=== PATIENT | female | born 1925 | race Caucasian/White ===

== ENCOUNTER 2016-07-15 12:20 | Emergency (ER) | payer OTHER ==
[2016-07-15 14:05] LABS: BASOPHILS 0.1 % (0-2); EOSINOPHILS 0.1 % (0-7); HEMATOCRIT 42.1 % (36.0-48.0); HEMOGLOBIN 14.1 g/dL (12-16); IMMATURE GRANULOCYTES 0.1 % (0-5); LYMPHOCYTES 14.6 % (15-50); MCH 31.4 pg (26.0-34.0); MCHC 33.5 g/dL (31.0-37.0); MCV 93.8 fL (80.0-100.0); MEAN PLATELET VOLUME 11.2 fL (7.4-10.4); MONOCYTES 13.1 % (2-11); PLATELET COUNT 116 10x3/uL (130-400); RBC 4.49 10x6/uL (4.00-5.40); RDW 14.2 % (11.5-14.5); WBC 11.2 10x3/uL (4.8-10.8)
[2016-07-15 14:51] LABS: ANION GAP 11.2 mmol/L (8-16); BILIRUBIN - TOTAL 0.88 mg/dL (0.2-1.3); CALCIUM 8.6 mg/dL (8.5-10.1); CARBON DIOXIDE 28.5 mmol/L (21.0-32.0); CREATININE - SERUM 0.8 mg/dL (0.6-1.3); POTASSIUM - SERUM 3.7 mmol/L (3.5-5.1); PROTEIN - SERUM 6.3 g/dL (6.4-8.2)
[2016-07-15 15:00] LABS: APPEARANCE HAZY (CLEAR); COLOR YELLOW (YELLOW); SPECIFIC GRAVITY 1.025 (1.005-1.020)
[2016-07-15 15:03] LABS: BILIRUBIN NEGATIVE (NEGATIVE); GLUCOSE NEGATIVE (NEGATIVE); KETONE MODERATE mg/dL (NEGATIVE); NITRITE NEGATIVE (NEGATIVE); PROTEIN 1+ mg/dL (NEGATIVE); RED CELLS - URINE 0-5 /hpf (0-5); UROBILINOGEN NORMAL (NORMAL)
[2016-07-15 15:04] LABS: AMORPHOUS SEDIMENT >1+ /lpf (NONE SEEN); BACTERIA MANY /hpf (NONE SEEN); EPITHELIAL CELLS 0-5 /hpf (0-5); GRANULAR CAST NONE SEEN /lpf (NONE SEEN); HYALINE CAST NONE SEEN /lpf (NONE SEEN); LEUKOCYTE ESTERASE 1+ (NEGATIVE); MUCUS <1+ /lpf (NONE SEEN); RED CELL CAST NONE SEEN /lpf (NONE SEEN); SPERMATOZOA NONE SEEN /hpf (NONE SEEN); WAXY CAST NONE SEEN /lpf (NONE SEEN); YEAST >1+ /hpf (NONE SEEN)
== END 2016-07-15 15:40 | disposition home or self-care (01) ==
LOC: D.ER 12:20
PROVIDERS: Emergency Medicine
DX: S16.1XXA Strain of muscle, fascia and tendon at neck level, initial encounter (principal); S13.9XXA Sprain of joints and ligaments of unspecified parts of neck, initial encounter; W19.XXXA Unspecified fall, initial encounter; R55 Syncope and collapse; N39.0 Urinary tract infection, site not specified; F03.90 Unspecified dementia, unspecified severity, without behavioral disturbance, psychotic disturbance, mood disturbance, and anxiety

== ENCOUNTER 2016-07-18 07:58 | Inpatient (IN) | payer MEDICARE, OTHER ==
[~2016-07-18] VITALS: Ht 160 cm; Wt 49.9 kg
[2016-07-18 08:44] LABS: APPEARANCE HAZY (CLEAR); BACTERIA MODERATE /hpf (NONE SEEN); BILIRUBIN NEGATIVE (NEGATIVE); COLOR DK YELLOW (YELLOW); EPITHELIAL CELLS 0-5 /hpf (0-5); GLUCOSE NEGATIVE (NEGATIVE); KETONE MODERATE mg/dL (NEGATIVE); LEUKOCYTE ESTERASE 1+ (NEGATIVE); NITRITE NEGATIVE (NEGATIVE); PROTEIN NEGATIVE (NEGATIVE); RED CELLS - URINE 0-5 /hpf (0-5); SPECIFIC GRAVITY 1.025 (1.005-1.020); UROBILINOGEN NORMAL (NORMAL); WHITE CELLS - URINE 25-50 /hpf (0-5); YEAST OCC /hpf (NONE SEEN)
[2016-07-18 08:46] LABS: UDS - AMPHET NEGATIVE QUAL (NEGATIVE); UDS - BARB NEGATIVE QUAL (NEGATIVE); UDS - BENZO NEGATIVE QUAL (NEGATIVE); UDS - COCAINE NEGATIVE QUAL (NEGATIVE); UDS - METH NEGATIVE QUAL (NEGATIVE); UDS - OPIATE NEGATIVE QUAL (NEGATIVE); UDS - PCP NEGATIVE QUAL (NEGATIVE); UDS - THC NEGATIVE QUAL (NEGATIVE)
[2016-07-18 09:01] LABS: BASOPHILS 0.1 % (0-2); EOSINOPHILS 0 % (0-7); HEMATOCRIT 44.6 % (36.0-48.0); HEMOGLOBIN 15.1 g/dL (12-16); IMMATURE GRANULOCYTES 0.3 % (0-5); MCH 31.9 pg (26.0-34.0); MCHC 33.9 g/dL (31.0-37.0); MCV 94.3 fL (80.0-100.0); MEAN PLATELET VOLUME 11.9 fL (7.4-10.4); MONOCYTES 14.7 % (2-11); NEUTROPHILS 71.9 % (40-80); RBC 4.73 10x6/uL (4.00-5.40); RDW 14.2 % (11.5-14.5); WBC 10.8 10x3/uL (4.8-10.8)
[2016-07-18 09:02] LABS: PLATELET COUNT 169 10x3/uL (130-400)
[2016-07-18 09:17] LABS: ALBUMIN 2.3 g/dL (3.4-5.0); BILIRUBIN - TOTAL 1.2 mg/dL (0.2-1.3); CALCIUM 8.4 mg/dL (8.5-10.1); CARBON DIOXIDE 24.4 mmol/L (21.0-32.0); CREATININE - SERUM 0.9 mg/dL (0.6-1.3); POTASSIUM - SERUM 4.4 mmol/L (3.5-5.1); PROTEIN - SERUM 6.6 g/dL (6.4-8.2)
--- NOTE | 2016-07-18 19:30 | NUR ---
REC'D PATIENT LYING IN BED ASLEEP, WAS EASY TO AROUSE. ALERT AND ORIENTED X1. CANNOT ANSWER QUESTIONS FOR ADMISSION HISTORY. CALLED DAUGHTER SEVERAL TIMES AND GOT NO ANSWER. STATES ON THE PAPERWORK THAT DAUGHTER DID NOT WANT TO ANSWER QUESTIONS ABOUT HER MOTHERS HISTORY EARLIER IN THE DAY. WILL PASS ON TO DAY NURSE ABT TRYING TO GET HISTORY, AND CALLING THE DAUGHTER AGAIN. NO DISTRESS NOTED. DENIED PAIN AT THIS TIME. DENIED FURTHER NEEDS AT THIS TIME. HAS PHLEM AT THE BACK OF HER THROUGHT WILL SUCTION TO GET OUT AND KEEP HOB ELEVATED DUE TO CHOKING RISK. WILL CONT TO MONITOR THROUGHOUT THE NIGHT. BED LOW, LOCKED, CALL LIGHT IN REACH.
[2016-07-19] VITALS (7 sets, daily range): BP systolic 132–168; BP diastolic 57–80; Ht 160 cm; Wt 49.9 kg
--- NOTE | 2016-07-19 02:30 | NUR ---
PATIENT WAS COMPLAINING OF PAIN IN HER STOMACH AND THAT SHE NEEDED TO HAVE A BM STATED"MY BOWELS WONT MOVE AND IT HURTS". LEWIS ALEXIS AND I WENT IN TO CHECK HER FOR IMPACTION AND SHE WAS IMPACTED, SOME WAS ALREADY STARTING TO COME OUT AND I HEPLED THE REST OUT UNTIL THERE WAS SOFT BM COMING. SHE HAD AN XL STOOL. PATIENT STATED" MY BOWELS FEEL BETTER NOW". AFTER WE WERE DONE. BED LOW, LOCKED, CALL LIGHT IN REACH, ALARM IS NOW ON.
[2016-07-19 07:04] LABS: BASOPHILS 0.1 % (0-2); EOSINOPHILS 0 % (0-7); HEMATOCRIT 38.6 % (36.0-48.0); HEMOGLOBIN 12.7 g/dL (12-16); IMMATURE GRANULOCYTES 0.2 % (0-5); LYMPHOCYTES 10.8 % (15-50); MCH 31.3 pg (26.0-34.0); MCHC 32.9 g/dL (31.0-37.0); MCV 95.1 fL (80.0-100.0); MEAN PLATELET VOLUME 10.5 fL (7.4-10.4); MONOCYTES 9.9 % (2-11); PLATELET COUNT 181 10x3/uL (130-400); RBC 4.06 10x6/uL (4.00-5.40); RDW 14.2 % (11.5-14.5); WBC 8.8 10x3/uL (4.8-10.8)
[2016-07-19 07:16] LABS: CALCIUM 8.4 mg/dL (8.5-10.1); CREATININE - SERUM 0.8 mg/dL (0.6-1.3)
--- NOTE | 2016-07-19 07:30 | NUR ---
RECIEVED PT DURING WALKING ROUNDS. PT RESTING IN BED WITH NO VISABLE SIGNS OF PAIN OR DISCOMFORT. ASSESSMENT DONE PER FLOWSHEET. BED IN LOW POSITION AND CALL LIGHT WITHIN REACH. WILL CONTINUE TO MONITOR.
--- NOTE | 2016-07-19 15:52 | NUR ---
SCHEDULED ANTIBIOTIC ADMINISTERED AT THIS TIME. PT SLEEPING WITH RESPIRATIONS EVEN AND NON LABORED. CALL LIGHT IN REACH, WILL CONTINUE WITH PLAN OF CARE.
--- NOTE | 2016-07-19 17:58 | NUR ---
ATTEMPTED TO CALL RICARDO RADHA, PT'S DAUGHTER, AT [phone] AT THIS TIME REGARDING MRI SCREENING. SHE DID NOT ANSWER, SO VOICEMAIL LEFT FOR HER TO CALL ME BACK.
--- NOTE | 2016-07-19 18:34 | NUR ---
SAAD VALADEZPET CARE ATTENDANT TO NOTIFY SPEECH THERAPY OF BEDSIDE SWALLOW EVALUATION. PT TAKEN TO MRI AT THIS TIME.
[2016-07-20] VITALS: BP 119/55
--- NOTE | 2016-07-20 | NUR ---
REC'D PATIENT LYING IN BED. NO DISTRESS NOTED. DENIED PAIN AT THIS TIME. ALERT AND ORIENTED X1. INSTRUCTED TO CALL IF NEEDED ANYTHING. VERBALIZED UNDERSTANDING. BED LOW, LOCKED, CALL LIGHT IN REACH, ALARM ON.
[2016-07-20 04:00] VITALS: BP 147/48
--- NOTE | 2016-07-20 04:27 | NUR ---
PATIENT IS RESTING IN BED. NO DISTRESS NOTED. CALLED DAUGHTER EARLIER IN THE NIGHT GOT THE VM AND LEFT A MSG REGARDING TRYING TO GET INFORMATION ABT HER MOTHERS HISTORY. CALL WAS NOT RETURNED.
[2016-07-20 08:31] VITALS: BP 147/51
[2016-07-20 09:14] LABS: BASOPHILS 0.1 % (0-2); EOSINOPHILS 0.5 % (0-7); HEMATOCRIT 40.5 % (36.0-48.0); HEMOGLOBIN 13.2 g/dL (12-16); IMMATURE GRANULOCYTES 0.5 % (0-5); LYMPHOCYTES 22.8 % (15-50); MCH 31.6 pg (26.0-34.0); MCHC 32.6 g/dL (31.0-37.0); MCV 96.9 fL (80.0-100.0); MEAN PLATELET VOLUME 11.2 fL (7.4-10.4); MONOCYTES 10.4 % (2-11); NEUTROPHILS 65.7 % (40-80); PLATELET COUNT 167 10x3/uL (130-400); RBC 4.18 10x6/uL (4.00-5.40); RDW 14.2 % (11.5-14.5)
[2016-07-20] MEDS ORDERED: LEVOXYL150 MCG PO (09:18)
[2016-07-20] MEDS ORDERED: RISPERDAL0.5 MG PO (09:18)
[2016-07-20] MEDS ORDERED: MACRODANTIN100 MG PO (09:19)
[2016-07-20] MEDS ORDERED: DONEPEZIL HCL5 M1 PO (09:19)
[2016-07-20] MEDS ORDERED: HYDROCODON-ACE1 EAC7 PO (09:20)
[2016-07-20] MEDS ORDERED: DEPAKOTE125 MG PO (09:20)
[2016-07-20] MEDS ORDERED: LOMOTIL TABLET1 TAB PO (09:22)
[2016-07-20] MEDS ORDERED: CHOLESTYRAMIN4 G/PK1 PO (09:22)
[2016-07-20 09:33] LABS: ALBUMIN 2.3 g/dL (3.4-5.0); ANION GAP 14.1 mmol/L (8-16); CALCIUM 8.4 mg/dL (8.5-10.1); CARBON DIOXIDE 26.8 mmol/L (21.0-32.0); CREATININE - SERUM 0.8 mg/dL (0.6-1.3); POTASSIUM - SERUM 3.9 mmol/L (3.5-5.1); PROTEIN - SERUM 5.9 g/dL (6.4-8.2)
[2016-07-20 09:49] LABS: BILIRUBIN - TOTAL 0.57 mg/dL (0.2-1.3)
--- NOTE | 2016-07-20 09:50 | NUR ---
PATIENT ALERT IN BED. NO SIGNS OF DISTRESS NOTED. SIDE RAILS UP X2. BED IN LOW POSITION. CALL LIGHT IN REACH. DOOR OPEN
[2016-07-20 12:14] VITALS: BP 140/51
[2016-07-20 16:28] VITALS: BP 121/44
[2016-07-20 20:00] VITALS: BP 152/59
--- NOTE | 2016-07-21 02:00 | NUR ---
PT IN BED WITH NO DISTRESS. RESPIRATIONS EVEN AND UNLABORED. SIDE RAILS X 2. BED LOW. CALL LIGHT IN REACH.
[2016-07-21 04:00] VITALS: BP 142/68
[2016-07-21 08:49] VITALS: BP 118/55
--- NOTE | 2016-07-21 11:04 | NUR ---
Patient Name: ROSA GARCIA Admission Status: ER Accout number: [id number] Admission Date: 07-20-2016 : 1927 Admission Diagnosis: Attending: LEONIE Current LOS: 1 Anticipated DC Date: 07-24-2016 Planned Disposition: Home Primary Insurance: MEDICARE A & B Discharge Planning Comments: CM CALLED PATIENTS DAUGHTER (RICARDO) REGARDING D/C NEEDS AND PLANS. PATIENT LIVES WITH HER DAUGHTER AND SHE WILL TRANSPORT HER HOME AT DISCHARGE. PATIENT HAS 2 STEPS TO ENTER HOME AND NO STAIRS INSIDE. PATIENT IS PARTIAL DEPENDENT-DAUGHTER HELPS HER DRESS, AND DIRECTS HER TO SHOWER. PATIENT HAS A ROLATOR WALKER AND GLUCOMETER AT HOME. DAUGHTER ALSO HELPS WITH MEDICATION. PATIENT HAS NO PCP AND WILL USE [facility] ON [address]. PATIENTS DAUGHTER CHOSE [facility] OVER THE PHONE IF NEEDED (KATHI FORM). CM WILL CONTINUE TO FOLLOW PATIENT WITH D/C NEEDS AND PLANS. PCP NONE [facility] [address] [phone] RICARDO GARCIA (DAUGHTER) [phone] Flocculator Operator: Teresita Pope Is the patient Alert and Oriented? No 0 * How many steps to enter\exit or inside your home? 2 W/O RAIL 0 * PCP NO PCP 0 * Pharmacy [facility] [address] 0 * Preadmission Environment Home with Family 0 * ADLs Partial Dependent 0 * Partial ADLs (Assistance needed) Ambulation Bathing Dressing Medication Management Toileting Transfers 0 * Equipment Glucometer Walker 0 * List name and contact numbers for known caregivers / representatives who currently or will assist patient after discharge: RICARDO GARCIA (DAUGHTER) [phone] 0 * Community resources currently utilized None 0 * Additional services required to return to the preadmission environment? Yes 0 * Can the patient safely return to the preadmission environment? Yes 0 * Has this patient been hospitalized within the prior 30 days at any hospital? No 0 Grand Total: 0
[2016-07-21 12:05] VITALS: BP 132/63
--- NOTE | 2016-07-21 14:10 | NUR ---
NUTRITION MONITORING & EVAL CHART REVIEWED. PUREED DIET WITH HONEY THICK LIQUIDS. REQUIRES ASSIST WITH MEALS. 25% INTAKE RECENT MEALS. WILL CONTINUE TO PROVIDE DIET, MONITOR PO INTAKE. RD FOLLOWING
--- NOTE | 2016-07-21 14:10 | CN ---
PATIENT NAME:ROSA GARCIA MEDICAL RECORD: [id number] : [birth year] LOCATION:D.[facility] ADMIT DATE: 07/20/16 ACCOUNT: [id number] CONSULTING PHYSICIAN: CHRISTY OROZCO MD REFERRING PHYSICIAN: SONYA ROBERTS MD DATE OF CONSULTATION: 07/19/2016 IDENTIFYING DATA: The patient is 89 years old and she is admitted to the hospital on a voluntary basis. CHIEF COMPLAINT: Confusion. HISTORY OF PRESENT ILLNESS: The patient is basically uninterviewable. She apparently is very hard of hearing and despite shouting directly into her ear, she is not understanding or at least I do not think she is understanding me. She is clearly quite confused, but it is difficult to tell if the answers she has given me do not make sense because she is hard of hearing or because she is confused. It is a mixture of both, I am just not sure the relative percentage is. For example, I really cannot shout any louder without disturbing patients in adjacent rooms, but shouting directly into her ear how are you repeatedly is interpreted as who wants me. The patient was brought to the Emergency Room in poor condition, has a urinary tract infection and has been admitted to the medical floor. MENTAL STATUS EXAMINATION: Not possible. ASSESSMENT: Dementia versus delirium. PLAN: At this time, I recommend the patient once medically stabilized be transferred to [facility]. If it is possible to find her hearing aids, assuming she has some that would be quite helpful. She clearly cannot live independently and is in need of assessment and services. TRANSINT:[id number] Voice Confirmation ID: [id number] DOCUMENT ID: [id number] CHRISTY OROZCO MD at 1410 CC: [id number] DICTATION DATE: 07/19/16 1315 NUT DEHYDRATOR OPERATOR: 07/19/162048 ADM IN [id number] [place] [address]
[2016-07-21 15:57] VITALS: BP 116/54
[2016-07-21 20:03] VITALS: BP 118/60
--- NOTE | 2016-07-21 22:43 | NUR ---
REC'D PATIENT ASLEEP IN BED. NO DISTRESS NOTED. WILL CONT TO MONITOR. WILL ADMIN PM MEDS PRESCRIBED. BED LOW, LOCKED, CALL LIGHT IN REACH, ALARM ON.
--- NOTE | 2016-07-22 02:00 | NUR ---
PT IN BED WITH NO DISTRESS. RESPIRATIONS EVEN AND UNLABORED. SIDE RAILS X 2. BED LOW. CALL LIGHT IN REACH.
--- NOTE | 2016-07-22 03:24 | NUR ---
PATIENT IS RESTING IN BED COMFORTABLY. NO DISTRESS NOTED. WILL CONT TO MONITOR. BED LOW, LOCKED, CALL LIGHT IN REACH.
[2016-07-22 04:00] VITALS: BP 160/67
--- NOTE | 2016-07-22 07:30 | NUR ---
PT ASSESSMENT COMPLETE AWAKE AND ALERT ORIENTED TO NAME ONLY PT DISORIENTED TO PLACE AND SITUATION. ALL ALDS PER STAFF ASSIT. INCT B/B NO ACUTE DISTRESS AT THIS TIME.
[2016-07-22 08:25] VITALS: BP 151/64
--- NOTE | 2016-07-22 09:48 | NUR ---
CHAD SPOKE WITH PATIENTS DAUGHTER (PER DR. CEDILLO REQUEST) REGARDING PATIENT GOING [facility] W[facility]YSICAL THERAPY TO GET STRONGER BEFORE GOING HOME. PATIENTS DAUGHTER AGREED TO DR. CEDILLO PLAN. RAQUEL IN [facility] WAS NOTIFIED. RAQUEL STATED DR. OROZCO WOULD COME AND SEE PATIENT TODAY.
--- NOTE | 2016-07-22 12:00 | NUR ---
PT WITH NO ACUTE DISTRES SNTOE DVOICES NEEDS TO STAFF YELLS OUT FREQUENTLY. INCT B/B BED ALARM ON
--- NOTE | 2016-07-22 13:38 | NUR ---
CM REASSESSMENT NOTE: PATIENT IS DISCHARGING TO [facility] TODAY-FAMILY AWARE
[2016-07-22 15:07] VITALS: BP 140/66
--- NOTE | 2016-07-22 15:30 | NUR ---
DISORIENTED TO TIME,PLACE AND SITUATION. FREQUENTLY YELLING OUT "HELP ME". BED ALARM IN USE.
--- NOTE | 2016-07-22 18:05 | NUR ---
REPORT CALLED TO [facility] PT TO BE TRANSFERED VIA WHEELCHAIR TO [facility].
== END 2016-07-22 18:06 | DRG 690 ==
LOC: D.ER 07:58 → D.MS 16:45 → OBSVTIME 16:45 → D.MS 07-20 16:00
PROVIDERS: Emergency Medicine; ADMIT Family Medicine
DX: N39.0 Urinary tract infection, site not specified (principal); F05 Delirium due to known physiological condition; F03.90 Unspecified dementia, unspecified severity, without behavioral disturbance, psychotic disturbance, mood disturbance, and anxiety; E11.9 Type 2 diabetes mellitus without complications; K58.9 Irritable bowel syndrome, unspecified; M16.0 Bilateral primary osteoarthritis of hip; M17.0 Bilateral primary osteoarthritis of knee

== ENCOUNTER 2016-07-22 17:02 | Inpatient (IN) | payer MEDICARE, OTHER ==
[~2016-07-22 17:02] MED LIST: CHOLESTYRAMIN4 G/PK1 PO; DEPAKOTE125 MG PO; DONEPEZIL HCL5 M1 PO; HYDROCODON-ACE1 EAC7 PO; LEVOXYL150 MCG PO; LOMOTIL TABLET1 TAB PO; MACRODANTIN100 MG PO; RISPERDAL0.5 MG PO
--- NOTE | 2016-07-22 17:43 | NUR ---
PT BEING ADMITTED FROM [facility] FOR INCREASED CONFUSION. UPON ADMIT TO THE HOSPITAL PT WAS COVERED IN FECES AND URINE. SHE WAS UNABLE TO COMMUNICATE EFFECTIVELY. SHE WAS UNABLE TO EAT AND DRINK. PT WAS NOT TAKING HER MEDICATIONS AT HOME. DAUGHTER GAVE VERBAL CONSENT FOR ADMIT AND STATED THAT SHE WAS HER GUARDIAN. PAPERWORK REQUESTED FROM THE DAUGHTER. CODE STATUS ADDRESSED AND PT IS A FULL CODE.
[2016-07-22 19:00] VITALS: BMI 23.4
[2016-07-22 19:08] LABS: BASOPHILS 0.2 % (0-2); EOSINOPHILS 3.5 % (0-7); HEMATOCRIT 39.3 % (36.0-48.0); HEMOGLOBIN 13.1 g/dL (12-16); IMMATURE GRANULOCYTES 0.7 % (0-5); LYMPHOCYTES 24.2 % (15-50); MCH 31.3 pg (26.0-34.0); MCHC 33.3 g/dL (31.0-37.0); MEAN PLATELET VOLUME 10.5 fL (7.4-10.4); MONOCYTES 11.3 % (2-11); NEUTROPHILS 60.1 % (40-80); PLATELET COUNT 174 10x3/uL (130-400); RBC 4.18 10x6/uL (4.00-5.40); RDW 13.8 % (11.5-14.5); WBC 8.7 10x3/uL (4.8-10.8)
[2016-07-22 19:29] LABS: HEMOGLOBIN A1C 6.3 % (4.8-6.0)
[2016-07-22 20:03] LABS: ALBUMIN 2.4 g/dL (3.4-5.0); ALKALINE PHOSPHATASE 70 U/L (46-116); ALT (SGPT) 41 U/L (10-68); BILIRUBIN - TOTAL 0.39 mg/dL (0.2-1.3); CALC OSMOLALITY 282 mosm/kg (275-300); CALCIUM 8.6 mg/dL (8.5-10.1); CARBON DIOXIDE 28.7 mmol/L (21.0-32.0); CHLORIDE - SERUM 103 mmol/L (98-107); CHOLESTEROL, TOTAL 116 mg/dL (0-200); CREATININE - SERUM 0.7 mg/dL (0.6-1.3); GLUCOSE 207 mg/dL (74-106); HDL CHOLESTEROL 39 mg/dL (32-96); LDL CHOLESTEROL 51 mg/dL (0-100); LDL-HDL RATIO 1.3 ratio (1.5-3.5); POTASSIUM - SERUM 3.1 mmol/L (3.5-5.1); PROTEIN - SERUM 6.2 g/dL (6.4-8.2); SODIUM 139 mmol/L (136-145); THYROID STIMULATING HORMONE 3.49 uIU/mL (0.36-3.74); TRIGLYCERIDE 132 mg/dL (30-200); UREA NITROGEN 11 mg/dL (7-18); eGFR NON AFRICAN AMERICAN 83 mL/min (90-120)
--- NOTE | 2016-07-22 21:03 | NUR ---
RECEIVED IN HALLWAY OUTSIDE OF NURSES STATION. CALM AND COOPERATIVE WITH CARE AND ASSESSMENTS. CONFUSED. NOT EXPRESSING NEEDS. REINFORCE FALLS SAFETY. RESTING IN BED EYES CLOSED AT THIS TIME. CONTINUE PLAN OF CARE
[2016-07-22 22:12] VITALS: BP 155/74; BMI 23.4
[2016-07-22 22:52] VITALS: BP 155/74
[2016-07-23 08:00] VITALS: BP 126/50
--- NOTE | 2016-07-23 13:07 | NUR ---
B) PATIENT IS CONFUSED, HER SHORT TERM MEMORY RECALL IS POOR. SHE SAYS "SOMEONE HELP ME" EVEN IF STAFF ARE RIGHT NEXT TO HER. PATIENT YELLS OUT AND SAYS SHE CAN'T WALK. I) PROVIDE PRESCRIBED MEDS. R) PATIENT IS COMPLIANT WITH MEDS, BUT DOES COMPREHEND WHAT IS BEING SAID TO HER. P) CONTINUE PLAN OF CARE.
[2016-07-23 14:30] VITALS: Wt 59.9 kg
[2016-07-23 20:00] VITALS: BP 133/58
--- NOTE | 2016-07-24 01:46 | NUR ---
B) Recieved patient in the day room, alert and oriented to self, very confused, yells outfor help at times when she needs nothing, I) Administered perscribed medications, monitored for safety and falls, redirected as needed, R) Medication compliant, difficultly staying asleep, yelling out that she is cold then kicking off her covers, P) Continue plan of care.
[2016-07-24 08:00] VITALS: BP 139/67
[2016-07-24 09:19] LABS: FOLATE (FOLIC ACID) - SERUM 3.9 ng/mL (>3.0)
[2016-07-24 10:20] LABS: VITAMIN D 25 HYDROXY 25.1 ng/mL (30.0-100.0)
--- NOTE | 2016-07-24 11:11 | NUR ---
PATIENT C/O PAIN, SHE SAYS IT IS GENERALIZED PAIN ON HER RIGHT SIDE. PATIENT IS YELLING OUT "HELP ME" SHE DID RECEIVE PAIN MEDS NORCO 5 PO NOW. DID TAKE HER TO THE BATHROOM AND SHE YELLED AND SAID "I CAN'T STAND, I CAN'T WALK, I'M PARALYZED" SHE DOES NOT WANT TO EVEN TRY, BUT SHE DID STAND WITH ASSIST. I) PROVIDE PRESCRIBED MEDS. R) PATIENT IS COMPLIANT WITH MEDS. P) CONTINUE PLAN OF CARE.
--- NOTE | 2016-07-24 12:00 | NUR ---
PATIENT IS STILL YELLING OUT "HELP ME, HELP ME". SHE STILL C/O PAIN. YELLS OUT "I HURT, I'M IN PAIN" REPOSITIONED.
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
[2016-07-24 19:20] VITALS: BP 150/66
--- NOTE | 2016-07-24 20:20 | NUR ---
RECEIVED IN DAYROOM, SITTING IN RECLINER WATCHING TV. CALM AND COOPERATIVE WITH CARE. VERY CONFUSED. ASSESSMENT COMPLETED PER FLOW SHEET. ADMINISTER PRESCRIBED MEDS. REDIRECT AND REORIENT NEEDED. MAINTAIN SAFETY PRECAUTIONS. MEDICATION COMPLIANT. CONTINUE PLAN OF CARE.
--- NOTE | 2016-07-25 09:07 | NUR ---
CALLED PATIENT'S DAUGHTER DID GET PHARMACY, IT IS [facility] ON [address].
[2016-07-25 09:25] VITALS: BP 113/64
--- NOTE | 2016-07-25 10:30 | NUR ---
B) PATIENT IS AWAKE AND ALERT, BUT SHE IS CONFUSED, SHE DOES KEEP ASKING GOD TO LET HER GO HOME "I HAVE AN APPOINTMENT WITH MY HOUSE, I HAVE A NICE HOUSE" SHE DID TRY TO PUT HERSELF IN THE FLOOR SEVERAL TIMES, SHE SAYS "IF I GET IN THE FLOOR THEN THAT WILL FIX MY SITUATION" PATIENT REDIRECTED AND REORIENTED TO REALITY. SAT WITH PATIENT AND SPOKE WITH HER A LITTLE AND THAT HELPED TO CALM HER, BIANCA SAT WITH HER AND JOKED WITH HER AND SHE LAUGHED AND SMILED. I) PROVIDE PRESCRIBED MEDS. R) PATIENT IS COMPLIANT WITH MEDS. MACI CHRISTIANSON RN WENT TO FLUSH S.L. AND IT BEGAN TO BURN PATIENT, D/C'D S.L., CATH INTACT, VIDYA APPLIED. P) CONTINUE PLAN OF CARE.
[2016-07-25 20:12] VITALS: BP 134/52
[2016-07-26 08:39] VITALS: BP 128/65
--- NOTE | 2016-07-26 10:43 | NUR ---
B) PATIENT KEEPS SAYING SHE HAS TO GO TO [facility]. PATIENT DID NOT WANT TO GET UP THIS MORNING. SHE SCREAMED. TOOK HER BLOOD PRESSURE AND SHE SCREAMED "ABUSE" SHE SAID WE WERE BEING CRUEL TO HER. PATIEN CAN SELF PROPEL IN THE W/C AND SHE CAN STAND, BUT SHE SCREAMS AT TIMES, SHE OFTEN SAYS "I CAN'T, I CAN'T" PATIENT IS CONFUSED, SHE IS VERY [place] AND SHE HAS A POOR SHORT TERM MEMORY RECALL. I) PROVIDE PRESCRIBED MEDS. R) PATIENT IS COMPLIANT WITH MEDS. SHE IS SLEEPY, SHE HAS HER HEAD ON THE TABLE, SHE WILL GO FOR A SHOWER SOON. P) CONTINUE PLAN OF CARE.
--- NOTE | 2016-07-26 15:07 | NUR ---
B) PATIENT IS AWAKE AND ALERT, BUT VERY CONFUSED. SHE THINKS SHE IS GOING HOME. SHE ASKS FOR SOMEONE TO HELP HER, BUT THEN HAS NO IDEA WHAT TO ASK FOR. SHE CAN NOT HEAR SO IT IS DIFFICULT TO CONVERSE WITH HER. I) PROVIDE PRESCRIBED MEDS. R) PATIENT IS COMPLIANT WITH MEDS. P) CONTINUE POC.
[2016-07-26 19:30] VITALS: BP 115/63
--- NOTE | 2016-07-27 | NUR ---
B) Recieved patient in the day room, in a edi chair, alert and oriented to self, patient is very [place], I) Administered perscribed medications, monitored for safety, R) Medication compliant, cooperative with staff, P) Continue plan of care.
[2016-07-27 07:00] VITALS: BP 120/72
--- NOTE | 2016-07-27 14:34 | NUR ---
RECEIVED THIS AM IN BED.TRANSFERRED TO RECLINER PER TWO POST LIDIA CARE FOR INCONTINENCE OF URINE.SKIN BENEATH BREAST OBSERVED TO BE RED,EXCORIATED.VERY HARD OF HEARING.CRIES OUT TO GOD TO GET HER HOME WHERE ITS WARM.EXTRA BLANKETS AND FLANNEL SHEET USED TO COVER HER.IS COMPLIANT WITH MEDS AND STAFF.WILL CONTINUE WITH PLAN OF CARE AND MONITOR FOR CHANGES.
[2016-07-27 19:30] VITALS: BP 124/89
--- NOTE | 2016-07-27 20:02 | NUR ---
RECEIVED IN DAYROOM. SITTING IN A RECLINING CHAIR WITH PEERS AT HER SIDE. CONFUSED. CALM AND COOPERATIVE WITH CARE AND ASSESSMENTS. REDIRECT AND REORIENT NEEDED. CONTINUES TO SIT QUIETLY IN RECLINING CHAIR. CONTINUE PLAN OF CARE
[2016-07-28 07:00] VITALS: BP 142/63
--- NOTE | 2016-07-28 09:00 | PN ---
PATIENT:ROSA GARCIA MEDICAL RECORD: [id number] LOCATION:[facility] ADMISSION DATE: 07/22/16 PROGRESS NOTE DATE OF SERVICE: 07/25/2016 SUBJECTIVE: The patient states that she does not like being here. OBJECTIVE: The patient has continued to show affective lability. She is very defensive when spoken to; however, she did sleep 7 hours. Adult protective services is involved. On exam, mood is irritable. Affect is brittle. Speech is repetitive. Content of thought is positive for nonspecific paranoid ideation. Sensorium shows no change. ASSESSMENT: No change in diagnosis. PLAN: 1. Continue present medications. 2. Continue supportive therapy. TRANSINT:[id number] Voice Confirmation ID: [id number] DOCUMENT ID: [id number] NORRIS NEWBY III, MD at 0900 CC: [id number] DICTATION DATE: 07/25/168 EQUIPMENT CLEANER AND TESTER: 07/25/16 2111 ADM IN [id number] [place] [address]
--- NOTE | 2016-07-28 13:32 | NUR ---
Recived this am, alert and oriented to self only, unccoperative with ADL care, yells out and does not reorient to situation. Difficulty with conversation and directions, hearing aid in place right ear. Redirect and reorient. Monitor safety. No evidence of reorientation. Small open area approxiomately 0.5x1.5 cm to right buttock, alee cream applied, skin kept clean and dry. Rodrick cushion to chair. Safety maintained. Continue plan of care.
--- NOTE | 2016-07-28 14:09 | PN ---
PATIENT:ROSA GARCIA MEDICAL RECORD: [id number] LOCATION:[facility] ADMISSION DATE: 07/22/16 PROGRESS NOTE DATE OF SERVICE: 07/24/2016 SUBJECTIVE: The patient's case was discussed with staff. She has no new complaint. OBJECTIVE: The patient is severely impaired cognitively, but she has not been openly aggressive. She is not eating well, but she says she is going to try to do better. ASSESSMENT: No change in diagnoses. PLAN: The patient's current medicines are being reviewed. I am going to stop her Depakote which is subtherapeutic. Her long-term prognosis is guarded. TRANSINT:[id number] Voice Confirmation ID: [id number] DOCUMENT ID: [id number] CHRISTY OROZCO MD at 1409 CC: [id number] DICTATION DATE: 07/24/16 1414 MUNICIPAL SERVICES MANAGER: 07/25/16 0258 ADM IN [id number] [place] [address]
--- NOTE | 2016-07-28 14:56 | NUR ---
Nutrition follow-up: Diet: Regular puree with honey thick liquids Magic Cup BID PO intake ~45% average of last 9 meals Labs reviewed No BM charted since admit RDN following.
[2016-07-28 19:30] VITALS: BP 137/61
--- NOTE | 2016-07-28 19:40 | NUR ---
RECEIVED IN HALLWAY. SITTING OUTSIDE OF NURSES STAION. CONFUSED. CALM AND COOPERATIVE WITH CARE AND ASSESSMENTS. REDIRECT AND REORIENT NEEDED. ENCOURAGE TO EXPRESS NEEDS. CONTINUES TO SIT QUIETLY IN CHAIR. CONTINUE PLAN OF CARE
--- NOTE | 2016-07-29 09:42 | PN ---
PATIENT:ROSA GARCIA MEDICAL RECORD: [id number] LOCATION:[facility] ADMISSION DATE: 07/22/16 PROGRESS NOTE DATE OF SERVICE: 07/28/2016 SUBJECTIVE: The patient case was discussed with staff. She has no new complaint. OBJECTIVE: The patient was in good behavioral control, but at times she can be quite uncooperative. When I speak with her, she is cooperative, but right after doing so the aide in the day room told me that she has been verbally abusive and agitated all throughout the day. She is not eating very well, only about half of what is presented to her. She is sleeping reasonably well. ASSESSMENT: No change in diagnosis. PLAN: At this point, I think the Risperdal that the patient has been on needs to be changed and I am going to give her a reasonable dose of Geodon for her underlying agitation. Her fci prognosis is guarded. Adult protective services is involved in the case to make sure she is receiving adequate and appropriate care and I will work with them on discharge planning. TRANSINT:[id number] Voice Confirmation ID: [id number] DOCUMENT ID: [id number] CHRISTY OROZCO MD at 0942 CC: [id number] DICTATION DATE: 07/28/16 1419 MUSIC THERAPIST PUBLIC SCHOOL SYSTEM: 07/28/16 2205 ADM [id number] [place] [address]
[2016-07-29 10:14] VITALS: BP 118/61
--- NOTE | 2016-07-29 14:57 | NUR ---
ORIENTED TO SELF ONLY.COMPLIANT WITH MEDS AND STAFF.MEDS TAKEN CRUSHED AND IN APPLESAUCE.WILL CONTINUE WITH PLAN OF CARE,MONITOR FOR CHANGES AND SAFETY
[2016-07-29 19:43] VITALS: BP 122/59
--- NOTE | 2016-07-29 19:57 | NUR ---
RECEIVED IN DAYROOM. SITTING IN RECLINING CHAIR WITH HER FEET UP. CONFUSED. CALM AND COOPERATIVE WITH CARE AND ASSESSMENTS. REDIRECT AND REORIENT NEEDED. ENCOURAGE TO EXPRESS NEEDS. CONTINUES TO SIT QUIETLY. CONTINUE PLAN OF CARE
[2016-07-30 08:49] VITALS: BP 145/71
--- NOTE | 2016-07-30 10:00 | NUR ---
B) Rec'd pt in day room, alert, confused, cooperative, calm, no s/s distress. I) Admin meds as ordered, group therapy provided. R) No s/s adverse reaction to meds, tee well. Compliant with group therapy. P) Cont current POC including meds and group therapy.
--- NOTE | 2016-07-30 14:59 | PN ---
PATIENT:ROSA GARCIA MEDICAL RECORD: [id number] LOCATION:JENNY [facility] ADMISSION DATE: 07/22/16 PROGRESS NOTE DATE OF SERVICE: 07/29/2016 SUBJECTIVE: The patient's case was discussed with staff. She has no new complaint. OBJECTIVE: The patient denies intent to harm herself or others. She generally tolerates her medicines well. ASSESSMENT: No change in diagnoses. PLAN: Brief supportive and educational interventions were made. Long-term prognosis is guarded. TRANSINT:[id number] Voice Confirmation ID: [id number] DOCUMENT ID: [id number] CHRISTY OROZCO MD at 1459 CC: [id number] DICTATION DATE: 07/29/16 1004 SOIL SURVEYOR: 07/29/16 1034 ADM IN [id number]
[2016-07-30 20:00] VITALS: BP 140/50
--- NOTE | 2016-07-31 00:56 | NUR ---
B) Recieved patient in the day room, in a gerichair, alert and oriented to self, calm and cooperative, I) Administered perscribed medications, monitored for safety and falls, R) Medication compliant, sleeping now, P) Continue plan of care.
[2016-07-31 08:30] VITALS: BP 138/77
--- NOTE | 2016-07-31 08:59 | PN ---
PATIENT:ROSA GARCIA MEDICAL RECORD: [id number] LOCATION:JENNY [facility]gron ADMISSION DATE: 07/22/16 PROGRESS NOTE DATE OF SERVICE: 07/30/2016 SUBJECTIVE: The patient's case was discussed with staff. She has no new complaint. OBJECTIVE: The patient denies intent to harm herself or others. She does tolerate her medicines well. ASSESSMENT: No change in diagnoses. PLAN: The patient may be transitioned out of the hospital soon if this level of improvement is maintained. TRANSINT:[id number] Voice Confirmation ID: [id number] DOCUMENT ID: [id number] CHRISTY OROZCO MD at 0859 CC: [id number] DICTATION DATE: 07/30/16 1506 SPECIALTY MOLDER: 07/30/16 2112 ADM [id number] [place] [address]
--- NOTE | 2016-07-31 11:40 | NUR ---
B) PATIENT IS CONFUSED AND SHE SAYS "CAN SOMEONE HELP ME TO TRANSFER" PATIENT IS ORIENTED TO SELF ONLY. SHE IS [place]. I) PROVIDE PRESCRIBED MEDS. R) PATENT IS COMPLIANT WITH MEDS. P) CONTINUE POC.
--- NOTE | 2016-07-31 21:00 | NUR ---
RECEIVED IN DAYROOM SITTING IN RECLINER. ORIENTED TO SELF ONLY. RESTING WITH EYES CLOSED. CALM AND QUIET WITH ASSESSMENT. MEDICATIONS TAKEN CRUSHED IN APPLESAUCE. WILL CONTINUE PLAN OF CARE, MONITOR FOR SAFETY AND ANY CHANGES.
[2016-07-31 22:04] VITALS: BP 147/55
[2016-08-01 09:48] VITALS: BP 164/71
--- NOTE | 2016-08-01 16:24 | NUR ---
Received alert and oriented to self only. Redirect and reorient. Monitor for any changes in behavior. Encourage group participation. Monitor safety. Compliant with medications. Cooperative and calm with care. No yelling out with am ADL care. Safety maintained. Continue with plan of care.
--- NOTE | 2016-08-01 17:11 | PN ---
PATIENT:ROSA GARCIA MEDICAL RECORD: [id number] LOCATION:[facility] ADMISSION DATE: 07/22/16 PROGRESS NOTE DATE OF SERVICE: 07/31/2016 SUBJECTIVE: The patient's case was discussed with staff. She has no new complaint. OBJECTIVE: The patient is in good behavioral control with limited insight about her condition. She generally tolerates her medicines well. ASSESSMENT: No change in diagnoses. PLAN: Current medicines and therapies have been reviewed and will be maintained. Long-term prognosis is guarded. Brief supportive and educational interventions were made. I anticipate she can be transitioned out of the hospital soon if this level of improvement is maintained. TRANSINT:[id number] Voice Confirmation ID: [id number] DOCUMENT ID: [id number] CHRISTY OROZCO MD at 1711 CC: [id number] DICTATION DATE: 07/31/16 1437 GPS NAVIGATION INSTALLER: 08/01/16 0010 ADM IN [facility] [address] [place] [address]
[2016-08-01 19:30] VITALS: BP 136/76
--- NOTE | 2016-08-02 02:17 | NUR ---
B) Recieved patient in the day room, alert and oriented to self, calm and cooperative, I) Administered perscribed medications, monitored for safety and falls, R) Medication compliant, quiet and cooperative, P) Continue plan of care.
[2016-08-02 08:53] VITALS: BP 143/80
--- NOTE | 2016-08-02 11:51 | PN ---
PATIENT:ROSA GARCIA MEDICAL RECORD: [id number] LOCATION:[facility] ADMISSION DATE: 07/22/16 PROGRESS NOTE DATE OF SERVICE: 08/01/2016 SUBJECTIVE: The patient's case was discussed with staff. She has no new complaint. OBJECTIVE: The patient is in good behavioral control with poor insight about her condition. She generally tolerates her medicines well. ASSESSMENT: No change in diagnoses. PLAN: Brief supportive and educational interventions were made. Prison prognosis is guarded. TRANSINT:[id number] Voice Confirmation ID: [id number] DOCUMENT ID: [id number] CHRISTY OROZCO MD at 1151 CC: [id number] DICTATION DATE: 08/01/16 1724 CUT FILE CLERK: 08/01/16 2350 ADM IN [place] [id number] [place] [address]
--- NOTE | 2016-08-02 13:07 | NUR ---
B) PATIENT IS CONFUSED, SHE KNOWS HER NAME AND KNOWS SHE IS NOT AT HOME, SHE HAS NOT BEEN YELLING OR TRYING TO PUT HERSELF IN THE FLOOR. SHE IS TORRES MARTINEZ, BUT MORE COMPLIANT TO REDIRECT AND LISTEN TO REASON. PATIENT IS A TOTAL ASSIST. SHE CAN STAND, BUT SHE DOES NOT AMBULATE, SHE SITS IN A W/C OR GERICHAIR. I) PROVIDE PRESCRIBED MEDS. R) PATIENT IS COMPLIANT WIT MEDS AND SHE IS FEEDING HERSELF AND DOES SAY WHEN SHE NEEDS TO USE THE BATHROOM. P) CONTINUE POC.
[2016-08-02 19:30] VITALS: BP 115/80
--- NOTE | 2016-08-02 21:30 | NUR ---
RECEIVED IN DAYROOM SITTING IN W/C. CALM AND COOPERATIVE WITH CARE. ASSESSMENT COMPLETED PER FLOW SHEET. COMPLIANT WITH MEDS. VSS. WILL CONTINUE PLAN OD CARE.
[2016-08-03 07:00] VITALS: BP 147/78
--- NOTE | 2016-08-03 14:45 | NUR ---
B) PATIENT IS SLEEPING IN DAY ROOM IN A GERICHAIR. JOAQUIN SAUCEDO REPORTS PATIENT HAS BEEN CALM AND POLITE ALL AM AND SHE HAS NOT HAD ANY AGGRESSION TODAY. PATIENT IS A TOTAL ASSIST TO TRANSFER. I) PROVIDE PRESCRIBED MEDS. R) PATIENT IS COMPLIANT WITH MEDS AND UNIT MILIEU. P) CONTINUE POC.
[2016-08-03 21:17] VITALS: BP 148/64
--- NOTE | 2016-08-04 03:49 | NUR ---
B) recieved patient in the day room, alert and oriented to self, calm and cooperative, withdrawn and isolative, I) Administered perscribed medications, monitored for falls and safey, R) Medication compliant, resting quietly now, p) Continue plan of care.
[2016-08-04 07:58] VITALS: BP 185/87
[2016-08-04 11:09] VITALS: BP 137/72
--- NOTE | 2016-08-04 12:48 | NUR ---
Alert and oriented to name only. Pleasant and calm with care. Redirect and reorient as need. Encourage group participation and monitor safety. No evidence of reorientation to place or situation. Cooperative with unit milieu. Patient asked staff for a puzzle to do, sat quietly at table doing an alphabet puzzle, seems to enjoy with no behaviors. Safety maintained. Continue plan of care. Skin kept clean and dry, open area to right buttock uimproving. Zak cream in use.
--- NOTE | 2016-08-04 14:05 | PN ---
PATIENT:ROSA GARCIA MEDICAL RECORD: [id number] LOCATION:[facility] ADMISSION DATE: 07/22/16 PROGRESS NOTE DATE OF SERVICE: 08/02/2016 SUBJECTIVE: The patient's case was discussed with staff. She has no new complaint. OBJECTIVE: The patient is in good behavioral control with poor insight about her condition. ASSESSMENT: No change in diagnoses. PLAN: Supportive and educational interventions were made. The patient seems to be relatively calm and I would anticipate she can be transitioned out of the hospital soon if this level of improvement is maintained. TRANSINT:[id number] Voice Confirmation ID: [id number] DOCUMENT ID: [id number] CHRISTY OROZCO MD at 1405 CC: [id number] DICTATION DATE: 08/02/16 1158 LAWN CARE PROFESSIONAL: 08/02/16 1209 ADM IN [place] [id number] [place] [address]
--- NOTE | 2016-08-04 14:15 | NUR ---
SW ATTEMPTED TO CONTACT DTR TO DISCUSS DISCHARGE PLANNING. UNABLE TO LEAVE VM AT THIS TIME. YOANA ASKED RN TO TALK TO HER WHEN SHE CALLS AND CHECKS ON PT THIS EVENING.
[2016-08-04] MEDS ORDERED: GEODON20 MG PO (14:41)
[2016-08-04] MEDS ORDERED: LIDODERM 5 %1 PATCH TRANSDERM (14:41)
[2016-08-04] MEDS ORDERED: NYSTATIN1 PWD TOPICAL (14:42)
--- NOTE | 2016-08-04 19:56 | NUR ---
RECEIVED IN DAYROOM. SITTING QUIETLY IN CHAIR. CALM AND COOPERATIVE WITH CARE AND ASSESSMENTS. REDIRECT AND REORIENT NEEDED. ENCOURAGE TO EXPRESS NEEDS. CONTINUES TO SIT QUIETLY. CONTINUE PLAN OF CARE
[2016-08-04 20:13] VITALS: BP 129/51
[2016-08-05 07:43] VITALS: BP 137/54
--- NOTE | 2016-08-05 13:30 | NUR ---
Patient daughter here to pick her up, discahrge instructions given. Instructed that medications were called into [facility] pharmacy on [address], taught on importance of good incontinence care, turning and positioning and proper nutirtion. Nystatin powder and alee cream with patient belongings. Verbalized understanding. Discharged with no incident.
--- NOTE | 2016-08-05 14:44 | PN ---
PATIENT:ROSA GARCIA MEDICAL RECORD: [id number] LOCATION:[facility] ADMISSION DATE: 07/22/16 PROGRESS NOTE DATE OF SERVICE: 08/04/2016 SUBJECTIVE: The patient's case was discussed with staff. She has no new complaint. OBJECTIVE: The patient is in good behavioral control with limited insight about her condition. She tolerates her medicines well. ASSESSMENT: No change in diagnoses. PLAN: Brief supportive and educational interventions were made. Long-term prognosis is guarded. I do think she is reasonably safe to be transitioned to a lower level of care and if this level of improvement is maintained, I anticipate transitioning her out of the hospital tomorrow morning. TRANSINT:[id number] Voice Confirmation ID: [id number] DOCUMENT ID: [id number] CHRISTY OROZCO MD at 1444 CC: [id number] DICTATION DATE: 08/04/16 1450 HAND LENS POLISHER: 08/04/16 1837 ADM IN [place] [id number] [place] [address]
--- NOTE | 2016-08-05 17:38 | NUR ---
Received this am alert and oriented to name. Pleasant and cooperative with care. Redirect and reorient as need. Calm and in good behavior control. No aggression. Safety maintained. Continue with plan for discharge today.
== END 2016-08-05 13:30 | disposition home or self-care (01) | DRG 57 ==
LOC: D.PSYCH 17:02
PROVIDERS: ADMIT Psychiatry & Neurology Psychiatry
DX: G30.1 Alzheimer's disease with late onset (principal); F02.81 Dementia in other diseases classified elsewhere, unspecified severity, with behavioral disturbance; L97.419 Non-pressure chronic ulcer of right heel and midfoot with unspecified severity; N39.0 Urinary tract infection, site not specified; F32.9 Major depressive disorder, single episode, unspecified; E11.40 Type 2 diabetes mellitus with diabetic neuropathy, unspecified; E11.621 Type 2 diabetes mellitus with foot ulcer; B37.9 Candidiasis, unspecified; K21.9 Gastro-esophageal reflux disease without esophagitis; I25.10 Atherosclerotic heart disease of native coronary artery without angina pectoris; I25.2 Old myocardial infarction; H40.9 Unspecified glaucoma; Z91.81 History of falling; D50.9 Iron deficiency anemia, unspecified; E55.9 Vitamin D deficiency, unspecified; E03.9 Hypothyroidism, unspecified

== ENCOUNTER 2016-08-08 09:04 | Inpatient (IN) | payer MEDICARE, OTHER ==
[~2016-08-08] VITALS: Ht 157.5 cm; Wt 64.9 kg
[~2016-08-08 09:04] MED LIST changes: +GEODON20 MG PO; +LIDODERM 5 %1 PATCH TRANSDERM; +NYSTATIN1 PWD TOPICAL
[2016-08-08 09:55] LABS: BASOPHILS 0.3 % (0-2); EOSINOPHILS 2.2 % (0-7); HEMATOCRIT 34.4 % (36.0-48.0); HEMOGLOBIN 11.4 g/dL (12-16); IMMATURE GRANULOCYTES 0.1 % (0-5); LYMPHOCYTES 27.5 % (15-50); MCH 31.6 pg (26.0-34.0); MCHC 33.1 g/dL (31.0-37.0); MCV 95.3 fL (80.0-100.0); MEAN PLATELET VOLUME 10.4 fL (7.4-10.4); NEUTROPHILS 60.9 % (40-80); RBC 3.61 10x6/uL (4.00-5.40); RDW 15.6 % (11.5-14.5); WBC 6.9 10x3/uL (4.8-10.8)
[2016-08-08 09:56] LABS: PLATELET COUNT 137 10x3/uL (130-400)
[2016-08-08 10:27] LABS: ALBUMIN 2.4 g/dL (3.4-5.0); ALKALINE PHOSPHATASE 58 U/L (46-116); ALT (SGPT) 12 U/L (10-68); CALCIUM 8.4 mg/dL (8.5-10.1); CARBON DIOXIDE 30.8 mmol/L (21.0-32.0); CHLORIDE - SERUM 108 mmol/L (98-107); CREATINE KINASE 57 UL (21-215); CREATININE - SERUM 0.7 mg/dL (0.6-1.3); MAGNESIUM - SERUM 2.1 mg/dL (1.8-2.4); PRO BNP 422 pg/mL (0-450); PROTEIN - SERUM 5.9 g/dL (6.4-8.2); SODIUM 145 mmol/L (136-145); TROPONIN-I < 0.017 ng/mL (0.000-0.060); UREA NITROGEN 10 mg/dL (7-18); eGFR NON AFRICAN AMERICAN 83 mL/min (90-120)
[2016-08-08 10:32] LABS: CALC OSMOLALITY 289 mosm/kg (275-300); GLUCOSE 142 mg/dL (74-106)
[2016-08-08 11:39] LABS: APPEARANCE SLT CLOUDY (CLEAR); BILIRUBIN NEGATIVE (NEGATIVE); COLOR YELLOW (YELLOW); GLUCOSE NEGATIVE (NEGATIVE); KETONE NEGATIVE (NEGATIVE); LEUKOCYTE ESTERASE 2+ (NEGATIVE); NITRITE POSITIVE (NEGATIVE); PROTEIN TRACE mg/dL (NEGATIVE); SPECIFIC GRAVITY 1.025 (1.005-1.020); UROBILINOGEN NORMAL (NORMAL)
[2016-08-08 11:40] LABS: AMORPHOUS SEDIMENT <1+ /lpf (NONE SEEN); BACTERIA MANY /hpf (NONE SEEN); EPITHELIAL CELLS RARE /hpf (0-5); MUCUS <1+ /lpf (NONE SEEN); RED CELLS - URINE NONE SEEN /hpf (0-5); WHITE CELLS - URINE >50 /hpf (0-5)
--- NOTE | 2016-08-08 16:34 | NUR ---
REPORT REC'D. ROOM READY AND AWAITING PT ARRIVAL.
[2016-08-08 17:20] VITALS: BMI 26.9
--- NOTE | 2016-08-08 17:23 | NUR ---
PT REC'D TO ROOM VIA STRETCHER. ACCOMPANIED BY HOSPITAL STAFF. NO COMPLAINTS OF PAIN. REGULAR HEART RATE AND RHYTHM. LUNG SOUNDS CLEAR AND EQUAL BILAT. BOWEL SOUNDS ACTIVE X4 QUADRANTS. ABD ROUND AND SOFT. PIV TO L HAND PANT WITH LR INFUSING AT 100ML/HR. +3 PITTING EDEMA TO BILAT FEET, +2 PITTING EDEMA TO BILAT LE, AND +1 PITTING EDEMA TO BILAT THIGHS. 1" WIDE SORE TO R CALF, BRUISE TO R UPPER ARM. ALVAREZ CATHETER IN PLACE DRAINING DARK YELLOW URINE WITH SOME SEDIMENT TO GRAVITY. ALERT TO SELF ONLY. UNABLE TO REORIENT. PLEASENTLY CONFUSED. VSS. BED ALARM ON. BED LOW, CALL LIGHT IN REACH, DENIES NEEDS. CPOC.
--- NOTE | 2016-08-08 18:32 | NUR ---
PT RESTING IN BED WITH EYES CLOSED. NO SIGNS OF DISTRESS. RESP EVEN AND UNLABORED. BED LOW, CALL LIGHT IN REACH, BED ALARM ON, CPOC.
[2016-08-08 20:00] VITALS: BP 144/56
[2016-08-09] VITALS: BP 138/59
[2016-08-09 04:00] VITALS: BP 140/62
[2016-08-09 08:35] VITALS: BP 148/53
--- NOTE | 2016-08-09 09:30 | NUR ---
ASSESSMENT COMPLETE. IV TO L HAND PATENT. SCDS IN USE TO BILAT LEGS. O2 1L NC. INCONT OF BOWEL. 4+ PEDAL EDEMA BILATERALLY. UNABLE TO REORIENT TO TIME,PLACE OR SITUATION. COMPLAINING OF BACK PAIN. NORCO GIVEN.
--- NOTE | 2016-08-09 11:40 | NUR ---
RESTING QUIETLY WITH EYES CLOSED. RESP EVEN,NONLABORED.
[2016-08-09 12:01] VITALS: BP 129/40
[2016-08-09 13:55] VITALS: Ht 157.5 cm; Wt 64.9 kg
--- NOTE | 2016-08-09 14:43 | NUR ---
RESTING QUIETLY ON RIGHT SIDE. NO CHANGES NOTED AT PRESENT.
[2016-08-09 16:13] VITALS: BP 152/61
--- NOTE | 2016-08-09 17:43 | NUR ---
RESTING QUIETLY WITH EYES CLOSED. RESP EVEN,NONLABORED.
[2016-08-09 19:00] VITALS: BP 145/72
--- NOTE | 2016-08-10 02:09 | NUR ---
REC'D PATIENT LYING IN BED. ALERT AND ORIENTED X1. DENIED PAIN AT THIS TIME. DENIED FURTHER NEEDS AT THIS TIME. IS WANTING TO LEAVE THE HOSPITAL. INSTRUCTED TO CALL IF NEEDED ANYTHING. WILL ADMIN PM/AM MEDS PRESCRIBED. WILL CONT TO MONITOR. BED LOW, LOCKED, CALL LIGHT IN REACH, ALARM ON.
[2016-08-10 04:00] VITALS: BP 153/68
--- NOTE | 2016-08-10 07:54 | NUR ---
RESTING QUIETLY WITH EYES CLOSED. RESP EVEN,NONLABORED.
[2016-08-10 08:14] VITALS: BP 145/56
--- NOTE | 2016-08-10 08:45 | NUR ---
ASSESSMENT COMPLETE. IV TO L HAND PATENT. ALVAREZ PATENT DRAINING YELLOW URINE. ORIENTED TO SELF ONLY. CHITIMACHA. SCDS IN USE TO BILAT LEGS.3+PEDAL EDEMA BILATERALLY. BED ALARM IN USE.
--- NOTE | 2016-08-10 12:00 | NUR ---
NO CHANGES NOTED AT PRESENT.
[2016-08-10 13:10] VITALS: BP 148/62
--- NOTE | 2016-08-10 17:24 | NUR ---
BEING FED DINNER BY FORENSIC TECHNICIAN. TOLERATING PUREED DIET WITHOUT DIFFICULTY.
--- NOTE | 2016-08-10 17:57 | NUR ---
IV TO L HAND WITH SWELLING NOTED. IV REMOVED. CATHETER TIP INTACT. IV TO SITED TO L WRIST WTIH 22 GAUGE X 1 ATTEMPT.
--- NOTE | 2016-08-10 19:53 | NUR ---
REC'D PATIENT LYING IN BED. ALERT AND ORIENTED X2. DENIED PAIN AT THIS TIME. DENIED FURTHER NEEDS AT THIS TIME. WILL CONT TO MONITOR. INSTRUCTED TO CALL IF NEEDED ANYTHING. BED LOW, LOCKED, CALL LIGHT IN REACH, ALARM ON. WILL ADMIN PM/AM MEDS PRESCRIBED.
[2016-08-10 20:00] VITALS: BP 128/60
--- NOTE | 2016-08-11 02:00 | NUR ---
PT IN BED WITH NO DISTRESS. ALVAREZ DRAINING URINE BY GRAVITY. SCD'S ON. LEFT WRIST IV WITH FLUIDS RUNNING PER ORDER. SIDE RAILS X 2. BED LOW. CALL LIGHT IN REACH.
[2016-08-11 04:00] VITALS: BP 139/59
--- NOTE | 2016-08-11 07:08 | NUR ---
PT REC'D FROM [facility] TO. RESTING IN BED WITH EYES CLOSED. NO SIGNS OF DISTRESS. RESP EVEN AND UNLABORED. BED LOW, CALL LIGHT IN REACH, CPOC.
[2016-08-11 09:28] VITALS: BP 132/69
[2016-08-11 11:01] LABS: BASOPHILS 0.1 % (0-2); EOSINOPHILS 1.6 % (0-7); HEMATOCRIT 38.2 % (36.0-48.0); HEMOGLOBIN 12.7 g/dL (12-16); IMMATURE GRANULOCYTES 0.2 % (0-5); LYMPHOCYTES 15.7 % (15-50); MCH 31.8 pg (26.0-34.0); MCHC 33.2 g/dL (31.0-37.0); MCV 95.7 fL (80.0-100.0); MEAN PLATELET VOLUME 10.5 fL (7.4-10.4); MONOCYTES 11.6 % (2-11); NEUTROPHILS 70.8 % (40-80); PLATELET COUNT 151 10x3/uL (130-400); RBC 3.99 10x6/uL (4.00-5.40); RDW 15.3 % (11.5-14.5); WBC 8.1 10x3/uL (4.8-10.8)
[2016-08-11 11:29] LABS: ALBUMIN 2.4 g/dL (3.4-5.0); ANION GAP 9.4 mmol/L (8-16); BILIRUBIN - TOTAL 0.9 mg/dL (0.2-1.3); CALCIUM 8.6 mg/dL (8.5-10.1); CARBON DIOXIDE 31.8 mmol/L (21.0-32.0); CREATININE - SERUM 0.8 mg/dL (0.6-1.3); POTASSIUM - SERUM 4.2 mmol/L (3.5-5.1); PROTEIN - SERUM 6.1 g/dL (6.4-8.2)
[2016-08-11 12:16] VITALS: BP 164/69
--- NOTE | 2016-08-11 15:58 | NUR ---
PATIENT IS RESTING QUIETLY ON HER LEFT SIDE. PATIENT IS RECIEVING OXYGEN VIA NASAL CANNULA AT 1L/MIN. NO SIGNS OF DISTRESS NOTED. BED IN LOWEST POSITION, CALL LIGHT IN REACH. BED RIALS UP X'S 2.
[2016-08-11 16:01] VITALS: BP 119/71
--- NOTE | 2016-08-11 18:19 | NUR ---
Noted patient had an admission 07/18/16 with dx of AMS and UTI. She was admitted from home. Reportedly lives alone. Has a daughter, Balbina Garzon @ [phone]. The patient was transferred to [facility] 07/22/16 with discharge 08/05/16. She presented to the ER 08/09/16 with AMS and UTI. . Patient reportedly has NO PCP. No visitors today. Daughter has not called. Per ER notes the ER transplant case manager spoke with the daughter briefly. CM telephoned Balbina Garzon, daughter. No answer. Left vm message requesting call regarding services at home. Cm to follow to complete assessment, determine needs and plan of care.
[2016-08-11 19:00] VITALS: BP 141/67
--- NOTE | 2016-08-11 22:09 | NUR ---
REC'D PATIENT LYING IN BED ALSEEP. NO DISTRESS NOTED. ALERT AND ORIENTED X2. DENIED PAIN AT THIS TIME. DENIED FURTHER NEEDS AT THIS TIME. WILL ADMIN PM/AM MEDS PRESCRIBED. WILL CONT TO MONITOR. INSTRUCTED TO CALL IF NEEDED ANYTHING BED LOW, LOCKED, CALL LIGHT IN REACH, ALARM ON.
--- NOTE | 2016-08-12 01:55 | NUR ---
PATIENT IS RESTING IN BED. NO DISTRESS NOTED. WILL CONT TO MONITOR. BED LOW, LOCKED, CALL LIGHT IN REACH.
--- NOTE | 2016-08-12 02:00 | NUR ---
PT IN BED WITH NO DISTRESS. RESPIRATIONS EVEN AND UNLABORED. SIDE RAILS X 2. BED LOW. CALL LIGHT IN REACH.
[2016-08-12 04:00] VITALS: BP 135/53
[2016-08-12 07:09] LABS: BASOPHILS 0.1 % (0-2); EOSINOPHILS 0.7 % (0-7); HEMATOCRIT 38.7 % (36.0-48.0); HEMOGLOBIN 12.7 g/dL (12-16); IMMATURE GRANULOCYTES 0.1 % (0-5); LYMPHOCYTES 17.1 % (15-50); MCH 31.7 pg (26.0-34.0); MCHC 32.8 g/dL (31.0-37.0); MCV 96.5 fL (80.0-100.0); MEAN PLATELET VOLUME 10.6 fL (7.4-10.4); MONOCYTES 10.3 % (2-11); NEUTROPHILS 71.7 % (40-80); PLATELET COUNT 142 10x3/uL (130-400); RBC 4.01 10x6/uL (4.00-5.40); RDW 15.5 % (11.5-14.5); WBC 8.2 10x3/uL (4.8-10.8)
[2016-08-12 07:47] LABS: ALBUMIN 2.1 g/dL (3.4-5.0); ANION GAP 9.7 mmol/L (8-16); BILIRUBIN - TOTAL 0.9 mg/dL (0.2-1.3); CALCIUM 8.4 mg/dL (8.5-10.1); CARBON DIOXIDE 31.7 mmol/L (21.0-32.0); CREATININE - SERUM 0.9 mg/dL (0.6-1.3); POTASSIUM - SERUM 4.4 mmol/L (3.5-5.1); PROTEIN - SERUM 5.9 g/dL (6.4-8.2)
--- NOTE | 2016-08-12 07:50 | NUR ---
PT [place] PT DENIES NEEDS AT THIS TIME IV TO LEFT WRIST PATENT AND INTACT SRX2 BED AT LOWEST SETTING CALL LIGHT WITHIN REACH WILL CONTINUE TO MONITOR
[2016-08-12 08:54] VITALS: BP 126/59
[2016-08-12 19:00] VITALS: BP 140/53
--- NOTE | 2016-08-12 19:30 | NUR ---
AROUSES EASILY TO VERBAL STIMULI. ALERT ORIENETED X 2. PATIENT IS COUNCIL. IV INTACTT TO LEFT FOREARM WITHOUT REDNESS OR EDEMA NOTED. ALVAREZ PATENT AND DRAINING DEDE URINE. BED ALARM ON. CL IN REACH
--- NOTE | 2016-08-13 02:00 | NUR ---
PT IN BED WITH NO DISTRESS. RESPIRATIONS EVEN AND UNLABORED. SIDE RAILS X 2. BED LOW. CALL LIGHT IN REACH.
[2016-08-13 04:00] VITALS: BP 124/55
--- NOTE | 2016-08-13 05:05 | NUR ---
AWAKE WITH NO COMPLAINTS VOICE. CL IN REACH
[2016-08-13 07:22] LABS: BASOPHILS 0.1 % (0-2); EOSINOPHILS 1.6 % (0-7); HEMATOCRIT 36.5 % (36.0-48.0); HEMOGLOBIN 12.1 g/dL (12-16); IMMATURE GRANULOCYTES 0.2 % (0-5); LYMPHOCYTES 16.6 % (15-50); MCH 31.8 pg (26.0-34.0); MCHC 33.2 g/dL (31.0-37.0); MCV 95.8 fL (80.0-100.0); MEAN PLATELET VOLUME 10.5 fL (7.4-10.4); MONOCYTES 11.8 % (2-11); NEUTROPHILS 69.7 % (40-80); PLATELET COUNT 149 10x3/uL (130-400); RBC 3.81 10x6/uL (4.00-5.40); RDW 15.6 % (11.5-14.5); WBC 9.2 10x3/uL (4.8-10.8)
[2016-08-13 07:38] LABS: ALBUMIN 2.1 g/dL (3.4-5.0); ANION GAP 7.4 mmol/L (8-16); BILIRUBIN - TOTAL 0.96 mg/dL (0.2-1.3); CALCIUM 8.6 mg/dL (8.5-10.1); CARBON DIOXIDE 32.8 mmol/L (21.0-32.0); CREATININE - SERUM 0.8 mg/dL (0.6-1.3); POTASSIUM - SERUM 4.2 mmol/L (3.5-5.1); PROTEIN - SERUM 5.9 g/dL (6.4-8.2)
[2016-08-13 09:00] VITALS: BP 156/65
[2016-08-13 12:31] VITALS: BP 130/53
--- NOTE | 2016-08-13 16:23 | NUR ---
Rehab Prescreening Consult recieved and the chart was reviewed. She has not worked with PT other than bed mobility, and continues to have a decreased mental status. Rehab will follow her to see whether she can participate in 3 hrs of therapy daily 5 days a week. Lisa Edwards RN Clinical Liaison, Rehab
[2016-08-13 17:11] VITALS: BP 138/70
[2016-08-13 20:00] VITALS: BP 127/61
--- NOTE | 2016-08-13 21:34 | NUR ---
AWAKE,ALERT WITH CONFUSION NOTED. IV INFUSING TO LEFT HAND WITHOUT REDNESS OR EDEMA NOTED. ALVAREZ PATENT AND DRAINING DEDE URINE. CL IN REACH..
[2016-08-14] VITALS: BP 122/60
--- NOTE | 2016-08-14 02:00 | NUR ---
PT IN BED WITH NO DISTRESS. RESPIRATIONS EVEN AND UNLABORED. SIDE RAILS X 2. BED LOW. CALL LIGHT IN REACH.
--- NOTE | 2016-08-14 02:10 | NUR ---
POSITIONED FOR COMFORT. NO DISTRESS NOTED.
[2016-08-14 04:00] VITALS: BP 143/65
[2016-08-14 05:34] LABS: BASOPHILS 0.3 % (0-2); EOSINOPHILS 1.9 % (0-7); HEMATOCRIT 33.6 % (36.0-48.0); HEMOGLOBIN 10.9 g/dL (12-16); IMMATURE GRANULOCYTES 0.3 % (0-5); LYMPHOCYTES 19.1 % (15-50); MCH 31.5 pg (26.0-34.0); MCHC 32.4 g/dL (31.0-37.0); MCV 97.1 fL (80.0-100.0); MEAN PLATELET VOLUME 10.3 fL (7.4-10.4); MONOCYTES 10.2 % (2-11); NEUTROPHILS 68.2 % (40-80); PLATELET COUNT 176 10x3/uL (130-400); RBC 3.46 10x6/uL (4.00-5.40); RDW 15.5 % (11.5-14.5); WBC 7.7 10x3/uL (4.8-10.8)
[2016-08-14 06:02] LABS: ALKALINE PHOSPHATASE 51 U/L (46-116); ALT (SGPT) 14 U/L (10-68); CALC OSMOLALITY 282 mosm/kg (275-300); CARBON DIOXIDE 29.9 mmol/L (21.0-32.0); CHLORIDE - SERUM 105 mmol/L (98-107); CREATININE - SERUM 0.7 mg/dL (0.6-1.3); GLUCOSE 159 mg/dL (74-106); POTASSIUM - SERUM 3.6 mmol/L (3.5-5.1); PROTEIN - SERUM 5.1 g/dL (6.4-8.2); SODIUM 140 mmol/L (136-145); UREA NITROGEN 14 mg/dL (7-18); eGFR NON AFRICAN AMERICAN 83 mL/min (90-120)
--- NOTE | 2016-08-14 08:30 | NUR ---
PATIENT IN CHAIR WITH EYES CLOSED RESTING QUIETLY. IV INTACT. NO COMPLAINTS OR SIGNS OF DISTRESS. CALL LIGHT WITHIN REACH.
[2016-08-14 09:27] VITALS: BP 143/64
[2016-08-14 13:20] VITALS: BP 152/75
--- NOTE | 2016-08-14 14:55 | NUR ---
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 PATIENTS DAUGHTER STATED HER MOTHER LIVES WITH HER AND WAS WALKING AND GOING TO EAT WITH HER AND NOW SHE HAS CHANGED GREATLY. DAUGHTER STATED SHE WAS WALKING WITHOUT A WALKER EVEN THOUGH SHE HAS ONE BEFORE THIS ADMIT. PATIENT ALSO HAS A WHEELCHAIR, SHOWER CHAIR BUILT IN, BS COMMODE, AND GLUCOMETER (DOES NOT CHECK). PATIENT DOES NOT HAVE A PCP BUT IS GOING TO TRY TO GO TO [facility]. PATIENTS PHARMACY IS [address] CM WILL CONTINUE TO FOLLOW PATIENT WITH D/C NEEDS AND PLANS. PCP NONE [facility] ON [address] [phone] RICARDO (DAUGHTER) [phone] Transformation Architect: Teresita Pope How many steps to enter\exit or inside your home? 2 0 * PCP NONE 0 * Pharmacy [facility] ON [address] 0 * Preadmission Environment Home with Family 0 * ADLs Independent 0 * Equipment Bedside Commode Glucometer Walker Wheelchair 0 * List name and contact numbers for known caregivers / representatives who currently or will assist patient after discharge: RICARDO (DAUGHTER) [phone] 0 * Community resources currently utilized None 0 * Additional services required to return to the preadmission environment? Yes 0 * Can the patient safely return to the preadmission environment? Yes 0 * Has this patient been hospitalized within the prior 30 days at any hospital? No 0 Grand Total: 0
--- NOTE | 2016-08-14 15:01 | NUR ---
NUTRITION MONITORING & EVAL CHART REVIEWED. PT TOLERATING REG PUREED DIET WITH HONEY THICK LIQUIDS. 100% INTAKE BREAKFAST, 25% LUNCH. REQUIRES FEEDING ASSIST. RD FOLLOWING
--- NOTE | 2016-08-14 15:40 | NUR ---
CM REASSESSMENT NOTE: REFERRAL HAS BEEN SENT TO [facility] ([facility]).
[2016-08-14 16:40] VITALS: BP 147/76
--- NOTE | 2016-08-14 17:00 | NUR ---
OT NOTE: PT COMPLETED GROOMING AND HYGIENE TASK WITH MIN A. PT COMPLETED BED MOB WITH MOD A. PT COMPLETED BUE PROM EXS FOR INCREASE FUNCTION AND DECREASE SKIN BREAKDOWN. THANK YOU, JUNIOR TRINIDAD/Cortez
--- NOTE | 2016-08-14 18:50 | NUR ---
PATIENT IN BED WITH NO COMPLAINTS AT THIS TIME. IV INTACT. CALL LIGHT WITHIN REACH.
[2016-08-14 20:00] VITALS: BP 136/62
--- NOTE | 2016-08-14 20:00 | NUR ---
AROUSES EASILY TO VERBAL STIMULI. PATIENT IS BILL [place]. ALERT WITH CONFUSION NOTED. IV INFUSING WITHOUT REDNESS OR EDEMA NOTED. ALVAREZ PATENT AND DRAINING DEDE URINE. EDEMA NOTED TO EXTRIMITIES. CL IN REACH.
--- NOTE | 2016-08-14 23:32 | NUR ---
RN NOTE: PT RESTING IN SUPINE POSITION WITH EYES CLOSED AND EASY RESPIRATIONS. IV IN LEFT HAND PATENT WITH LR INFUSING AT 50 ML / HR. WILL CONTINUE TO MONITOR FOR NEEDS. CALL LIGHT WITHIN REACH.
--- NOTE | 2016-08-15 01:24 | NUR ---
POSITIONED FOR COMFORT. NO DISTRESS NOTED.
[2016-08-15 04:00] VITALS: BP 169/73
--- NOTE | 2016-08-15 05:30 | NUR ---
POSITIONED FOR COMFORT. NO COMPLAINTS VOICED
[2016-08-15 05:59] LABS: BASOPHILS 0.1 % (0-2); EOSINOPHILS 1.4 % (0-7); HEMATOCRIT 33.9 % (36.0-48.0); HEMOGLOBIN 11.1 g/dL (12-16); IMMATURE GRANULOCYTES 0.1 % (0-5); LYMPHOCYTES 16.8 % (15-50); MCH 31.4 pg (26.0-34.0); MCHC 32.7 g/dL (31.0-37.0); MEAN PLATELET VOLUME 10.1 fL (7.4-10.4); MONOCYTES 9.2 % (2-11); NEUTROPHILS 72.4 % (40-80); PLATELET COUNT 199 10x3/uL (130-400); RBC 3.53 10x6/uL (4.00-5.40); RDW 15.2 % (11.5-14.5); WBC 7.1 10x3/uL (4.8-10.8)
[2016-08-15 06:16] LABS: ANION GAP 8.9 mmol/L (8-16); BILIRUBIN - TOTAL 0.8 mg/dL (0.2-1.3); CALCIUM 8.1 mg/dL (8.5-10.1); CARBON DIOXIDE 29.8 mmol/L (21.0-32.0); CREATININE - SERUM 0.8 mg/dL (0.6-1.3); POTASSIUM - SERUM 3.7 mmol/L (3.5-5.1); PROTEIN - SERUM 5.8 g/dL (6.4-8.2)
--- NOTE | 2016-08-15 07:00 | NUR ---
REPORT RECIEVED ASSUMED CARE. PATIENT IN BED WITH IV INTACT. NO COMPLAINTS AT THIS TIME. CALL LIGHT WITHIN REACH.
[2016-08-15 07:47] LABS: AMORPHOUS SEDIMENT <1+ /lpf (NONE SEEN); APPEARANCE CLOUDY (CLEAR); BACTERIA MODERATE /hpf (NONE SEEN); BILIRUBIN NEGATIVE (NEGATIVE); COLOR YELLOW (YELLOW); EPITHELIAL CELLS OCC /hpf (0-5); GLUCOSE NEGATIVE (NEGATIVE); KETONE SMALL mg/dL (NEGATIVE); LEUKOCYTE ESTERASE 1+ (NEGATIVE); MUCUS <1+ /lpf (NONE SEEN); NITRITE NEGATIVE (NEGATIVE); PROTEIN NEGATIVE (NEGATIVE); RED CELLS - URINE 0-5 /hpf (0-5); SPECIFIC GRAVITY 1.005 (1.005-1.020); UROBILINOGEN NORMAL (NORMAL)
[2016-08-15 08:44] VITALS: BP 160/61
--- NOTE | 2016-08-15 10:00 | NUR ---
PATIENT TURNED TO SIDE WITH SMALL AMOUNT OF PAIN. IV AND ALVAREZ INTACT. CALL LIGHT WITHIN REACH.
--- NOTE | 2016-08-15 11:32 | NUR ---
CHAD SPOKE WITH LANDON AT [facility] AND THEY HAVE ACCEPTED PATIENT. PATIENT WILL DISCHARGE TODAY BY AMBULANCE TO A SKILLED BED. PATIENTS DAUGHTER HAS BEEN NOTIFIED.
[2016-08-15] MEDS ORDERED: ELIQUIS5 MG PO (11:51)
[2016-08-15] MEDS ORDERED: MACROBID100 MG PO (11:52)
--- NOTE | 2016-08-15 12:19 | NUR ---
OT NOTE: PT IS EASILY AGITATED WHEN REPOSITIONED OR ASKED TO MOVE L UE/LE. A/PROM TO L HAND..PT SCREAMS IN PAIN WHEN MOVED. AROM EXS WITH R UE. ATTEMPTED GROOMING/HYGIENE BUT PT CONT TO REPORT THAT SHE FELT TOO BAD TO DO ANYTHING. PRACTICED BED MOB WITH MAX ASSIST INCLUDING ROLLING SIDE TO SIDE AND SUPINE TO SIT. REPOSITIONED BACK IN BED
[2016-08-15 12:40] VITALS: BP 152/59
--- NOTE | 2016-08-15 13:10 | NUR ---
PATIENT IN BED WITH NO COMPLAINTS AT THIS TIME. NO SIGNS OF DISTRESS. CALL LIGHT WITHIN REACH.
--- NOTE | 2016-08-15 15:33 | NUR ---
CALLED REPORT TO CHAPARRO DANIEL NURSE. PATIENT TO LEAVE BY AMBULANCE TO GO TO REHAB. IV REMOVED WITH CATH TIP INTACT. NO COMPLAINTS. DISCHARGE GIVEN TO PATIENT. VERBALIZED UNDERSTANDING. UNABLE TO SIGN. CALL LIGHT WITHIN REACH.
== END 2016-08-15 16:59 | DRG 689 ==
LOC: D.ER 09:04 → D.MS 15:30
PROVIDERS: Emergency Medicine; ADMIT Family Medicine
DX: N39.0 Urinary tract infection, site not specified (principal); G93.49 Other encephalopathy; R53.2 Functional quadriplegia; F02.81 Dementia in other diseases classified elsewhere, unspecified severity, with behavioral disturbance; I82.411 Acute embolism and thrombosis of right femoral vein; I82.431 Acute embolism and thrombosis of right popliteal vein; E86.0 Dehydration; G30.9 Alzheimer's disease, unspecified; B96.20 Unspecified Escherichia coli [E. coli] as the cause of diseases classified elsewhere; H91.90 Unspecified hearing loss, unspecified ear

== ENCOUNTER 2016-09-02 16:25 | Emergency (ER) | payer MEDICARE, OTHER ==
[2016-08-09 13:55] VITALS: BMI 26.1
[~2016-09-02 16:25] MED LIST changes: +ELIQUIS5 MG PO; +MACROBID100 MG PO
== END 2016-09-02 19:35 | disposition home or self-care (01) ==
LOC: D.ER 16:25
DX: S00.81XA Abrasion of other part of head, initial encounter (principal); W19.XXXA Unspecified fall, initial encounter; Y93.89 Activity, other specified; Y92.89 Other specified places as the place of occurrence of the external cause; S09.90XA Unspecified injury of head, initial encounter; S01.01XA Laceration without foreign body of scalp, initial encounter; G30.9 Alzheimer's disease, unspecified; F02.80 Dementia in other diseases classified elsewhere, unspecified severity, without behavioral disturbance, psychotic disturbance, mood disturbance, and anxiety; E03.9 Hypothyroidism, unspecified; E11.9 Type 2 diabetes mellitus without complications; I10 Essential (primary) hypertension; K21.9 Gastro-esophageal reflux disease without esophagitis; F41.9 Anxiety disorder, unspecified; Z86.73 Personal history of transient ischemic attack (TIA), and cerebral infarction without residual deficits

== ENCOUNTER → 2016-10-17 13:56 | Outpatient (CLI) | payer MEDICARE, OTHER ==
[2016-08-09 13:55] VITALS: BMI 26.1
== END | disposition home or self-care (01) ==
LOC: D.CT 13:56
DX: R41.82 Altered mental status, unspecified (principal); R51 Headache; Z91.81 History of falling

== ENCOUNTER 2016-10-25 14:23 | Emergency (ER) | payer MEDICARE, OTHER | END 2016-10-25 17:00 | disposition home or self-care (01) | LOC: D.ER 14:23 | DX: S09.90XA Unspecified injury of head, initial encounter (principal); W19.XXXA Unspecified fall, initial encounter; Y93.89 Activity, other specified; Y92.129 Unspecified place in nursing home as the place of occurrence of the external cause; S00.211A Abrasion of right eyelid and periocular area, initial encounter; F03.90 Unspecified dementia, unspecified severity, without behavioral disturbance, psychotic disturbance, mood disturbance, and anxiety ==

== ENCOUNTER 2016-10-27 11:22 | Inpatient (IN) | payer MEDICARE, OTHER ==
--- NOTE | 2016-10-27 13:04 | NUR ---
HALDOL 2 MG IM GIVEN IN LEFT DELTOID FOR SEVERE AGITATION.
[2016-10-27 14:22] LABS: BASOPHILS 0.5 % (0-2); EOSINOPHILS 1.3 % (0-7); HEMATOCRIT 39.8 % (36.0-48.0); HEMOGLOBIN 13.3 g/dL (12-16); LYMPHOCYTES 40.3 % (15-50); MCHC 33.4 g/dL (31.0-37.0); MCV 95.7 fL (80.0-100.0); MEAN PLATELET VOLUME 11.2 fL (7.4-10.4); NEUTROPHILS 46.9 % (40-80); RBC 4.16 10x6/uL (4.00-5.40); RDW 13.4 % (11.5-14.5); WBC 6.2 10x3/uL (4.8-10.8)
[2016-10-27 14:23] LABS: PLATELET COUNT 112 10x3/uL (130-400)
[2016-10-27 14:48] LABS: HEMOGLOBIN A1C 7.6 % (4.8-6.0)
[2016-10-27] MEDS ORDERED: VIC-FORTE CAPSUL1 MG PO (15:10)
[2016-10-27] MEDS ORDERED: ELIQUIS5 MG PO (15:11)
[2016-10-27] MEDS ORDERED: ATIVAN0.5 MG PO (15:14)
[2016-10-27] MEDS ORDERED: NYSTATIN1 PWD TOPICAL (15:16)
[2016-10-27 15:17] LABS: ALBUMIN 3.3 g/dL (3.4-5.0); BILIRUBIN - TOTAL 0.57 mg/dL (0.2-1.3); CALCIUM 8.5 mg/dL (8.5-10.1); CARBON DIOXIDE 26.7 mmol/L (21.0-32.0); CHOL - HDL RATIO 2.9 ratio (2.3-4.1); CREATININE - SERUM 0.8 mg/dL (0.6-1.3); LDL-HDL RATIO 1.5 ratio (1.5-3.5); POTASSIUM - SERUM 3.7 mmol/L (3.5-5.1); PROTEIN - SERUM 6.7 g/dL (6.4-8.2); THYROID STIMULATING HORMONE 2.49 uIU/mL (0.36-3.74)
[2016-10-27] MEDS ORDERED: ACETAMINOPHEN325 MG PO (15:18)
[2016-10-27] MEDS ORDERED: SEROQUEL25 MG PO (15:19)
[2016-10-27] MEDS ORDERED: ZOLOFT50 MG PO (15:25)
--- NOTE | 2016-10-27 15:49 | NUR ---
PT ADMITTED FROM [facility] FOR COMBATIVENESS AND THROWING SELF IN FLOOR. PT WAS HITTING, SPITTING, AND BITING STAFF. DAUGHTER CALLED AND GAVE VERBAL CONSENT FOR ADMIT AND CODE STATUS ADDRESSED. PT IS A DNR. CODE WORD IS "POOEY". PT HAS BEEN COMBATIVE WITH ALF STAFF AND REQUIRED HALDOL FOR HER ANXIETY AND PSYCHOTIC BEHAVIOR. SHE HAS ATTEMPTED TO BITE AND HIT STAFF. PT IS 1:1 FOR SAFETY. FALL PRECAUTIONS INITIATED. LEON ALARM IN PLACE.
[2016-10-27 19:31] VITALS: BP 122/57
[2016-10-27 19:57] VITALS: BP 136/65; BMI 25.0
--- NOTE | 2016-10-27 23:12 | NUR ---
RECIEVED IN DINING ROOM. KEEPING TO SELF READING. CALM AND COOPERATIVE WITH CARE AND ASSESSMENT. ALERT AND ORIENTED. ENCOURAGED TO EXPRESS NEEDS. RESTING IN BED WITH EYES CLOSED AT THIS TIME. CONTINUE PLAN OF CARE.
--- NOTE | 2016-10-27 23:16 | NUR ---
RECIEVED IN DAY ROOM. SITTING IN RECLINER BY SELF. NOT SOCIALIZING. CALM AND COOPERATIVE WITH CARE AND ASSESSMENT. NO SINGS OF AGGRESSION. REDIRECT AND REORIENT NEEDED. RESTING IN BED WITH EYES CLOSED. CONTINUE PLAN OF CARE.
[2016-10-28 07:25] LABS: RAPID PLASMA REAGIN Non Reactive (Non Reactive); VITAMIN D 25 HYDROXY 18.5 ng/mL (30.0-100.0)
[2016-10-28 08:17] LABS: FOLATE (FOLIC ACID) - SERUM >20.0 ng/mL (>3.0)
[2016-10-28 09:21] VITALS: BP 132/71
[2016-10-28 10:00] VITALS: BMI 24.8
--- NOTE | 2016-10-28 14:00 | NUR ---
B) ALERT AND ORIENTED TO SELF ONLY. CALM AND COOPERATIVE WITH ASSESSMENT AND CARE. SHOWED SOME AGGRESSION AND ARGUEMENTATIVE WITH STAFF LATER IN SHIFT. I) ADMINISTERED PRESCRIBED MEDICATIONS. REDIRECT AND REORIENT NEEDED. R) COMPLIANT WITH MEDICATIONS . VSS. ASSESSMENT COMMPLETED. P) CONTINUE PLAN OF CARE.
[2016-10-28 20:00] VITALS: BP 162/123
--- NOTE | 2016-10-28 20:31 | NUR ---
RECEIVED IN DAYROOM. SITTING IN RECLINER WITH PEERS BY HER SIDE. NOT SOCIALIZING. CALM AND COOPERATIVE WITH CARE AND ASSESSMENTS. NO SIGNS OF AGGRESSION. REDIRECT AND REORIENT NEEDED. CONTINUES TO REST QUIETLY IN RECLINER. CONTINUE PLAN OF CARE
[2016-10-29 09:23] VITALS: BP 141/80
--- NOTE | 2016-10-29 13:09 | NUR ---
B) PATIENT IS AWAKE AND ALERT, SHE IS CONFUSED, KNOWS HER NAME ONLY, DOES NOT KNOW PLACE, TIME OR SITUATION. PATIENT DID AMBULATE MINIMALLY WITH A WALKER WITH PT THIS AM, BUT SHE DID NOT LIKE IT. I) PROVIDE PRESCRIBED MEDS. R) PATIENT IS COMPLIANT WITH MEDS TODAY, SHE DID HIT AT ACTIVITY THEREAPIST, BUT SHE WAS REDIRECTED AND SHE DID LISTEN. P) CONTINUE POC.
[2016-10-29 20:00] VITALS: BP 139/59
--- NOTE | 2016-10-30 02:26 | NUR ---
B) Patient is napping in day room, calm and cooperative with care and assessment, oriented to self only, I) Administered schedlued medications, monitored for falls and safety, R) Medication compliant, resting now quietly in bed, P) Continue plan of care.
[2016-10-30 10:41] VITALS: BP 145/78
--- NOTE | 2016-10-30 12:10 | NUR ---
B) PATIENT IS NEW [place], IT IS DIFFICULT TO COMMUNICATE WITH HER, BUT THIS AM, SHE DID TAKE HER MEDICATION CRUSHED IN A CHOCOLATE MILK SHAKE. SHE IS ALERT, BUT SHE HAS POOR SHORT TERM MEMORY RECALL. PATIENT CAN WALK WITH A WALKER AT TIMES. I) PROVIDE PRESCRIBED MEDS. R) PATIENT IS COMPLIANT WITH MEDS. P) CONTINUE POC.
--- NOTE | 2016-10-30 13:17 | NUR ---
RD follow up Chart reviewed Pt with poor intake on regular diet, noted to consume meds in chocolate shake. noted to be confused. On nystatin secondary to thrush. Decrease intake likley mulitfactorial with dx and thrush. no new wts at this time. No skin issues noted or a BM noted. REC: Offer suppelments at meals MVI with mineral daily RD to follow
--- NOTE | 2016-10-30 16:24 | NUR ---
PATIENTS ASSISTED CALLED AND MADE THE REQUEST THAT WHEN THE IS ABLE TO GET HER STRAIGHTENED OUT AND IF ANTIPSYCHOTICS ARE ORDERED THAT HE PLEASE PROVIDE A DIAGNOSIS SO THAT THE PATIENT MAY STAY ON THE MEDICATION. LET HER KNOW THAT I WILL PASS THE MESSAGE ON.
[2016-10-30 20:02] VITALS: BP 142/68
--- NOTE | 2016-10-31 03:24 | NUR ---
B) Patient is alert and oriented to self, sitting at table with MHT, calm and cooperative with care, I) Administered scheduled medication crushed, monitored for safety. R) Medication compliant, calm and quiet P) Continue plan of care.
--- NOTE | 2016-10-31 07:48 | NUR ---
OBTAINED URINE BY IN AND OUT CATH, WILL TAKE TO LAB.
[2016-10-31 08:31] VITALS: BP 153/69
[2016-10-31 08:32] LABS: APPEARANCE HAZY (CLEAR); COLOR DK YELLOW (YELLOW); SPECIFIC GRAVITY 1.025 (1.005-1.020)
[2016-10-31 08:33] LABS: BILIRUBIN NEGATIVE (NEGATIVE); GLUCOSE NEGATIVE (NEGATIVE); KETONE NEGATIVE (NEGATIVE); NITRITE POSITIVE (NEGATIVE); PROTEIN NEGATIVE (NEGATIVE); UROBILINOGEN NORMAL (NORMAL)
[2016-10-31 08:34] LABS: WHITE CELLS - URINE 0-5 /hpf (0-5)
[2016-10-31 08:35] LABS: AMORPHOUS SEDIMENT <1+ /lpf (NONE SEEN); BACTERIA MANY /hpf (NONE SEEN); EPITHELIAL CELLS OCC /hpf (0-5); MUCUS <1+ /lpf (NONE SEEN); RED CELLS - URINE 0-5 /hpf (0-5)
--- NOTE | 2016-10-31 12:43 | NUR ---
B) PATIENT IS AWAKE AND ALERT AND SHE IS ABLE TO MAKE NEEDS KNOWN, SHE HAS BEEN SELF PROPELLING IN THE DAY ROOM AND DINING ROOM, SHE IS IMPARED IN HER THOUGHT PROCESS AND SHE DOES ROCK BACK AND FORTH AND CAN NOT COMPREHEND THAT SHE IS RUNNING OVER SOMEONE. PATIENT IS [place] AND IT IS DIFFICULT TO GET HER TO UNDERSTAND. THIS MORNING SHE IS MORE PLEASANT, BUT SHE IS NONSENSICAL SHE SAID "I NEED SOME MORE SOFTENER FOR THE REFRIGERATOR" IT TOOK ME ABOUT FIFTEEN MINUTES TO FIGURE IT OUT, WHAT SHE MEANT WAS SHE NEEDED MORE SYRUP FOR HER PANCAKES TO SOFTEN THEM UP. I) PROVIDE PRESCRIBED MEDS. R) PATIENT IS COMPLIANT WITH MEDS CRUSHED IN A MILK SHAKE. P) CONTINUE POC.
[2016-10-31 19:30] VITALS: BP 149/74
--- NOTE | 2016-11-01 03:45 | NUR ---
B) patient is napping in the day room, oriented to self, yelled out who is in my house a few times, difficult to get her attention at times. I) Administered scheduled medications, redirected as needed, monitored for safety, R) Medication compliant, P) Continue plan of care.
[2016-11-01 08:00] VITALS: BP 106/67
--- NOTE | 2016-11-01 18:29 | NUR ---
ORIENTED TO SELF AND MONTH.MEDS CRUSHED AND GIVEN IN VANILLA PUDDING.VERY HARD OF HEARING,POOR EYE CONTACT AND DIFFICULT TO COMMUNICATE WITH HER.NO COMBATIVENESS OBSERVED.WILL CONTINUE WITH PLAN OF CARE,MONITOR FOR CHANGES AND SAFETY.REST IN RECLINER WITH LEON ALARM ON.
[2016-11-01 19:30] VITALS: BP 150/63
--- NOTE | 2016-11-02 02:15 | NUR ---
B) Patient is alert or napping , oriented to self, [place], difficult to get her attention at times, difficult to communicate with her. I) Administered scheduled medications, monitored for falls and safety, redirected as needed, R) Medications compliant, difficult and yells with zechariah care, P) Continue plan of care.
[2016-11-02 07:47] VITALS: BP 182/96
[2016-11-02 12:30] VITALS: BMI 22.1
--- NOTE | 2016-11-02 12:31 | NUR ---
PT CONTINUES TO YELL OUT AND BE VERBALLY AGGRESSIVE TOWARDS STAFF. UNABLE TO CALM PT AFTER MULTIPLE ATTEMPTS. MEDICATIONS GIVEN ORDERED. FALL PRECAUTIONS MAINTAINED. WILL CONTINUE TO MONITOR AND CONTINUE WITH PLAN OF CARE.
--- NOTE | 2016-11-02 12:56 | NUR ---
YELLING OUT AND VERBALLY ABUSIVE,ATIVAN 0.5MG IM GIVEN.
--- NOTE | 2016-11-02 13:03 | NUR ---
PT CONTINUES TO YELL AND SCREAM WHICH IS UPSETTING THE OTHER PTS. PT WAS REMOVED FROM DAYROOM AND AWAY FROM THE OTHER PTS.
[2016-11-02 19:30] VITALS: BP 143/74
--- NOTE | 2016-11-02 20:39 | NUR ---
RECEIVED IN DAYROOM. LAYING IN A RECLINING CHAIR. CONFUSED. CALM AND COOPERATIVE WITH CARE AND ASSESSMENTS. NO SIGNS OF AGGRESSION. REDIRECT AND REORIENT NEEDED. CONTINUES TO SIT QUIETLY IN RECLINER. CONTINUE PLAN OF CARE
[2016-11-03 08:41] VITALS: BP 144/76
--- NOTE | 2016-11-03 13:13 | NUR ---
Alert and oriented to name only, Uncooperative with care and attempts to obtain FSBS, not compliant with medications, atttempted to spit and bite staff with administration of IM antibiotic. Attempts to calm patient, screams and yells. Settled down on her own with no incident. Refused meals, attempts to offer supplement drink with patient refusing. Safety maintained. Continue plan of care.
--- NOTE | 2016-11-03 20:16 | NUR ---
RECEIVED IN DAYROOM. LAYING IN RECLINING CHAIR. NOT SOCIALIZING WITH STAFF OR PEERS. CALM AND COOPERATIVE WITH CARE AND ASSESSMENTS. CONFUSED. ENCOURAGE TO EXPRESS NEEDS. CONTINUES TO REST ING RECLINER. CONTINUE PLAN OF CARE
--- NOTE | 2016-11-04 03:31 | PN ---
PATIENT:ROSA GARCIA MEDICAL RECORD: [id number] LOCATION:JENNY Ngeron ADMISSION DATE: 10/27/16 PROGRESS NOTE DATE OF SERVICE: 10/30/2016 SUBJECTIVE: No new complaint. OBJECTIVE: The patient's behavior has improved marginally. Staff is able to get her to take medications when they are placed in chocolate milk. Depakote level from this morning is 44.2, which is quite close to the therapeutic range. On exam, mood is slightly anxious. Affect is shallow and childlike. Speech is tangential. Content of thought is negative for overt psychosis. Sensorium is unchanged. ASSESSMENT: No change in diagnosis. PLAN: 1. Maintain current medication. 2. Continue supportive therapy. TRANSINT:[id number] Voice Confirmation ID: [id number] DOCUMENT ID: [id number] NORRIS NEWBY III, MD at 0331 CC: [id number] DICTATION DATE: 10/30/16 1217 CRYSTAL GROWER: 10/30/16 1234 ADM IN [place] [id number] [place] [id number]
--- NOTE | 2016-11-04 03:31 | PN ---
PATIENT:ROSA GARCIA MEDICAL RECORD: [id number] LOCATION:JENNY Negron ADMISSION DATE: 10/27/16 PROGRESS NOTE DATE OF SERVICE: 11/03/2016 SUBJECTIVE: No new complaint. OBJECTIVE: Staff reports the patient has been inconsistent on compliance with her medications. She did receive a p.r.n. of Ativan yesterday for agitation. She does have E. coli in her urine and this is being treated with antibiotics. On exam, mood is euthymic. Affect is constricted. Speech minimal. Content of thought focuses only on somatic concerns. Sensorium shows no change. ASSESSMENT: No change in diagnosis. PLAN: 1. Maintain current medications. 2. Continue supportive therapy. TRANSINT:[id number] Voice Confirmation ID: [id number] DOCUMENT ID: [id number] NORRIS NEWBY III, MD at 0331 CC: [id number] DICTATION DATE: 11/03/16 1150 BEEF BONER: 11/03/16 1206 ADM IN [place] [id number] [place] [id number]
--- NOTE | 2016-11-04 03:31 | PN ---
PATIENT:ROSA GARCIA MEDICAL RECORD: [id number] LOCATION:JENNY Negron ADMISSION DATE: 10/27/16 PROGRESS NOTE DATE OF SERVICE: 10/29/2016 SUBJECTIVE: No new complaint. OBJECTIVE: The patient has tended to be noncompliant. She is irritable, but she is not yelling and not as combative as she had been. On exam, mood is irritable. Affect very brittle and shallow. Speech is tangential. Content of thought is negative for overt psychosis. Sensorium shows no change. ASSESSMENT: No change in diagnosis. PLAN: 1. Maintain current medication. 2. Continue supportive therapy. TRANSINT:[id number] Voice Confirmation ID: [id number] DOCUMENT ID: [id number] NORRIS NEWBY III, MD at 0331 CC: [id number] DICTATION DATE: 10/29/16 1143 CHASER APPRENTICE: 10/29/16 1218 ADM IN [place] [id number] [place] [address]
--- NOTE | 2016-11-04 03:31 | PSY ---
PATIENT NAME:ROSA GARCIA MEDICAL RECORD: [id number] : [birth year] LOCATION:Steve[facility]AGMAR [id number] ADMISSION DATE: 10/27/16 ACCOUNT: [id number] PSYCHIATRIC EVALUATION DATE OF EVALUATION: 10/28/16 Initial Psychiatric Workup IDENTIFYING DATA: This is the second [facility] admission for this 89-year-old white female. HISTORY OF PRESENT ILLNESS: This patient was previously admitted to [facility] in July of this year. She has an established diagnosis of Alzheimer dementia. On her first admission, she had initially been dropped off at the Emergency Department by her daughter who then left. The patient was in severely ill state and obviously had not been cared for well at all. She was admitted to the medical floor initially and then transferred to [facility] at a later time. Adult protective services has been notified about the case in the past, but subsequently has withdrawn from the case. After the initial hospitalization at [facility], the patient went to private care per her daughter's wishes. At a later time, she was readmitted and then placed in [facility] for rehabilitation. She is now admitted back to [facility] because of extreme agitation and combativeness. The patient had been taking Risperdal and Depakote with good behavioral control, but unfortunately, these medications have been discontinued. As a result, the patient is quite brittle. Following admission, the patient required both p.r.n. Haldol and Ativan to control her agitated and combative behavior. PAST MEDICAL HISTORY: Significant for diabetes and hypothyroidism as well as gastroesophageal reflux disease. ALLERGIES: None known. FAMILY HISTORY: Apparently noncontributory. SOCIAL HISTORY: The patient does not have substance abuse issues. She has 3 children. She is a . REVIEW OF SYSTEMS: Noncontributory. MENTAL STATUS: On interview, the patient relates to the examiner in an extremely primitive fashion. She is very hard of hearing. She asks the examiner if he has already gone to school today or if he wants to skip. Mood is anxious. Affect is very brittle. Speech is tangential and nonsensical. Content of thought exhibits delusional ideation because of severe sensorium deficits. The patient is oriented only to person. She showed global memory impairment. DIAGNOSTIC IMPRESSION: AXIS I: Alzheimer dementia with behavioral disturbance. AXIS II: No diagnosis. AXIS III: Hypothyroidism, diabetes, and hypercholesterolemia. AXIS IV: Severe. AXIS V: 30. PLAN: 1. The patient is admitted for further medical and psychiatric workup. 2. Diet and activities as tolerated. 3. We will assist with post-hospital placement. TRANSINT:[id number] Voice Confirmation ID: [id number] DOCUMENT ID: [id number] NORRIS NEWBY III, MD at 0331 CC: [id number] DICTATION DATE: 10/28/16 121 SCREENING REPRESENTATIVE: 10/28/16 1238 ADM IN [place] [id number] [place] [address]
[2016-11-04 07:00] VITALS: BP 121/61
--- NOTE | 2016-11-04 08:57 | NUR ---
B) PATIENT AWAKES YELLING AND SCREAMING, BUT AFTER SHE GOT OUT OF THE BED WITH STAFF ASSIST SHE IS BETTER AND SAYING "HI" TO EVERYONE. PATIENT IS ORINETED TO SELF ONLY, SHE DOES NOT KNOW WHERE SHE IS OR THE SITUATION. PATIENT CAN STAND WITH STAFF ASSIST FOR TRANSFERS, PATIENT IS [place] AND DIFFICULT TO COMMUNICATE WITH. I) PROVIDE PRESCRIBED MEDS. R) PATIENT IS COMPLIANT WITH CRUSHED AT TIMES. P) CONTINUE POC.
--- NOTE | 2016-11-04 13:38 | PN ---
PATIENT:ROSA GARCIA MEDICAL RECORD: [id number] LOCATION:JENNY Negron ADMISSION DATE: 10/27/16 PROGRESS NOTE DATE OF SERVICE: 10/31/2016 SUBJECTIVE: The patient's case was discussed with staff. She has no new complaint. OBJECTIVE: The patient is in good behavioral control with limited insight about her condition. She generally tolerates her medicines well. ASSESSMENT: No change in diagnoses. PLAN: The patient has had no screaming or disruptive behaviors today. She denies that she would seek to harm herself or others. Supportive and educational interventions were made. TRANSINT:[id number] Voice Confirmation ID: [id number] DOCUMENT ID: [id number] CHRISTY OROZCO MD at 1338 CC: [id number] DICTATION DATE: 10/31/16 1244 STRIP DEBURRER: 10/31/16 1413 ADM IN [place] [address] [place] [id number]
--- NOTE | 2016-11-04 16:06 | NUR ---
PATIENT IS YELLING OUT "I NEED MY MAMA AND MY DADDY" OVER AND OVER, EDGAR Juarez, MADE ATTEMPTS TO REDIRECT AND CONSOLE PATIENT, IT HELPED FOR A MINUTE THEM PATIENT WENT BACK TO HER YELLING RANT. HALDOL 2 MG IM IN RIGHT ARM GIVEN NOW.
[2016-11-04 20:01] VITALS: BP 112/70
--- NOTE | 2016-11-04 20:19 | NUR ---
RECEIVED IN DAYROOM. SITTING QUIETLY IN RECLINING CHAIR. NOT SOCIALIZING. CALM AND COOPERATIVE WITH CARE AND ASSESSMENTS. NO SIGNS OF AGGRESSION. REDIRECT AND REORIENT NEEDED. CONTINUES TO REST QUIETLY IN RECLINER. CONTINUE PLAN OF CARE
[2016-11-05 08:00] VITALS: BP 123/75
--- NOTE | 2016-11-05 10:21 | PN ---
PATIENT:ROSA GARCIA MEDICAL RECORD: [id number] LOCATION:JENNY Negron ADMISSION DATE: 10/27/16 PROGRESS NOTE DATE OF SERVICE: 11/04/2016 SUBJECTIVE: No new verbal complaint. OBJECTIVE: The patient has continued to show episodes of extreme agitation and screaming. She frequently refuses medications and food. She, at other times, is more cooperative. On exam, mood is irritable. Affect is very brittle. Speech is nonsensical. Content of thought shows nonspecific paranoid ideation. Sensorium is unchanged. ASSESSMENT: 1. Psychosis, not otherwise specified. 2. Alzheimer dementia with behavioral disturbance. PLAN: 1. Continue all current medications. 2. Continue supportive therapy. TRANSINT:[id number] Voice Confirmation ID: [id number] DOCUMENT ID: [id number] NORRIS NEWBY III, MD at 1021 CC: [id number] DICTATION DATE: 11/04/16 1102 SUPERVISOR SHRIMP POND: 11/04/16 1201 ADM IN [place] [id number] [place] [id number]
--- NOTE | 2016-11-05 10:48 | NUR ---
Patient non-compliant with meds, spitting meds, yelling aloud. Pt continued to disrupt the group therapy by cursing and yelling. Haldol/lorazepam admin IM per orders - See APR. Christ meds well. Cont POC including meds and group therapy.
--- NOTE | 2016-11-05 11:10 | NUR ---
Resting quietly in recliner, resp even and unlabored, eyes closed, no s/s distress.
--- NOTE | 2016-11-05 14:33 | NUR ---
RD f/u note Pt continues to have decrease po inake, consuming diabetic diet with an average of 54%X 9 meals. noted to refussed meal, offered supplement and pt refused it, BM 10/31, weight 11/02 120.5 decreased likely multifactorially influenced though enhanced by decrease intake. dwayne 13, noted to have reddened area to perie area an burisies on arm. Meds reviewed. Plan: continue current diet, continue to to offer supplements if pt consume < 75% of meals. RD to follow
--- NOTE | 2016-11-05 15:36 | NUR ---
SW CONTACTED [facility]. THEY ARE GOING TO ACCEPT PT BACK.
[2016-11-05 20:51] VITALS: BP 131/63
--- NOTE | 2016-11-05 21:55 | NUR ---
RECEIVED IN BEDROOM. RESTING IN BED WITH EYES CLOSED. RESPONDS TO TOUCH. CALM AND COOPERATIVE WT CARE AND ASSESSMENT. NO SIGNS OF AGGRESSION. TOOK ALL PM MEDS ORDERED WT ENCOURAGEMENT. CONTINUE TO ENCOURAGE MED COMPLIANCE. REDIRECT AND REORIENT NEEDED. RESTING IN BED WITH EYES CLOSED. CONTINUE PLAN OF CARE.
[2016-11-06 08:00] VITALS: BP 150/79
--- NOTE | 2016-11-06 10:19 | PN ---
PATIENT:ROSA GARCIA MEDICAL RECORD: [id number] LOCATION:JENNY Negron ADMISSION DATE: 10/27/16 PROGRESS NOTE DATE OF SERVICE: 11/05/2016 SUBJECTIVE: No coherent complaint. OBJECTIVE: The patient continues to be very uncooperative with medication. She is aggressive and assaultive from time to time. On exam, mood is irritable and hostile. Affect is very brittle. Speech is terse. Content of thought exhibits nonspecific paranoid ideation. Sensorium shows no change. ASSESSMENT: No change in diagnosis. PLAN: 1. Advance Risperdal to 1 mg b.i.d. 2. Continue the other medications as currently ordered. 3. Continue supportive therapy. TRANSINT:[id number] Voice Confirmation ID: [id number] DOCUMENT ID: [id number] NORRIS NEWBY III, MD at 1019 CC: [id number] DICTATION DATE: 11/05/16 1124 PILLOWCASE CUTTER: 11/05/16 1327 ADM IN [place] [id number] [place] [address]
--- NOTE | 2016-11-06 10:30 | NUR ---
B) PATIENT HAS BEEN PLEASNT, BUT CONFUSED, SHE KNOWS HER NAME. SHE IS [place] AND IT IS DIFFICULT TO COMMUNICATE WITH HER AT TIMES. SHE DID TRY TO SWAT AT [facility] ONCE TODAY WHEN THEY WERE REDRECTING HER SO SHE WOULD NOT SLIP OUT OF THE CHAIR, BUT MOSTLY SHE HAS STAYED AWAKE AND TALKED, NONSENSICAL, BUT IN A GOOD MOOD. SHE HAS EATEN MINIMALLY TODAY, DID ORDER FINGER FOODS TO SEE IF SHE LIKED THAT BETTER, SHE DID NOT WANT TO TO BE FED TODAY. SHE SAID "ENOUGH, IS ENOUGH." I) PROVIDE PRESCRIBED MEDS. R) PATIENT IS COMPLIANT WITH MEDS TODAY, SHE HAD THEM CRUSHED IN A CHOCOLATE MILKSHAKE. P) CONTINUE POC.
--- NOTE | 2016-11-06 17:52 | NUR ---
GUARDIAN CALLED AND ASKED ABOUT MEDS.
[2016-11-06 19:58] VITALS: BP 112/63
--- NOTE | 2016-11-07 01:29 | NUR ---
B) Patient is alert and oriented to self, [place], calm and pleasant, I) Administered scheduled medications, monitored for safety, redirected as needed. R) Medications compliant, patient able to feed herself provided it is chocolate. P) Continue plan of care.
--- NOTE | 2016-11-07 05:14 | PN ---
PATIENT:ROSA GARCIA MEDICAL RECORD: [id number] LOCATION:JENNY Negron ADMISSION DATE: 10/27/16 PROGRESS NOTE DATE OF SERVICE: 11/06/2016 SUBJECTIVE: No new complaint noted. OBJECTIVE: Staff reports today that the patient will take medications if it is mixed in chocolate milk. 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 For example, the patient attempts to suck liquid from a fork. However, if she is carefully assisted, she does eat well. She appears to have significant visual impairment. On exam, mood is slightly anxious. Affect is brittle. Speech is tangential. Content of thought is negative for overt psychosis. Sensorium shows no change. ASSESSMENT: No change in diagnosis. PLAN: 1. Maintain current medication. 2. Continue supportive therapy. TRANSINT:[id number] Voice Confirmation ID: [id number] DOCUMENT ID: [id number] NORRIS NEWBY III, MD at 0514 CC: [id number] DICTATION DATE: 11/06/168 DRY KILN FEEDER: 11/06/16 1227 ADM IN [place] [id number] [place] [address]
[2016-11-07 08:36] VITALS: BP 152/72
--- NOTE | 2016-11-07 10:15 | NUR ---
B) PATIENT IS AWAKE AND ALERT, SHE IS [place] AND IT IS DIFFICULT TO COMMUNICICATE, SHE SCREAMS AND HOLLERS IN AM BECAUSE SHE DOES NOT WANT TO GET OUT OF BED, SHE HAS SETTLED SINCE GETTING UP OUT OF BED. I) PROVIDE PRESCRIBED MEDS. R) PATIENT IS COMPLIANT WITH MEDS TODAY. P)CONTINUE POC.
[2016-11-07 19:30] VITALS: BP 132/59
--- NOTE | 2016-11-08 04:01 | NUR ---
B) Patient is alert and oriented to self, [place], cooperative with care and assessment, I) Administered scheduled medications, monitored for safety. R) Medication compliant, resting quietly. P) Continue plan of care.
[2016-11-08 09:41] VITALS: BP 157/78
--- NOTE | 2016-11-08 15:16 | NUR ---
B) ALERT AND VERY CONFUSED, CALM WHEN RESTING IN RECLINER, BUT UNCOOPERATIVE WITH CARE. SHE SPIT HER MEDICATIONS ONTO FLOOR, CONSTANTLY TRYING TO GET OUT OF CHAIR, CURSING AND HIT THIS NURSE IN STOMACH. I) ADMINISTERED SCHEDULED MEDICATIONS IN MIGHTY SHAKE. PATIENT SPIT OUT ENSURE AND SOME OF MEDS FIRST. ASSESSMENT COMPLETED. R) NON- COMPLIANT WITH TAKING SOME OF MEDS. RESTING IN RECLINER. P) CONTINUE PLAN OF CARE AND MONITOR FOR SAFETY AND CHANGES.
[2016-11-08 20:25] VITALS: BP 147/64
--- NOTE | 2016-11-09 01:09 | NUR ---
B) Patient alert and oriented to self, isolating and difficult with care, wanting to left alone, I) Administered scheduled medications monitored for safety and falls, R) Medication compliant, grumpy and fussy tonight, P) Continue plan of care.
[2016-11-09 07:00] VITALS: BP 128/83
--- NOTE | 2016-11-09 11:59 | NUR ---
CONFUSED AND DISORIENTED,ORIENTED TO NAME ONLY.AGGRESSIVE WITH STAFF DURING TRANSFER AND REPOSITIONING.PINCHED AND BROUGHT BLOOD TO LEFT INNER THIGH OF [facility] WHEN REPOSITIONING IN RECLINER.TAKES MEDS CRUSHED AND IN CHOCLATE PUDDING.WILL CONTINUE WITH PLAN OF CARE,MONITOR FOR SAFETY AND CHANGES.LEON CHAIR ALARM INTACT.
--- NOTE | 2016-11-09 13:06 | NUR ---
HALDOL 2MG IM GIVEN FOR YELLING OUT ,SCREAMING.TRYING TO GET OUT OF CHAIR WITHOUT ASSIST.
[2016-11-09 19:35] VITALS: BP 121/62
--- NOTE | 2016-11-09 20:07 | PN ---
PATIENT:ROSA GARCIA MEDICAL RECORD: [id number] LOCATION:JENNY Negron ADMISSION DATE: 10/27/16 PROGRESS NOTE DATE OF SERVICE: 11/07/2016 SUBJECTIVE: No new complaint. OBJECTIVE: The patient continues to show a great deal of confusion and requires a lot of assistance and redirection. No combativeness last 24 hours. On exam, mood is euthymic. Affect is rather withdrawn. Speech is terse and minimal. Content of thought focuses only on somatic concerns. Sensorium shows no change. ASSESSMENT: No change in diagnosis. PLAN: 1. Maintain current medications. 2. Continue supportive therapy. TRANSINT:[id number] Voice Confirmation ID: [id number] DOCUMENT ID: [id number] NORRIS NEWBY III, MD at 2006 CC: [id number] DICTATION DATE: 11/07/16 1154 MANAGING PARTNER: 11/07/16 1322 ADM IN [place] [id number] [place] [id number]
--- NOTE | 2016-11-10 00:10 | NUR ---
RECEIVED IN DAYROOM. SITTING AT TABLE IN WHEELCHAIR. VERY CONFUSED. CALM AND COOPERATIVE WITH VS AND ASSESSMENT. BECOMES COMBATIVE DURING HANDS ON CARE. REFUSED ORAL PM MEDS. NO SIGNS OF AGGRESSION. ENCOURAGE TO EXPRESS NEEDS. REDIRECT AND REORIENT NEEDED. RESTING IN BED WITH EYES CLOSED AT THIS TIME. CONTINUE PLAN OF CARE.
[2016-11-10 07:00] VITALS: BP 150/65
--- NOTE | 2016-11-10 16:00 | NUR ---
B) AWAKE AND ALERT TO SELF ONLY. VERY CONFUSED AND AGGRESSIVE WITH ADL CARE. SHE CURSES AT STAFF AT TIMES. HAD HALLUCINATION ABOUT HER DAD GOING TO PICK HER UP. I) PROVIDE PRESCRIBED MEDICATIONS, ASSESSMENT AND VS COMPLETED. R) REFUSED ALL ORAL MEDICATIONS AND SPIT THESE OUT. P) CONTINUE PLAN OF CARE AND MONITOR FOR SAFETY AND CHANGES.
[2016-11-10 19:20] VITALS: BP 134/71
--- NOTE | 2016-11-10 21:38 | NUR ---
RECEIVED IN [place]. SITTING IN RECLINER AT NURSES STATION. CALM AND COOPERATIVE WITH CARE AND ASSESSMENT. NO SIGNS OF AGGRESSION. PT MORE COOPERATIVE THIS EVENING AND TOOK ALL PM MEDICATIONS. ATTEMPTS TO CLIMB OUT OF BED WITHOUT ASSISTANCE. ALARM SOUNDING. YELLING OUT AT TIMES. ENCOURAGE TO EXPRESS NEEDS. REDIRECT AND REORIENT NEEDED. RESTING IN BED WITH EYES CLOSED AT THIS TIME. CONTINUE PLAN OF CARE.
--- NOTE | 2016-11-11 09:00 | NUR ---
Pt alert, resistant to care, screams, hits, scratches with care, med compliant. Meds admin per orders with no s/s adverse reaction. Group therapy provided. Pt present for group with little participation. Cont POC including medications and grouop therapy.
[2016-11-11 09:53] VITALS: BP 151/66
--- NOTE | 2016-11-11 10:46 | PN ---
PATIENT:ROSA GARCIA MEDICAL RECORD: [id number] LOCATION:JENNY Negron ADMISSION DATE: 10/27/16 PROGRESS NOTE DATE OF SERVICE: 11/10/2016 SUBJECTIVE: The patient does not have a coherent complaint. OBJECTIVE: The patient has been very uncooperative, frequently refusing medications or spitting them out. She has had episodes of agitation and verbal aggressiveness. On exam, mood is very irritable. Affect is shallow and brittle. Speech is repetitive. Content of thought is negative for overt psychosis. Sensorium shows no change. ASSESSMENT: No change in diagnosis. PLAN: 1. We will maintain current medication regimen for now. 2. Continue supportive therapy. TRANSINT:[id number] Voice Confirmation ID: [id number] DOCUMENT ID: [id number] NORRIS NEWBY III, MD at 1046 CC: [id number] DICTATION DATE: 11/10/16 1136 COMPUTER AIDED DESIGN OPERATOR: 11/10/16 1200 ADM IN [place] [id number] [place] [address]
[2016-11-11 20:10] VITALS: BP 131/78
--- NOTE | 2016-11-11 21:20 | NUR ---
RECEIVED IN BED. RESTING WITH CLOSED. RESPONDS TO VOICE. CALM AND COOPERATIVE WITH CARE AND ASSESSMENT. NO SIGNS OF AGGRESSION. NO ATTENTION SEEKING BEHAVIORS. ENCOURAGE TO EXPRESS NEEDS. CONTINUES TO REST IN BED WITH EYES CLOSED. CONTINUE PLAN OF CARE.
[2016-11-12 08:33] VITALS: BP 145/57
--- NOTE | 2016-11-12 10:33 | PN ---
PATIENT:ROSA GARCIA MEDICAL RECORD: [id number] LOCATION:JENNY Negron ADMISSION DATE: 10/27/16 PROGRESS NOTE DATE OF SERVICE: 11/11/2016 SUBJECTIVE: The patient does not offer a new complaint. OBJECTIVE: Staff report the patient occasionally will take medications and certain liquids and so this will be emphasized. She is eating a little bit. On exam, mood remains irritable. Affect is very shallow and childlike. Speech is tangential. The patient has episodes of yelling without provocation. Content of thought focuses on somatic concerns. Sensorium shows no change. ASSESSMENT: No change in diagnosis. PLAN: 1. Continue all current medications. 2. Continue supportive therapy. TRANSINT:[id number] Voice Confirmation ID: [id number] DOCUMENT ID: [id number] NORRIS NEWBY III, MD at 1033 CC: [id number] DICTATION DATE: 11/11/16 1200 MARKETING ADMINISTRATOR: 11/11/16 1222 ADM IN [place] [address] [place] [address]
--- NOTE | 2016-11-12 11:43 | NUR ---
B) PATIENT IS AWAKE AND ALERT, SHE YELLED OUT THIS AM WITH CARE AND ASSISTING OUT OF BED. ONCE SHE IS UP SHE DOES WELL, SHE CAN STAND WITH ASSIST BY STAFF. PATIENT IS ORIENTED TO SELF ONLY, SHE IS DELUSIONAL AT TIMES. I) PROVIDE PRESCRIBED MEDS AND REDIRECT NEEDED. R) PATIENT IS [place], SHE IS COMPLIANT WITH MEDS CRUSHED IN A MILKSHAKE. P) CONTINUE POC.
[2016-11-12 20:22] VITALS: BP 108/90
--- NOTE | 2016-11-12 23:36 | NUR ---
B) Patient alert and oriented to self, yelled out in loud voice "Information, Information the toilet is in the bathroom' several times, called out for Lizbet several times, I) Administered scheduled medications, monitored for falls and safety, R) Medications compliant, transfers with assist, cooperative at times. P) Continue plan of care.
--- NOTE | 2016-11-13 07:48 | NUR ---
B) PATIENT IS AWAKE AND SHE DID HAVE A LARGE LOOSE BM THIS AM, SHE IS YELLING AND SCREAMING. SHE DOES NOT LIKE TO GET OUT OF BED AND SHE DOES NOT LIKE PERSONAL CARE, ONCE UP OUT OF BED SHE IS CALMER AND SETTLES. PATIENT NEEDS ASSIST TO TRANSFER. I) PROVIDE PRESCRIBED MEDS. R) PATIENT IS [place] AND IT IS DIFFICULT TO COMMUNICATE WITH HER. SHE ENJOYS SITTING BY THE WINDOW, BUT SHE DOES NOT KNOW WHERE SHE IS AND OFTEN TALKS ABOUT [place]. P) CONTINUE POC.
[2016-11-13 08:00] VITALS: BP 110/84
--- NOTE | 2016-11-13 12:28 | NUR ---
NUTRITION F/U CHART REVIEWED. +BM RECORDED. GOOD INTAKE RECENT MEALS PER I&O RECORDS. WILL CONTINUE TO PROVIDE DIET, MONITOR PO INTAKE. RD FOLLOWING
[2016-11-13 20:58] VITALS: BP 106/64
--- NOTE | 2016-11-14 02:47 | NUR ---
B) Patient alert and oriented to self, calm and cooperative with staff, I) Administered scheduled, monitored for safety and falls, R) Medication compliant, resting quietly in bed, P) Continue plan of care.
[2016-11-14 08:15] VITALS: BP 141/75
--- NOTE | 2016-11-14 11:45 | NUR ---
B) PATIENT IS SLEEPY TODAY, SHE HAS HAD LOOSE BM'S AND SAYS SHE DOES NOT FEEL WELL, SHE DID NOT EAT BREAKFAST AND REFUSED HER MEDS, DID GET HER RISPRDAL IN HER AND THAT IS ALL, SHE IS SLEEPING IN THE [place] CHAIR AND DOES NOT WANT TO BE BOTHERED. I) PROVIDE PRESCRIBED MEDS AND REDIRECT NEEDED. R) PATIENT IS CALM AND SHE DID RECEIVE A SHOWER THIS AM. SHE IS ORIENTED TO SELF ONLY AND SHE IS [place] SO IT IS DIFFICULT TO COMMUNICATE. P) CONTINUE POC.
--- NOTE | 2016-11-14 17:09 | PN ---
PATIENT:ROSA GARCIA MEDICAL RECORD: [id number] LOCATION:JENNY Negron ADMISSION DATE: 10/27/16 PROGRESS NOTE DATE OF SERVICE: 11/13/2016 SUBJECTIVE: The patient's case was discussed with staff. She has no new complaint. OBJECTIVE: The patient denies intent to harm herself or others. She generally tolerates her medicines well. She is sleeping well and eating reasonably well. ASSESSMENT: No change in diagnoses. PLAN: Current medicines have been reviewed and will be maintained. Her long-term prognosis is guarded. TRANSINT:[id number] Voice Confirmation ID: [id number] DOCUMENT ID: [id number] CHRISTY OROZCO MD at 1709 CC: [id number] DICTATION DATE: 11/13/16 1228 MANUFACTURING ADVISOR: 11/13/16 1446 ADM IN [facility] [address] [place] [address]
[2016-11-14 19:40] VITALS: BP 121/59
[2016-11-15 08:10] VITALS: BP 133/63
--- NOTE | 2016-11-15 11:56 | PN ---
PATIENT:ROSA GARCIA MEDICAL RECORD: [id number] LOCATION:JENNY Negron ADMISSION DATE: 10/27/16 PROGRESS NOTE DATE OF SERVICE: 11/14/2016 SUBJECTIVE: The patient's case was discussed with staff. She has no new complaint. OBJECTIVE: The patient is in good behavioral control with limited insight about her condition. She generally tolerates her medicines well. She is rambling and at times very confused, but she has not been aggressive. ASSESSMENT: No change in diagnoses. PLAN: The patient will be maintained on current medications, which I have reviewed. She will have a Depakote level checked tomorrow morning. TRANSINT:[id number] Voice Confirmation ID: [id number] DOCUMENT ID: [id number] CHRISTY OROZCO MD at 1156 CC: [id number] DICTATION DATE: 11/14/16 175 HAND TILE MAKER: 11/14/16 194 ADM IN [place] [id number] [place] [address]
--- NOTE | 2016-11-15 12:22 | NUR ---
ORIENTED TO [place] ONLY.NO YELLING OUT TODAY EXCEPT FOR THIS AM WHEN DRESSING AND GETTING HER OUT OF BED PER MHT.IS COMPLIANT WITH MEDS.MEDS CRUSHED AND GIVEN IN APPLESAUCE.SLEEPS MOST OF THE DAY BUT AWAKENS FOR MEALS.REQUIRES SPOON FEEDING PER STAFF.IS TOTAL CARE.WILL CONTINUE WITH PLAN OF CARE,MONITOR FOR CHANGES AND SAFETY.
[2016-11-15 19:30] VITALS: BP 129/57
--- NOTE | 2016-11-15 22:36 | NUR ---
B) patient alert and oriented to name, very confused and unaware of her surroundings at times, calls out for her parents at times, cooperative with care. I) Administered scheduled medications, monitored for safety, R) medication compliant, resting quietly in be, P) Continue plan of care.
[2016-11-16 08:19] VITALS: BP 127/64
--- NOTE | 2016-11-16 11:00 | NUR ---
B) AWAKE AND ORIENTED TO SELF ONLY. CALM AND COOPERATIVE, AWAKENS FOR MEALS, BUT SLEEPING IN RECLINER MOST OF DAY. I) ADMINISTERED PRESCRIBED MEDICATIONS, VSS, ASSEESSMENT COMPLETED. R) MEDICATION COMPLIANT, RESTING QUIETLY IN RECLINER. P) CONTINUE PLAN OF CARE.
--- NOTE | 2016-11-16 19:55 | NUR ---
RECEIVED IN DAYROOM. RESTING IN RECILING CHAIR WITH EYES OPEN. TALKING WITH STAFF AND PEERS AT TIMES. NO SIGNS OF AGGRESSION AT THIS TIME. REDIRECT AND REORIENT NEEDED. CONTINUES TO SOCIALIZING WITH PEERS. CONTINUE PLAN OF CARE
[2016-11-16 20:00] VITALS: BP 120/63
[2016-11-17 08:00] VITALS: BP 136/78
--- NOTE | 2016-11-17 09:00 | NUR ---
B) AWAKE AND ALERT, BUT CONFUSED, AND VERY [place]. SITTING CALM AND COOPERATIVE IN RECLINER. LESS AGITATION WITH GETTING UP THIS MORNING. I) ADMINISTERED PRESCRIBED MEDICATIONS CRUSHED IN APPLESAUCE. P) CONTINUE PLAN OF CARE.
--- NOTE | 2016-11-17 13:33 | PN ---
PATIENT:ROSA GARCIA MEDICAL RECORD: [id number] LOCATION:[facility] ADMISSION DATE: 10/27/16 PROGRESS NOTE DATE OF SERVICE: 11/15/2016 SUBJECTIVE: The patient's case was discussed with staff. She has no new complaint. OBJECTIVE: The patient is somewhat irritable and has some mood lability. She is intermittently quite agitated. ASSESSMENT AND PLAN: She does not have a therapeutic Depakote level and the Depakote does not seem to have made much of a difference in her behavior. I am going to discontinue it. I will monitor her for clinical changes associated with her current medications. Her long-term prognosis is guarded. Brief supportive and educational interventions were made. TRANSINT:[id number] Voice Confirmation ID: [id number] DOCUMENT ID: [id number] CHRISTY OROZCO MD at 1333 CC: [id number] DICTATION DATE: 11/15/[address] ADVISOR: 11/15/16 1240 ADM IN [place] [id number] [place] [id number]
--- NOTE | 2016-11-17 13:58 | NUR ---
Nutrition Follow Up: Pt is eating 58% meal avg on a diabetic cardiac diet. +BM 11/16/16. No new wt to assess. Meds and labs noted. Rec continue current diet. RD following.
[2016-11-17 20:07] VITALS: BP 137/76
--- NOTE | 2016-11-17 22:48 | NUR ---
RECEIVED IN BEDROOM. RESTING IN BED WITH EYES OPEN. RESTLESS. NOTED ANXIETY. VERY CONFUSED. CALM AND COOPERATIVE WITH ASSESSMENT. INCREASING ANXIETY. PRN ATIVAN 0.5 MG PO GIVEN. REDIRECT AND REORIENT NEEDED. RESTING IN BED WITH EYES CLOSED AT THIS TIME. CONTINUE PLAN OF CARE.
[2016-11-18 08:00] VITALS: BP 123/64
--- NOTE | 2016-11-18 09:00 | NUR ---
B) AWAKE AND ALERT, BUT STILL CONFUSED AND [place]. INCONTINENT OF LOOSE STOOL. NO IMPACTION FELT. HAS BEEN VERY QUIET TODAY, RESTING IN RECLINER. I) ADMINISTERED PRESCRIBED MEDICATIONS IN [facility], ASSESSMENT COMPLETED. R) COMPLIANT WITH MEDS. MONITOR FOR SAFETY. P) CONTINUE PLAN OF CARE.
--- NOTE | 2016-11-18 14:30 | PN ---
PATIENT:ROSA GARCIA MEDICAL RECORD: [id number] LOCATION:[facility] ADMISSION DATE: 10/27/16 PROGRESS NOTE DATE OF SERVICE: 11/17/2016 SUBJECTIVE: The patient's case was discussed with staff. She has no new complaint. OBJECTIVE: The patient denies intent to harm herself or others. She generally tolerates her medicines well. Eye contact is fair. ASSESSMENT: No change in diagnoses. PLAN: The patient will be maintained on risperidone for its antipsychotic properties. She is eating reasonably well and is sleeping reasonably well. I am going to start her on a low dose of Namenda. Hopefully, this will assist with her cognition. TRANSINT:[id number] Voice Confirmation ID: [id number] DOCUMENT ID: [id number] CHRISTY OROZCO MD at 1430 CC: [id number] DICTATION DATE: 11/17/16 1340 REROLLER HAND: 11/17/16 1403 ADM IN [place] [address] [place] [address]
--- NOTE | 2016-11-19 00:15 | NUR ---
RECEIVED IN BEDROOM. RESTING IN BED WITH EYES OPEN. CALM AND COOPERATIVE WITH CARE AND ASSESSMENT. NO SIGNS OF AGGRESSION. PROVIDE ONE ON ONE TIME TO EXPRESS NEEDS. REDIRECT AND REORIENT NEEDED. RESTING IN BED WITH EYES CLOSED AT THIS TIME. CONTINUE PLAN OF CARE.
[2016-11-19 09:34] VITALS: BP 136/79
--- NOTE | 2016-11-19 13:00 | PN ---
PATIENT:ROSA GARCIA MEDICAL RECORD: [id number] LOCATION:[facility] ADMISSION DATE: 10/27/16 PROGRESS NOTE DATE OF SERVICE: 11/18/2016 SUBJECTIVE: The patient's case was discussed with staff. She has no new complaint. OBJECTIVE: The patient is in good behavioral control with limited insight about her condition. She tolerates her medications well, but unfortunately, she has been periodically screaming and has required p.r.n. medications. ASSESSMENT: No change in diagnoses. PLAN: The patient has been taking Risperdal at a very reasonable dose of 2 mg a day without significant improvement. I am viewing it at this point as a treatment failure and we will discontinue it. In its place, I am going to start her on Geodon at a dose of 20 mg twice daily. She will be monitored for clinical effects associated with the medication. Her long-term prognosis is guarded. TRANSINT:[id number] Voice Confirmation ID: [id number] DOCUMENT ID: [id number] CHRISTY OROZCO MD at 1300 CC: [id number] DICTATION DATE: 11/18/16 1452 RANGE MECHANIC: 11/18/16 1622 ADM IN [facility] [address] [place] [address]
--- NOTE | 2016-11-19 17:48 | NUR ---
AWAKE AND SCREAMING AT STAFF WHILE GETTING HER DRESSSED AND CLEANED UP. SITTING IN RECLINER, AND EVENTUALLY LET HER ASSESSMENT BE DONE. REDIRECT AND REORIENT NEEDED. ADMINISTER MEDICATIONS. COMPLIANT WITH TAKING MEDS. MONITOR FOR SAFETY AND CONTINUE PLAN OF CARE.
[2016-11-19 19:36] VITALS: BP 112/58
--- NOTE | 2016-11-19 22:00 | NUR ---
RECEIVED IN BEDROOM. RESTING IN BED WITH CLOSED. RESPONDED TO TOUCH. CALM AND COOPERATIVE WITH CARE AND ASSESSMENT. MED COMPLIANT. NO SIGNS OF AGGRESSION. NOT YELLING OUT THIS EVENING. REDIRECT AND REORIENT NEEDED. RESTING IN BED WITH EYES CLOSED AT THIS TIME. CONINTUE PLAN OF CARE.
[2016-11-20 08:00] VITALS: BP 113/69
--- NOTE | 2016-11-20 10:00 | NUR ---
B) STAFF GOT PATIENT UP THIS AM AND SHE SCREAMS AT THEM TO GET OUT AND GO AWAY, BUT AFTER SHE IS UP AND GOES TO BREAKFAST SHE IS CALM AND SHE LIKES TO SOCIALIZE. SHE DOES NOT MAKE MUCH SENSE, BUT SHE LIKES COMPANY AND WANTS SOMEONE SITTING BY HER ALL DAY. PATIENT IS CONFUSED AND IT IS DIFFICULT TO UNDERSTAND HER. SHE CAN STAND TO HELP STAFF ASSIST HER WITH TRANSFERS. I) PROVIDE PRESCRIBED MEDS AND REDIRECT NEEDED. R) PATIENT IS COMPLIANT WITH MEDS AND SHE IS FINE ONCE SHE GETS UP IN THE AM, NO AGGRESSION OR YELLING. P) CONTINUE POC.
--- NOTE | 2016-11-20 10:29 | PN ---
PATIENT:ROSA GARCIA MEDICAL RECORD: [id number] LOCATION:[facility]gr[facility] ADMISSION DATE: 10/27/16 PROGRESS NOTE DATE OF SERVICE: 11/12/2016 SUBJECTIVE: No new complaint. OBJECTIVE: The patient is taking her medications as ordered. She is occasionally irritable during personal care, but otherwise behavior has improved. On exam, mood is euthymic. Affect is bland. Speech is terse. Content of thought focuses on somatic complaints. Sensorium is unchanged. ASSESSMENT: No change in diagnosis. PLAN: 1. Maintain current medication. 2. Continue supportive therapy. TRANSINT:[id number] Voice Confirmation ID: [id number] DOCUMENT ID: [id number] NORRIS NEWBY III, MD at 1029 CC: [id number] DICTATION DATE: 11/12/16 1123 DENTAL LABORATORY ASSISTANT: 11/12/16 1217 ADM IN [facility] [address] [place] [address]
[2016-11-20] MEDS ORDERED: NYSTATIN ORAL SU5 ML PO (11:34)
[2016-11-20] MEDS ORDERED: NAMENDA5 MG PO (11:34)
[2016-11-20] MEDS ORDERED: GEODON20 MG PO (11:35)
[2016-11-20] MEDS ORDERED: HUMULIN R100 U/ML SC (11:36)
[2016-11-20] MEDS ORDERED: GLUCAGEN1 MG/VIAL IM (11:36)
[2016-11-20] MEDS ORDERED: GLUCAGEN1 MG/VIAL SC (11:36)
[2016-11-20] MEDS ORDERED: GLUCOPHAGE500 MG PO (11:36)
[2016-11-20] MEDS ORDERED: VITAMIN D5000 UNIT PO (11:37)
--- NOTE | 2016-11-20 12:23 | NUR ---
SW CONTACTED PT'S DTR, RICARDO, AND INFORMED OF PT'S DISCHARGE PLAN AND NEEDS AT TIME OF DISCHARGE. RICARDO VOICED UNDERSTANDING OF DISCHARGE PLANS.
--- NOTE | 2016-11-20 13:31 | PN ---
PATIENT:ROSA GARCIA MEDICAL RECORD: [id number] LOCATION:[facility]EN[facility]gr[facility] ADMISSION DATE: 10/27/16 PROGRESS NOTE DATE OF SERVICE: 11/19/2016 SUBJECTIVE: The patient's case was discussed with staff. She has no new complaint. OBJECTIVE: The patient denies intent to harm herself or others. She generally tolerates her medicines well. Eye contact is fair. ASSESSMENT: No change in diagnoses. PLAN: Brief supportive and educational interventions were made. Long-term prognosis is guarded. TRANSINT:[id number] Voice Confirmation ID: [id number] DOCUMENT ID: [id number] CHRISTY OROZCO MD at 1331 CC: [id number] DICTATION DATE: 11/19/16 1313 MACHINE WIPER: 11/19/16 [address] [facility] [address] [place] [address]
[2016-11-20 22:45] VITALS: BP 137/65
--- NOTE | 2016-11-21 01:19 | NUR ---
B) Patient alert and oriented to self, yelling out at times, very confused and unaware of her surroundings, friendly and pleasant at times, I) Administered scheduled medications crushed, monitored for safety R) Medication compliant, resting quietly P) Continue plan of care.
[2016-11-21 09:40] VITALS: BP 146/75
--- NOTE | 2016-11-21 10:24 | PN ---
PATIENT:ROSA GARCIA MEDICAL RECORD: [id number] LOCATION:[facility]ENNY [facility]gron ADMISSION DATE: 10/27/16 PROGRESS NOTE DATE OF SERVICE: 11/20/2016 SUBJECTIVE: No new complaint. OBJECTIVE: The patient is overall doing much better. She is now more compliant about the medications. She is showing much better behavioral control. On exam, mood is euthymic. Affect is bland. Speech is rather terse. Content of thought is negative for overt psychosis. Sensorium is unchanged. ASSESSMENT: No change in diagnosis. PLAN: 1. We will continue current medication. 2. Anticipate discharge tomorrow. TRANSINT:[id number] Voice Confirmation ID: [id number] DOCUMENT ID: [id number] NORRIS NEWBY III, MD at 1024 CC: [id number] DICTATION DATE: 11/20/16 1143 ADMINISTRATIVE ASSOCIATE: 11/20/16 1208 ADM IN [place] [address] [place] [address]
--- NOTE | 2016-11-21 11:31 | NUR ---
PATIENT D/C FROM [facility], CALLED REPORT TO [facility], DID PROVIDE INSULIN VIALS AND HARD COPIES OF MAR AND D/C PAPERWORK TO THE [facility] PLANS INTELLIGENCE OFFICER CHIEF, CLOTHES PACKED AND ACCOUNTED FOR.
--- NOTE | 2016-11-22 20:51 | DS ---
PATIENT:ROSA GARCIA :[birth year] MEDICAL RECORD: [id number] DISCHARGE SUMMARY ADMISSION DATE: 10/27/16 DISCHARGE DATE: 11/21/16 DATE OF ADMISSION: 10/27/2016 DATE OF DISCHARGE: 11/21/2016 HISTORY OF PRESENT ILLNESS: This was the Second care home admission for this 89-year-old white female. She had previously been admitted in July 2016. She had a preexisting diagnosis of Alzheimer dementia at the time of her admission. The patient had been treated and shown improvement, but her daughter elected to have her return home. The patient again deteriorated and was exhibiting extreme combativeness and agitation. The patient was placed in [facility], but then transferred here because of continued behavioral problems. She had been taking Risperdal and Depakote with good control, but these medicines had been discontinued. For further details, please see previously dictated history. COURSE IN HOSPITAL: The patient was seen in consultation by Dr. Ford. Dr. Ford noted the presence of oral candidiasis, type 2 diabetes, hypertension, hypothyroidism, hyperlipidemia, past history of transient ischemic attack, and deep venous thrombosis. It was elected to have the patient resume routine treatment with neuroleptic medication. She was stabilized on Geodon 20 mg twice a day. She was placed on Namenda 2.5 mg b.i.d. for her dementia. She was also placed on nystatin 5 mg q.i.d. for her candidiasis. Glucophage 500 mg was added for her type 2 diabetes, Synthroid 150 mcg daily was administered along with Questran, Eliquis 5 mg b.i.d. Over the course of the hospitalization, the patient showed very gradual improvement in her behavior. By the time of discharge, the patient was much more cooperative and arrangements had been made for alf placement. FINAL DIAGNOSES: AXIS I: Alzheimer dementia with behavioral disturbance. AXIS II: No diagnosis. AXIS III: Hypothyroidism, diabetes, hypercholesterolemia, deep venous thrombosis. AXIS IV: Moderate. AXIS V: 40. PLAN: 1. The patient is discharged on current medications. 2. Diabetic diet. 3. Follow up with primary care physician. TRANSINT:[id number] Voice Confirmation ID: [id number] DOCUMENT ID: [id number] DISCHARGE SUMMARY REPORT [id number] RADHAROSA GAITAN III, NORRIS Anderson MD at 2051 CC: [id number] DICTATION DATE: 11/21/16 1140 ENGRAVER LETTER: 11/22/16 0203 DIS IN 11/21/16 [facility] [address] [facility] [place] [address]
== END 2016-11-21 11:32 | DRG 56 ==
LOC: D.PSYCH 11:22
PROVIDERS: ADMIT Psychiatry & Neurology Psychiatry
DX: G30.9 Alzheimer's disease, unspecified (principal); R53.2 Functional quadriplegia; F02.81 Dementia in other diseases classified elsewhere, unspecified severity, with behavioral disturbance; N39.0 Urinary tract infection, site not specified; E03.9 Hypothyroidism, unspecified; E11.9 Type 2 diabetes mellitus without complications; E78.00 Pure hypercholesterolemia, unspecified; I10 Essential (primary) hypertension; Z86.73 Personal history of transient ischemic attack (TIA), and cerebral infarction without residual deficits; Z86.718 Personal history of other venous thrombosis and embolism; Z74.09 Other reduced mobility; E55.9 Vitamin D deficiency, unspecified; B96.20 Unspecified Escherichia coli [E. coli] as the cause of diseases classified elsewhere

== ENCOUNTER 2016-12-18 14:11 | Inpatient (IN) | payer MEDICARE, OTHER ==
[~2016-12-18] VITALS: Ht 157.5 cm; Wt 62.3 kg
[~2016-12-18 14:11] MED LIST changes: +ACETAMINOPHEN325 MG PO; +ATIVAN0.5 MG PO; +GLUCAGEN1 MG/VIAL IM; +GLUCAGEN1 MG/VIAL SC; +GLUCOPHAGE500 MG PO; +HUMULIN R100 U/ML SC; +NAMENDA5 MG PO; +NYSTATIN ORAL SU5 ML PO; +SEROQUEL25 MG PO; +VIC-FORTE CAPSUL1 MG PO; +VITAMIN D5000 UNIT PO; +ZOLOFT50 MG PO
[2016-12-18] MEDS ORDERED: VITAMIN D31000 UNIT PO (14:32)
[2016-12-18] MEDS ORDERED: RISPERDAL1 MG PO (14:33)
[2016-12-18] MEDS ORDERED: PAMELOR 25 MG C25 MG PO (14:34)
[2016-12-18] MEDS ORDERED: KLONOPIN1 MG PO (14:37)
[2016-12-18] MEDS ORDERED: HYDROCODON-ACE1 EAC7 PO (14:39)
--- NOTE | 2016-12-18 15:57 | NUR ---
CALLED PATIENT'S DAUGHTER TO LET HER KNOW PATIENT IS HERE AT [facility] AND TO ESTABLISH A CODE WORD.
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
[2016-12-18 16:07] VITALS: BP 137/68; BMI 25.1
--- NOTE | 2016-12-18 16:34 | NUR ---
CALLED [facility] AND ASKED THEM IF PATIENT RECEIVED A FLU OR PNEUMONIA VACCINE, SPOKE TO MILAN AND SHE STATES THAT THE PATIENT'S DAUGHTER DECLINED THE FLU VACCINE THIS YEAR AND SHE WAS TOLD THE PATIENT HAD THE PNEUMINIA VACCINE, BUT THE YEAR IS UNKNOWN. ALSO ASKED MILAN IF THEY HAD SPOKEN TO PATIENTS DAUGHTER AND SHE SAID THEY HAD EARLIER THIS AM TO LET HER KNOW THEIR CONCERNS AND THE DAUGHTER RICARDO DID SAY IT WAS ON TO BRING HER HERE, BUT THIS NURSE HAS NOT HAD A CONVERSATION WITH HER, DID LEAVE A MESSAGE FOR HER TO CALL BACK.
--- NOTE | 2016-12-18 17:30 | NUR ---
PATIENT IS SCREAMING AND YELLING FOR "RAMIREZ" SHE IS SCREAMING AND SHE CAN NOT HEAR SO IT IS DIFFICULT TO REDIRECT HER IN ANY WAY, HER DAUGHTER DID CALL AND PROVIDE THE CODE WORD AND PATIENT DID RECIEVE HALDOL 2 MG WITH ATIVAN 0.5 MG PO, WILL MONITOR.
--- NOTE | 2016-12-18 18:00 | NUR ---
PATIENT IS STILL LOUD AND TRYING TO SLIDE OUT OF HER W/C, BUT SHE IS SLOWING DOWN A LITTLE FROM THE PRN MEDS, WILL CONTINUE TO MONITOR.
--- NOTE | 2016-12-18 20:06 | NUR ---
RECEIVED IN DAYROOM. SITTING IN RECLINER. VERY CONFUSED. RESTLESS AND ANXIOUS. CONTINUOUSLY ATTEMPTING TO STAND WITHOUT ASSSISTANCE. ALARM SOUNDING. AGGRESSIVE WITH STAFF. HITTING, SPITTING, ATTEMPTED TO BITE MHT. YELLING. NONCOOPERATIVE WITH CARE. REDIRECT AND REORIENT NEEDED. ONE ON ONE CARE FOR SAFETY. PATIENT CONTINUES TO ATTEMPT TO STAND WITHOUT ASSISTANCE. RESISTIVE TO REDIRECTION. CONTINUE PLAN OF CARE.
[2016-12-18 22:00] VITALS: BP 119/86
--- NOTE | 2016-12-19 08:04 | NUR ---
PATIENT IS AWAKE AND SHE IS SCREAMING, YELLING SHE IS MAKING SOUNDS LIKE A CREEK, SHE SAYS SHE IS COLD, WARM BLANKET WRAPPED ON PATIENT, SHE STILL HOLLERS. PROVIDED PATIENT SOMETHING TO DRINK, BUT PATIENT STILL YELLS. ATIVAN 0.5 MG PO GIVEN NOW FOR ANXIETY. WILL MONITOR.
--- NOTE | 2016-12-19 08:06 | NUR ---
RECEIVED IN HALLWAY. RESTING EYES OPEN IN RECLINING CHAIR. YELLING OUT CONSTANTLY. CALM AND COOPERATIVE WITH CARE AND ASSESSMENTS. NO SIGNS OF AGGRESSION. REDIRECT AND REORIENT NEEDED. CONTINUES TO SIT IN RECLINER YELLING OUT. CONTINUE P[SHARIF OF CARE
--- NOTE | 2016-12-19 08:30 | NUR ---
PATIENT CONTINUES TO YELL AND SCREAM.
[2016-12-19 09:55] VITALS: BMI 25.0
--- NOTE | 2016-12-19 10:00 | NUR ---
PATIENT IS YELLING AND SCREAMING, DIVERSIONAL ACTIVITIES ARE PROVIDED, BUT PATIENT IS NOT REDIRECTING, SHE IS [place] AND IT IS DIFFICULT TO COMMUNICATE WITH HER SHE HAS TO HAVE LOUD AND REPETITIVE SENTENCES.
--- NOTE | 2016-12-19 10:22 | NUR ---
PATIENT IS UPSETTING THE OTHER PATIENTS, SHE CONTINUES TO YELL AND SCREAM AND MAKE THE SOUND OF A [place] OR CALL OUT FOR SEVERAL OTHER PEOPLE. ATIVAN 0.5 MG WITH HALDOL 2 MG IM IN RIGHT HIP GIVEN NOW, MONITOR.
--- NOTE | 2016-12-19 10:38 | NUR ---
PATIENT TAKEN TO THE HALLWAY WITH A STAFF MEMBER TO SIT WITH HER. PATIENT CONTINUES TO SCREAM AND NOT REALLY SAY ANYTHING, SHE IS NOT SAYING SHE IS COLD, HUNGRY OR HURTS, SHE WANTS SOMEONE TO SIT WITH HER. MHT IS SITTING RIGHT NEXT TO HER AND TRYING TO CONVERSE WITH HER.
[2016-12-19 10:47] VITALS: BP 131/86
[2016-12-19 19:30] VITALS: BP 129/66
--- NOTE | 2016-12-20 05:26 | NUR ---
B) Patient is sleeping in day room, oriented to self, easy to arrouse, restless at times, delusional, calling out for family at times, I) administered scheduled medications, monitored for safety, R) Medication compliant, resting quietly in bed, P) Continue plan of care.
[2016-12-20 06:44] LABS: BASOPHILS 0.1 % (0-2); EOSINOPHILS 2.7 % (0-7); HEMATOCRIT 42.4 % (36.0-48.0); HEMOGLOBIN 14.2 g/dL (12-16); LYMPHOCYTES 30.9 % (15-50); MCHC 33.5 g/dL (31.0-37.0); MCV 95.5 fL (80.0-100.0); MEAN PLATELET VOLUME 11.1 fL (7.4-10.4); MONOCYTES 6.5 % (2-11); NEUTROPHILS 59.8 % (40-80); RBC 4.44 10x6/uL (4.00-5.40); RDW 13.4 % (11.5-14.5); WBC 6.9 10x3/uL (4.8-10.8)
[2016-12-20 06:46] LABS: PLATELET COUNT 172 10x3/uL (130-400)
[2016-12-20 06:54] LABS: HEMOGLOBIN A1C 6.7 % (4.8-6.0)
[2016-12-20 07:21] LABS: ALBUMIN 3.2 g/dL (3.4-5.0); ANION GAP 14.2 mmol/L (8-16); BILIRUBIN - TOTAL 0.88 mg/dL (0.2-1.3); CALCIUM 9.4 mg/dL (8.5-10.1); CARBON DIOXIDE 27.4 mmol/L (21.0-32.0); CHOL - HDL RATIO 2.5 ratio (2.3-4.1); CREATININE - SERUM 0.8 mg/dL (0.6-1.3); LDL-HDL RATIO 1.1 ratio (1.5-3.5); POTASSIUM - SERUM 3.6 mmol/L (3.5-5.1); PROTEIN - SERUM 7.1 g/dL (6.4-8.2); THYROID STIMULATING HORMONE 2.7 uIU/mL (0.36-3.74)
--- NOTE | 2016-12-20 07:25 | NUR ---
OBTAINED URINE VIA IN AND OUT CATH, WILL SEND TO LAB.
--- NOTE | 2016-12-20 07:37 | NUR ---
B) PATIENT IS SLEEPY THIS AM, BUT SHE IS NOT FIGHTING STAFF THIS AM, STAFF ASKED HER IF SHE WANTED TO GET UP AND EAT BREAKFAST SHE SAID "YES", ORAL CARE GIVEN NOW AND SHE IS TELLING STAFF "YOU ARE THE ORNERIEST MOTHER I EVER DID SEE" PATIENT IS CONFUSED, ORIENTED TO SELF ONLY AND SHE IS EXTREMELY [place]. I) PROVIDE PRESCRIBED MEDS. R) PATIENT REMAINS IN BED AT THIS TIME AND STAFF WILL GET HER UP FOR A SHOWER SHORTLY. PATIENT DOES HAVE YEAST IN BETWEEN HER LEGS AND IN THE CREASE ON THE LEFT SIDE IS VERY RED, WILL CLEANSE AND APPLY NYSTATIN POWDER. P) CONTINUE POC.
[2016-12-20 07:46] LABS: APPEARANCE CLEAR (CLEAR); BILIRUBIN NEGATIVE (NEGATIVE); COLOR DK YELLOW (YELLOW); GLUCOSE 50 mg/dL (NEGATIVE); KETONE NEGATIVE (NEGATIVE); NITRITE NEGATIVE (NEGATIVE); PROTEIN NEGATIVE (NEGATIVE); UROBILINOGEN NORMAL (NORMAL)
[2016-12-20 08:00] VITALS: BP 126/54
--- NOTE | 2016-12-20 10:29 | NUR ---
PATIENT IS SCREAMING, MAKING [place] SOUNDS, AND YELLING OUT NAMES, STAFF IS TRYING TO REDIRECT, BUT SHE IS FOCUSED NOT HAVING ENOUGH FORKS, SPOONS, KNIVES AND PLATES, SHE IS [place] SO IT IS DIFFICULT TO CONVERSE WITH HER. DID PROVIDE ATIVAN 0.5 MG PO WITH HALDOL 2 MG PO, WILL MONITOR
--- NOTE | 2016-12-20 11:00 | NUR ---
PATIENT IS STILL YELLING OUT AND SHE IS TRYING TO SLIDE HERSELF TO THE FLOOR GOING FORWARD IN THE CHAIR AND THEN TRIES TO SLIP OUT FROM THE BOTTOM.
--- NOTE | 2016-12-20 11:30 | NUR ---
DID HAVE SERGEI FIGUEROA T TAKE HER TO THE LOOMIS AND SIT WITH HER SHE KEPT SCREAMING AND UPSETTING OTHER PATIENTS. SERGEI DID PUT ON SOFT MUSIC AND SAT WITH HER.
--- NOTE | 2016-12-21 03:47 | NUR ---
B) Patient is sleeping in hallway away from other patients , patient had been yelling out and disturbing others , [place] , difficult to redirect, I) Administered scheduled medications, monitored for safety R) Medication compliant, patient is either asleep or yelling out for attention, P) Continue plan of care.
[2016-12-21 07:00] VITALS: BP 129/71
[2016-12-21 09:08] LABS: VITAMIN D 25 HYDROXY 26.1 ng/mL (30.0-100.0)
--- NOTE | 2016-12-21 16:58 | NUR ---
ORIENTED TO SELF ONLY.YELLING OUT.TRIES TO GET OUT OF RECLINER WITHOUT ASSIST.HITTING AT STAFF AT TIMES.REQUIRES SPOON FEEDING PER STAFF.WILL CONTINUE WITH PLAN OF CARE,MONITOR FOR CHANGES AND SAFETY.MEDS TAKEN CRUSHED AND PLACED IN APPLESAUCE.
--- NOTE | 2016-12-21 21:21 | NUR ---
RECEIVED IN HALLWAY. RESTING IN RECLINING CHAIR. YELLING OUT CONSTANTLY. REFUSED VITALS THIS PM. HITTING AT STAFF AT TIMES. REDIRECT AND REORIENT NEEDED. ENCOURAGE TO EXPRESS NEEDS. RESTING IN BED AT THIS TIME. ONLY YELLING OUT AT TIMES. CONTINUE PLAN OF CARE
[2016-12-22 08:17] VITALS: BP 144/77
--- NOTE | 2016-12-22 09:39 | PSY ---
PATIENT NAME:ROSA GARCIA MEDICAL RECORD: [id number] : [birth year] LOCATION:[facility] ADMISSION DATE: 12/18/16 ACCOUNT: [id number] PSYCHIATRIC EVALUATION DATE OF EVALUATION: 12/19/16 IDENTIFYING DATA: This is the third custodial admission for this 89-year-old white female. HISTORY OF PRESENT ILLNESS: This patient carries a previous diagnosis of Alzheimer dementia with behavioral disturbance. She has been admitted here on 2 previous occasions because of agitation and combativeness. The patient had once again been transferred back to [facility]. She had been discharged in early November of this year. At the time of discharge, the patient was taking a combination of Geodon and Namenda. Unfortunately, these medications were stopped while she was a patient at [facility] very shortly thereafter and the patient again became very agitated, labile and difficult to redirect. A similar occurrence happened on the previous admission at [facility], so on 2 separate occasions the patient has been discharged from this unit on medications, which had stabilized her only to have these medicines discontinued [facility]. Once again, the patient has been admitted because of agitation, combativeness and resistance to care. PAST MEDICAL HISTORY: Significant for hypothyroidism, gastroesophageal reflux disease, and type 2 diabetes. FAMILY HISTORY: Noncontributory. ALLERGIES: None listed. SOCIAL HISTORY: The patient is a . She has 3 children. She does not have substance abuse issues. MENTAL STATUS: On exam, the patient is extremely labile. She is very tearful, yelling out, difficult to redirect. She is quite hard of hearing as well. Affect is very childlike. Speech is rambling and nonsensical. Content of thought exhibits delusional ideation due to memory deficits. On sensorium testing, the patient is oriented to person. She has global memory impairment. DIAGNOSTIC IMPRESSION: AXIS I: Alzheimer's dementia with behavioral disturbance. AXIS II: No diagnosis. AXIS III: Hypothyroidism, diabetes, hypercholesterolemia, and gastroesophageal reflux disease. AXIS IV: Severe. AXIS V: 30. PLAN: 1. The patient is admitted for medication revision and supportive therapy. 2. We will work with referring agency regarding aftercare plans and possibly change in placement. TRANSINT:[id number] Voice Confirmation ID: [id number] DOCUMENT ID: [id number] NORRIS NEWBY III, MD at 0939 CC: [id number] DICTATION DATE: 12/19/16 1045 COOK TACO: 12/19/16 1124 ADM IN [place] [address] [place] [address]
[2016-12-22 11:13] LABS: FOLATE (FOLIC ACID) - SERUM 14.8 ng/mL (>3.0)
--- NOTE | 2016-12-22 13:00 | NUR ---
ORIENTED TO SELF ONLY, YELLING OUT, AND HOLLERING OUT LOUDLY. CALM AND COOPERATIVE WITH ASSESSMENT. COMPLIANT WITH TAKING MEDICATIONS CRUSHED IN APPLESAUCE. MONITOR FOR SAFETY AND CHANGES. WILL CONTINUE PLAN OF CARE.
[2016-12-22 19:21] VITALS: BP 107/53
--- NOTE | 2016-12-22 19:51 | NUR ---
RECEIVED IN BEDROOM. RESTING IN BED WITH EYES CLOSED. RESPONDS TO TOUCH. CALM AND COOPERATIVE WITH CARE AND ASSESSMENTS. NO SIGNS OF AGGRESSION. NOT YELLING OUT AT THIS TIME. CONTINUES TO REST QUIETLY IN BED. CONTINUE PLAN OF CARE
[2016-12-23 06:00] VITALS: BP 129/62
--- NOTE | 2016-12-23 06:06 | PN ---
PATIENT:ROSA GARCIA MEDICAL RECORD: [id number] LOCATION:[facility] ADMISSION DATE: 12/18/16 PROGRESS NOTE DATE OF SERVICE: 12/22/2016 SUBJECTIVE: No new complaint noted. OBJECTIVE: The patient continues to be very agitated. She also had frequently and requires frequent redirection. On exam, mood is anxious, tearful, frightened. Affect is extremely labile. Speech is nonsensical. Content of thought exhibits nonspecific paranoid ideation. Sensorium shows no change. ASSESSMENT: No change in diagnosis. PLAN: 1. Adjust medications as indicated. 2. Continue supportive therapy. TRANSINT:[id number] Voice Confirmation ID: [id number] DOCUMENT ID: [id number] NORRIS NEWBY III, MD at 0606 CC: [id number] DICTATION DATE: 12/22/16 1311 MARINE DRILLER: 12/22/16 1419 ADM IN [facility] [address] [place] [address]
--- NOTE | 2016-12-23 06:33 | NUR ---
PATIENT VERY LETHARGIC THIS AM. VS STABLE. NOT RESPONDING VERY WELL TO PAIN STIMULUS. DOCTOR CASTRO CALLED AND INFORMED OF STATE. NO NEW ORDERS RECEIVED. DOCTOR KEYONNA CALLED AND INFORMED OF STATE. NEW ORDER TO HOLD ZYPREXA RECEIVED.
[2016-12-23 07:55] LABS: BASOPHILS 0.2 % (0-2); HEMATOCRIT 43.3 % (36.0-48.0); HEMOGLOBIN 14.5 g/dL (12-16); IMMATURE GRANULOCYTES 0.3 % (0-5); LYMPHOCYTES 31.8 % (15-50); MCH 32.3 pg (26.0-34.0); MCHC 33.5 g/dL (31.0-37.0); MCV 96.4 fL (80.0-100.0); MEAN PLATELET VOLUME 11.3 fL (7.4-10.4); MONOCYTES 8.9 % (2-11); NEUTROPHILS 55.8 % (40-80); PLATELET COUNT 163 10x3/uL (130-400); RBC 4.49 10x6/uL (4.00-5.40); RDW 13.5 % (11.5-14.5); WBC 9.8 10x3/uL (4.8-10.8)
[2016-12-23 08:23] LABS: ALBUMIN 2.9 g/dL (3.4-5.0); ANION GAP 16.4 mmol/L (8-16); BILIRUBIN - TOTAL 0.61 mg/dL (0.2-1.3); CARBON DIOXIDE 23.3 mmol/L (21.0-32.0); CREATININE - SERUM 0.8 mg/dL (0.6-1.3); POTASSIUM - SERUM 3.7 mmol/L (3.5-5.1); PROTEIN - SERUM 6.7 g/dL (6.4-8.2)
[2016-12-23 11:08] VITALS: BP 115/62
--- NOTE | 2016-12-23 14:26 | NUR ---
Nutrition Follow Up: Chart reviewed. Pt is eating 28% meal avg on a diabetic [facility] soft diet. +BM 12/23/16. Meds and labs reviewed. Rec continue diabetic diet with PROOFREADER recs for consistencies. Pt may benefit from an appetite stimulant. RD following.
[2016-12-23 20:06] VITALS: BP 107/50
--- NOTE | 2016-12-23 22:20 | NUR ---
RECEIVED IN HALLWAY. SITTING IN A RECLINING CHAIR. ATTEMPTS TO LOWER HERSELF INTO FLOOR CONSTANTLY. VERY CONFUSED. COOPERATIVE WITH CARE AND ASSESSMENTS. NO SIGNS OF AGGRESSION. REDIRECT AND REORIENT NEEDED. CONTINUE TO SIT IN HALLWAY. ONE ON ONE FOR SAFETY. EYES CLOSED. CONTINUE PLAN OF CARE
--- NOTE | 2016-12-24 05:14 | PN ---
PATIENT:ROSA GARCIA MEDICAL RECORD: [id number] LOCATION:[facility] ADMISSION DATE: 12/18/16 PROGRESS NOTE DATE OF SERVICE: 12/23/2016 SUBJECTIVE: No new complaint. OBJECTIVE: The patient did become obtunded last night and early this morning medications were held. Valproic acid level from this morning is 63.2, which is therapeutic. On exam, mood for the most part euthymic. Affect is constricted. Speech is terse. Content of thought focuses only on somatic concerns. Sensorium shows no change. ASSESSMENT: No change in diagnosis. PLAN: 1. We will hold medications this morning and discontinue Zyprexa altogether. 2. As of this evening, we will resume Geodon at 20 mg twice a day. 3. Maintain other medications following this evening. 4. Continue supportive therapy. TRANSINT:[id number] Voice Confirmation ID: [id number] DOCUMENT ID: [id number] NORRIS NEWBY III, MD at 0514 CC: [id number] DICTATION DATE: 12/23/16 1041 ASSOCIATE CHEMIST: 12/23/16 [address] [facility] [address] [place] [address]
[2016-12-24 08:00] VITALS: BP 145/82
--- NOTE | 2016-12-24 11:00 | NUR ---
ORIENTED TO SELF ONLY. CALM AND COOPERATIVE WITH ASSESSMENT. HAS BEEN YELLING OUT LOUDLY AT STAFF. COMPLIANT WITH TAKING PRESCRIBED MEDICATIONS. MONITOR FOR SAFETY AND CHANGES. WILL CONTINUE PLAN OF CARE.
[2016-12-24 13:31] VITALS: Ht 157.5 cm; Wt 62.3 kg
[2016-12-24 19:43] VITALS: BP 108/63
--- NOTE | 2016-12-25 01:52 | NUR ---
B) patient sleeping in day room, oriented to self, quiet I) Administered scheduled medications, monitored for safety R) Medication compliant, resting quietly P) Continue plan of care.
[2016-12-25 08:00] VITALS: BP 147/81
--- NOTE | 2016-12-25 08:22 | PN ---
PATIENT:ROSA GARCIA MEDICAL RECORD: [id number] LOCATION:[facility] ADMISSION DATE: 12/18/16 PROGRESS NOTE DATE OF SERVICE: 12/24/2016 SUBJECTIVE: No coherent complaint. OBJECTIVE: The patient did become somewhat more agitated earlier today; however, she slept 7 hours last night. Vital signs are stable. On exam, mood is somewhat irritable. Affect is shallow and childlike. Speech is nonsensical. Content of thought is negative for overt psychosis. Sensorium shows no change. ASSESSMENT: No change in diagnosis. PLAN: 1. Continue current treatment regimen for now - we will stay with Geodon 20 mg b.i.d. as well as Depakote. 2. Continue supportive therapy. TRANSINT:[id number] Voice Confirmation ID: [id number] DOCUMENT ID: [id number] NORRIS NEWBY III, MD at 0822 CC: [id number] DICTATION DATE: 12/24/16 1128 CERNER ANALYST: 12/24/16 1145 ADM IN [place] [address] [place] [address]
--- NOTE | 2016-12-25 13:02 | NUR ---
SW HAS MADE SEVERAL ATTEMPTS TO CONTACT PT'S DTR. PHONE RINGS AND THERE IS NO WAY TO LEAVE VOICEMAIL. SW WILL CALL [facility] TO SEE IF THEY CAN CONTACT HER ABOUT DISCHARGE PLANS TO CHANGE NH.
--- NOTE | 2016-12-25 14:30 | NUR ---
B) PATIENT IS SLEEPY TODAY, SHE IS NOT YELLING, BUT SHE IS TRYING TO SLEEP A LOT. SHE DID NOT EAT WELL TODAY. I) PROVIDE PRESCRIBED MEDS. R) PATIENT IS COMPLIANT WITH MEDS CRUSHED IN A SHAKE. P) CONTINUE POC.
[2016-12-25 19:29] VITALS: BP 140/70
--- NOTE | 2016-12-26 02:42 | NUR ---
B) Patient is sleeping most of the time, oriented to name, PAUMA, difficult to communicate with, yelling out at times, repeating the same phrase several times, talking to unseen people, I) Administered scheduled medications crushed, monitored for safety R) Medications compliant, sleeping more, combative with care, P) Continue plan of care.
[2016-12-26 08:00] VITALS: BP 140/77
--- NOTE | 2016-12-26 09:55 | NUR ---
B) PATIENT IS SLEEPY, SHE AWAKENED TO GET UP OUT OF BED, BUT THEN SHE FELL ASLEEP, SHE DID NOT EAT BREAKFAST BECAUSE SHE IS TOO SLEEPY, DID NOT TAKE HER MEDICATION THIS AM BECAUSE SHE IS TOO SLEEPY. PATIENT IS SOLOMON, SHE KNOWS HER NAME, BUT SHE IS NOT AWARE OF HER SURROUNDINGS. I) PROVIDE PRESCRIBED MEDS. R) PATIENT IS SLEEPING AT THIS TIME. P) CONTINUE POC.
[2016-12-26 20:31] VITALS: BP 134/67
--- NOTE | 2016-12-27 02:00 | NUR ---
B) Patient is alert and restless, oriented to self only, yelling out at times, I) Administered scheduled medications crushed , monitored for safety R) Medication compliant, resting in hallway for safety P) Continue plan of care.
[2016-12-27 08:40] VITALS: BP 118/66
--- NOTE | 2016-12-27 10:32 | PN ---
PATIENT:ROSA GARCIA MEDICAL RECORD: [id number] LOCATION:[facility] ADMISSION DATE: 12/18/16 PROGRESS NOTE DATE OF SERVICE: 12/26/2016 SUBJECTIVE: The patient's case was discussed with staff. She has no new complaint. OBJECTIVE: The patient is in good behavioral control, but severely over sedated. ASSESSMENT: No change in diagnoses. PLAN: The patient will be treated with her current medications, but at a slightly lower dose. I am going to cut the dose of the Klonopin in half and I am also going to cut the dose of the Geodon in half. I am going to change the Depakote to the same dose, but skew it so that part is given in the morning and most of it is given at night, rather than equal dose 3 times a day. I am also going to check a Depakote level. Her prognosis is poor. She is severely impaired cognitively, very agitated, and really is almost unable to communicate appropriately. TRANSINT:[id number] Voice Confirmation ID: [id number] DOCUMENT ID: [id number] CHRISTY OROZCO MD at 1032 CC: [id number] DICTATION DATE: 12/26/16 1249 OTR COMPANY TRUCK DRIVER: 12/26/16 1320 ADM IN [place] [address] [place] [address]
--- NOTE | 2016-12-27 12:43 | NUR ---
CONFUSED AND DISORIENTED.HALLUCINATIMG,TALKING TO PEOPLE WHO ARE NOT HERE.ATTEMPTS TO GET OUT OF RECLINER WITHOUT ASSIST.YELLS OUT AT TIMES.COMPLIANT WITH MEDS .WILL CONTINUE WITH PLAN OF CARE ,MONITOR FOR CHANGES AND SAFETY.
--- NOTE | 2016-12-27 14:00 | NUR ---
GOOD RESPONSE TO ATIVAN,RESTING QUIETLY .
--- NOTE | 2016-12-27 20:02 | PN ---
PATIENT:ROSA GARCIA MEDICAL RECORD: [id number] LOCATION:[facility] ADMISSION DATE: 12/18/16 PROGRESS NOTE DATE OF SERVICE: 12/27/2016 SUBJECTIVE: The patient's case was discussed with staff. She has no new complaint. OBJECTIVE: The patient is in good behavioral control with limited insight about her condition. She generally tolerates her medicines well. ASSESSMENT: No change in diagnoses. PLAN: Brief supportive and educational interventions were made. [facility] prognosis is guarded. The patient is not eating very well. At this point, it is causing significant concern. I am going to start her on Megace to assist with appetite suppression. TRANSINT:[id number] Voice Confirmation ID: [id number] DOCUMENT ID: [id number] CHRISTY OROZCO MD at 2001 CC: [id number] DICTATION DATE: 12/27/16 1104 ASSOCIATE PROFESSOR: 12/27/16 1309 ADM IN [id number] [place] [address]
[2016-12-27 22:05] VITALS: BP 126/77
--- NOTE | 2016-12-27 23:22 | NUR ---
RECEIVED IN HALLWAY OUTSIDE OF NURSES STATION. CALM AND COOPERATIVE WITH CARE AND ASSESSMENT. NO SIGNS OF AGGRESSION. HALLUCINATING. REDIRECT AND REORIENT NEEDED. ENCOURAE TO EXPRESS NEEDS. PATIENT RESTING WITH EYES CLOSED AT AT THIS TIME. CONTINUE PLAN OF CARE.
[2016-12-28 08:00] VITALS: BP 160/90
--- NOTE | 2016-12-28 09:29 | NUR ---
ADMINISTERED MORNING MEDS CRUSHED MIXED IN QUESTRAN. PT IS BEING COOPERATIVE THIS MORNING. PLEASANT AFFECT. WILL CONTINUE TO MONITOR
--- NOTE | 2016-12-28 15:49 | NUR ---
AWAKEN FOR BREAKFAST. AROUSES, BUT UNABLE TO STAY AWAKE FOR BREAKFAST. RESTING QUIETLY IN RECLINER. NO AGGRESSIOM. CALM AND COOPERATIVE DURING ASSESSMENT. COMPLIANT WITH TAKING MEDICATIONS. MONITOR FOR SAFETY AND CHANGES. WILL CONTINUE PLAN OF CARE.
[2016-12-28 19:30] VITALS: BP 114/40
[2016-12-28 20:34] LABS: BASOPHILS 0.3 % (0-2); EOSINOPHILS 2.9 % (0-7); HEMATOCRIT 45.5 % (36.0-48.0); HEMOGLOBIN 15.1 g/dL (12-16); IMMATURE GRANULOCYTES 0.3 % (0-5); LYMPHOCYTES 29.3 % (15-50); MCH 31.7 pg (26.0-34.0); MCHC 33.2 g/dL (31.0-37.0); MCV 95.4 fL (80.0-100.0); MEAN PLATELET VOLUME 11.4 fL (7.4-10.4); MONOCYTES 11.4 % (2-11); NEUTROPHILS 55.8 % (40-80); PLATELET COUNT 116 10x3/uL (130-400); RBC 4.77 10x6/uL (4.00-5.40); RDW 13.5 % (11.5-14.5)
[2016-12-28 20:39] LABS: CALC OSMOLALITY 291 mosm/kg (275-300); CALCIUM 9.1 mg/dL (8.5-10.1); CARBON DIOXIDE 24.9 mmol/L (21.0-32.0); CHLORIDE - SERUM 108 mmol/L (98-107); CREATININE - SERUM 0.7 mg/dL (0.6-1.3); GLUCOSE 131 mg/dL (74-106); POTASSIUM - SERUM 3.9 mmol/L (3.5-5.1); SODIUM 146 mmol/L (136-145); UREA NITROGEN 9 mg/dL (7-18); eGFR NON AFRICAN AMERICAN 83 mL/min (90-120)
--- NOTE | 2016-12-28 23:01 | NUR ---
RECEIVED IN BEDROOM. RESTING IN BED EYES CLOSED. VERY LETHARGIC. HELD PM PSYCH MEDS AND PATIENT REFUSED ALL OTHER MEDS. CALM AND COOPERATIVE WITH CARE AND ASSESSMENTS. NO SIGNS OF AGGRESSION. ENCOURAGE TO EXPRESS NEEDS. RESTING IN BED WITH EYES CLOSED. CONTINUE PLAN OF CARE
--- NOTE | 2016-12-28 23:34 | NUR ---
URINE SENT TO LAB FOR WARRENTED TESTS.
[2016-12-28 23:47] LABS: APPEARANCE HAZY (CLEAR); BACTERIA MANY /hpf (NONE SEEN); BILIRUBIN NEGATIVE (NEGATIVE); COLOR YELLOW (YELLOW); EPITHELIAL CELLS RARE /hpf (0-5); GLUCOSE NEGATIVE (NEGATIVE); KETONE SMALL mg/dL (NEGATIVE); NITRITE POSITIVE (NEGATIVE); PROTEIN NEGATIVE (NEGATIVE); RED CELLS - URINE NONE SEEN /hpf (0-5); UROBILINOGEN NORMAL (NORMAL)
[2016-12-29 08:58] VITALS: BP 118/59
--- NOTE | 2016-12-29 09:19 | PN ---
PATIENT:ROSA GARCIA MEDICAL RECORD: [id number] LOCATION:[facility]NY [facility] ADMISSION DATE: 12/18/16 PROGRESS NOTE DATE OF SERVICE: 12/28/2016 SUBJECTIVE: The patient's case was discussed with staff. She has no new complaint. OBJECTIVE: The patient has not been aggressive today. She is not eating very well. She did sleep reasonably well. ASSESSMENT: No change in diagnoses. PLAN: The patient will be maintained on current medications, which have been reviewed. She was started on Megace yesterday, and at this point, it has not had any effect on her appetite. Her long-term prognosis is quite poor. Her dementia is advanced. She has multiple symptoms of failure to thrive. She has multiple and complex medical problems. TRANSINT:[id number] Voice Confirmation ID: [id number] DOCUMENT ID: [id number] CHRISTY OROZCO MD at 0919 CC: [id number] DICTATION DATE: 12/28/16 1123 MENTAL HEALTH COORDINATOR: 12/28/16 1232 ADM IN [facility] [address] [place] [address]
[2016-12-29 20:14] VITALS: BP 106/51
--- NOTE | 2016-12-30 00:27 | NUR ---
RECEIVED IN HALLWAY. LAYING IN RECLINER. CONFUSED. YELLING OUT AT TIMES. COOPERATIVE WITH ASSESSMENT. NO SIGNS OF AGGRESSION. REDIRECT AND REORIENT NEEDED. RESTING IN RECLINER EYES OPEN AT THIS TIME. CONTINUES TO YELL OUT. CONTINUE PLAN OF CARE
--- NOTE | 2016-12-30 09:05 | PN ---
PATIENT:ROSA GARCIA MEDICAL RECORD: [id number] LOCATION:[facility] ADMISSION DATE: 12/18/16 PROGRESS NOTE DATE OF SERVICE: 12/29/2016 SUBJECTIVE: The patient's case was discussed with staff. She has no new complaint. OBJECTIVE: The patient is severely impaired, but not behaviorally disruptive. She is not making much sense when interacting, but that is not new. Unfortunately, today, she is not even oriented to person. ASSESSMENT: No change in diagnoses. PLAN: The patient is severely impaired and is in need of long-term comfort care measures. TRANSINT:[id number] Voice Confirmation ID: [id number] DOCUMENT ID: [id number] CHRISTY OROZCO MD at 0905 CC: [id number] DICTATION DATE: 12/29/16 140 WESTERN TACK ASSEMBLY LINE WORKER: 12/29/160 ADM IN [facility] [address] [place] [address]
[2016-12-30 09:44] VITALS: BP 130/76
--- NOTE | 2016-12-30 12:12 | NUR ---
Nutrition Follow Up: Pt is eating 9% meal avg on a diabetic [facility] soft diet. +BM 12/25/16-no BM x 5 days. Labs reviewed. Meds noted including Megace, Questran. Will change diet to regular [facility] soft to encourage po intake. RD following.
--- NOTE | 2016-12-30 13:41 | NUR ---
PT IS LABILE WITH PERIODS OF COOPERATION MIXED WITH PERIODS OF RESTLESSNESS AND AGITATION. PT IS VERY SLEEPY AND NAPPING THROUGH THE DAY BUT SHE DOES AWAKEN EASILY. NO SIGNS OF PAIN OR DISCOMFORT. PT IS A FEEDER. PT DID NOT EAT BREAKFAST BUT SHE DID EAT A SNACK AND DRANK 1 ORANGE JUICE LATER. MEDICATIONS GIVEN ORDERD. FALL PRECAUTIONS MAINTAINED. WILL CONTINUE TO MONITOR AND CONTINUE [facility] PLAN OF CARE.
[2016-12-30 20:17] VITALS: BP 141/72
--- NOTE | 2016-12-31 00:01 | NUR ---
RECEIVED IN BEDROOM. RESTING IN BED WITH EYES CLOSED. RESPONDS TO TOUCH ONLY. CALM AND COOPERATIVE WITH ASSESSMENT. LETARGIC. HELD PM MEDS. CONTINUES TO REST EYES CLOSED IN BED. CONTINUE PLAN OF CARE
--- NOTE | 2016-12-31 08:00 | NUR ---
Rec'd pt in hallway, lethargic, confused, med compliant, auditory hallucinatins noted, calling for mother, no s/s adverse reaction to meds, cooperative, calm, no aggression noted.
[2016-12-31 09:08] VITALS: BP 152/95
--- NOTE | 2016-12-31 12:52 | PN ---
PATIENT:ROSA GARCIA MEDICAL RECORD: [id number] LOCATION:[facility]ENNY Hernandez ADMISSION DATE: 12/18/16 PROGRESS NOTE DATE OF SERVICE: 12/30/2016 SUBJECTIVE: The patient's case was discussed with staff. She has no new complaint. OBJECTIVE: The patient is in good behavioral control with limited insight about her condition. She is severely impaired and is not eating. She is receiving Megace. ASSESSMENT: No change in diagnoses. PLAN: This patient is in a desperate situation. If she cannot or will not eat, obviously her prognosis is exceedingly poor and will come to an end quickly. I do not recommend a feeding tube in someone with an advanced dementia. Staff is making every effort to get nutrition into her and hopefully the Megace will help. If a few more days of this goes on, I think it is only reasonable to refer her to comfort care measures. TRANSINT:[id number] Voice Confirmation ID: [id number] DOCUMENT ID: [id number] CHRISTY OROZCO MD at 1252 CC: [id number] DICTATION DATE: 12/30/16 1341 SUPERVISOR GATE SERVICES: 12/30/16 1406 ADM IN [facility] [address] [place] [address]
[2016-12-31 19:36] VITALS: BP 129/54
--- NOTE | 2016-12-31 23:09 | NUR ---
RECEIVED IN HALLWAY OUTSIDE OF NURSES JUANA. RESTING IN RECLINER WITH EYES OPEN. CALM AND COOPERATIVE WITH CARE AND ASSESSMENT. NO SIGNS OF AGGRESSION. HALLUCINATING. REFUSED PM MEDICATIONS. REDIRECT AND REORIENT NEEDED. RESTING WITH EYES CLOSED AT THIS TIME. CONTINUE PLAN OF CARE.
--- NOTE | 2017-01-01 05:23 | NUR ---
PATIENT IS ANXIOUS. HALLUCINATING. YELLING OUT FOR RAMIREZ. RESISTIVE TO CARE. UNABLE TO REDIRECT. PRN ATIVAN 0.5 MG IM GIVEN FOR INCREASING ANXIETY.
--- NOTE | 2017-01-01 09:56 | PN ---
PATIENT:ROSA GARCIA MEDICAL RECORD: [id number] LOCATION:JENNY Hernandez ADMISSION DATE: 12/18/16 PROGRESS NOTE DATE OF SERVICE: 12/31/2016 SUBJECTIVE: The patient's case was discussed with staff. She has no new complaint. OBJECTIVE: The patient is in good behavioral control with limited insight about her condition. She tolerates her medicines well. ASSESSMENT: No change in diagnoses. PLAN: Brief supportive and educational interventions were made. Care Home prognosis is guarded. TRANSINT:[id number] Voice Confirmation ID: [id number] DOCUMENT ID: [id number] CHRISTY OROZCO MD at 0956 CC: [id number] DICTATION DATE: 12/31/16 1308 INSTITUTIONAL CUSTODIAN: 12/31/16 1315 ADM IN [place] [id number] [place] [id number]
[2017-01-01 10:06] VITALS: BP 118/64
--- NOTE | 2017-01-01 13:29 | NUR ---
B) PATIENT IS SLEEPING TODAY, JAMEY T DID FEED HER 100% BREAKFAST, BUT PATIENT WENT BACK TO SLEEP AFTER THAT. PATIENT IS CONFUSED AND KLETSEL DEHE WINTUN, CONVERSATION IS DIFFICULT YOU HAVE TO YELL FOR PATIENT TO HEAR AND THEN SHE MISUNDERSTANDS THE WORDS SPOKE AND REPEATS SOMETHING BACK TO YOU THAT HAS NOTHING TO DO WITH THE QUESTION AT HAND. PATIENT'S RIGHT BREAST IS EXTREMEMLY EXCORIATED, DID APPLY NYSTATIN POWDER, IN BETWEEN HER LEGS IS PINK, BUT HEALING. I) PROVIDE PRESCRIBED MEDS CRUSHED IN AN ORANGE DRINK. R) PATIENT TOLERATES MEDS WELL IN A DRINK. P) CONTINUE POC.
[2017-01-01 19:22] VITALS: BP 115/83
--- NOTE | 2017-01-02 02:07 | NUR ---
B) Patienty is quiet and calm this shift, no yelling or outburst noted, oriented to self only I) Administered scheduled medications crushed in orange drink R) Medication compliant, resting quietly in bed, P) Continue plan of care.
[2017-01-02 09:06] VITALS: BP 122/62
--- NOTE | 2017-01-02 09:17 | PN ---
PATIENT:ROSA GARCIA MEDICAL RECORD: [id number] LOCATION:JENNY [facility] ADMISSION DATE: 12/18/16 PROGRESS NOTE DATE OF SERVICE: 01/01/2017 SUBJECTIVE: The patient's case was discussed with staff. She has no new complaint. OBJECTIVE: The patient is in good behavioral control with limited insight about her condition. She generally tolerates her medicines well. ASSESSMENT: No change in diagnoses. PLAN: The patient refused her medicines last night, although she took them this morning. When asked about this, she has no recollection and is unable to give me any reasonable explanation about the situation. This complicates her treatment significantly since she is only intermittently compliant with medications. At this point, she is calm and cooperative and I do not see any reason to make changes in her medicines today. I anticipate she can be transitioned out of the hospital soon. She is probably at or close to her baseline level of functioning, even though it is going to present a significant management challenge intermediate frame tender. TRANSINT:[id number] Voice Confirmation ID: [id number] DOCUMENT ID: [id number] CHRISTY OROZCO MD at 0917 CC: [id number] DICTATION DATE: 01/01/17 1007 BORING MACHINE FEEDER: 01/01/17 1104 ADM IN [place] [place] [address]
--- NOTE | 2017-01-02 11:22 | NUR ---
B) PATIENT IS CONFUSED, BUT SHE IS PLEASANT TODAY, SHE HAS NOT SHOWN ANY AGGRESSION. SHE IS A TWO PERSON LIFT. I) PROVIDE PRESCRIBED MEDS. R) PATIENT IS COMPLIANT WITH CRUSHED MEDS IN AN ORANGE DRINK OR SHAKE. SHE IS SLEEPY AND LAYING ON THE COUCH CURRENTLY. P) CONTINUE POC.
--- NOTE | 2017-01-03 01:34 | NUR ---
B) Patient is alert and oriented to self, very confused and disoriented, unaware of surroundings, I) Administed scheduled medications, crushed in her orange drink, monitored for safety R) Medication compliant, combative with transfers and pericare P) Continue plan of care.
[2017-01-03 08:00] VITALS: BP 132/74
--- NOTE | 2017-01-03 11:29 | PN ---
PATIENT:ROSA GARCIA MEDICAL RECORD: [id number] LOCATION:JENNY Hernandez ADMISSION DATE: 12/18/16 PROGRESS NOTE DATE OF SERVICE: 01/02/2017 SUBJECTIVE: The patient's case was discussed with staff. She has no new complaint. OBJECTIVE: The patient is in good behavioral control with limited insight about her condition. She tolerates her medicines well. ASSESSMENT: No change in diagnoses. PLAN: I anticipate the patient can be transitioned out of the hospital soon. Her long-term prognosis is guarded. TRANSINT:[id number] Voice Confirmation ID: [id number] DOCUMENT ID: [id number] CHRISTY OROZCO MD at 1129 CC: [id number] DICTATION DATE: 01/02/17 0939 LONG TERM CARE ADMINISTRATOR: 01/02/17 1243 ADM IN [place] [id number] [place] [address]
--- NOTE | 2017-01-03 14:41 | NUR ---
B) PATIENT IS AWAKE AND ALERT, SHE IS TALKING AND EATING AND TAKING HER MEDICATION TODAY. I) PROVIDE PRESCRIBED MEDS. R) PATIENT IS COMPLIANT WITH MEDS. SHE HAS NOT SHOWN AGGRESSION TODAY. P) CONTINUE POC.
[2017-01-03 21:13] VITALS: BP 136/54
--- NOTE | 2017-01-04 05:03 | NUR ---
B) Patient is alert and oriented to self, yelling out for unseen people at times, asking the same question repeatly at times I) Administered scheduled medications crushed, monitored for safety R) Medication compliant, difficult with transfers and pericare, P) Continue plan of care.
[2017-01-04 07:00] VITALS: BP 112/44
--- NOTE | 2017-01-04 12:00 | NUR ---
ORIENTED TO SELF ONLY.HAS BEEN QUIET MOST OF DAY,SLEEPING.HALLUCINATES AT TIMES,TALKING TO PEOPLE THAT ARE NOT THERE.REQUIRES TOTAL CARE.SPOONFED PER STAFF WITH POOR RESPONSE BUT DOES DRINK ENSURE.TAKES MEDS CRUSHED AND PLACED IN QUESTRAN.WILL CONTINUE WITH PLAN OF CARE,MONITOR FOR CHANGES AND SAFETY.
--- NOTE | 2017-01-04 12:01 | PN ---
PATIENT:ROSA GARCIA MEDICAL RECORD: [id number] LOCATION:JENNY Hernandez ADMISSION DATE: 12/18/16 PROGRESS NOTE DATE OF SERVICE: 01/03/2017 SUBJECTIVE: The patient's case was discussed with staff. She has no new complaint. OBJECTIVE: The patient is in good behavioral control with poor insight about her condition. She tolerates her medicines well. ASSESSMENT: No change in diagnoses. PLAN: Brief supportive and educational interventions were made. Long-term prognosis is guarded. TRANSINT:[id number] Voice Confirmation ID: [id number] DOCUMENT ID: [id number] CHRISTY OROZCO MD at 1201 CC: [id number] DICTATION DATE: 01/03/17 1145 E COMMERCE STRATEGIST: 01/03/17 1259 ADM IN [place] [id number] [place] [address]
[2017-01-04 20:29] VITALS: BP 180/80
--- NOTE | 2017-01-04 20:46 | NUR ---
RECEIVED IN [facility]. RESTING IN A RECLINING CHAIR WITH EYES OPEN. CALM AND COOPERATIVE WITH CARE AND ASSESSMENTS. NO SIGNS OF AGGRESSION. REDIRECT AND REORIENT NEEDED. RESTING IN RECLINER WITH EYES CLOSED AT THIS TIME. CONTINUE PLAN OF CARE
[2017-01-05 07:00] VITALS: BP 135/66
--- NOTE | 2017-01-05 09:58 | NUR ---
PT AM MEDS ADMINISTERED CRUSHED IN APPLESAUCE. PT RESTING IN DAY ROOM AT THIS TIME, DENIES NEEDS. WCTM.
--- NOTE | 2017-01-05 13:51 | PN ---
PATIENT:ROSA GARCIA MEDICAL RECORD: [id number] LOCATION:JENNY Hernandez ADMISSION DATE: 12/18/16 PROGRESS NOTE DATE OF SERVICE: 01/04/2017 SUBJECTIVE: The patient's case was discussed with staff. She has no new complaint. OBJECTIVE: The patient is in good behavioral control with poor insight about her condition. She does tolerate her medicines well. ASSESSMENT: No change in diagnoses. PLAN: Brief supportive and educational interventions were made. The patient's long-term prognosis is guarded. I anticipate she can be transitioned out of the hospital soon if this level of improvement is maintained. TRANSINT:[id number] Voice Confirmation ID: [id number] DOCUMENT ID: [id number] CHRISTY OROZCO MD at 1351 CC: [id number] DICTATION DATE: 01/04/17 1220 BODY DESIGN CHECKER: 01/04/17 1309 ADM IN [facility] [address] [place] [address]
[2017-01-05 20:00] VITALS: BP 118/58
--- NOTE | 2017-01-05 21:35 | NUR ---
RECEIVED IN BEDROOM. ASSIST TO TRANSFERE TO BED. CALM AND COOPERATE WITH CARE AND ASSESSMENTS. NO SIGNS OF AGGRESSION. REDIRECT AND REORIENT NEEDED. RESTING IN BED WITH EYES CLOSED. CONTINUE PLAN OF CARE
[2017-01-06 09:15] VITALS: BP 130/62
--- NOTE | 2017-01-07 02:28 | NUR ---
RECEIVED IN PATIENT ROOM. RESTING IN BED WITH EYES CLOSED. AWAKES TO VOICE. CALM AND COOPERATIVE WITH CARE AND ASSESSMENT. NO SIGNS OF AGGRESSION. ENCOURAGE TO EXPRESS NEEDS. REDIRECT AND REORIENT NEEDED. RESTING IN BED WTIH EYES CLOSED AT THIS TIME. CONTINUE PLAN OF CARE.
[2017-01-07 09:55] VITALS: BP 116/71
--- NOTE | 2017-01-07 10:04 | NUR ---
B) PATIENT IS AWAKE AND ALERT THIS AM, SHE IS [place] AND IT IS DIFFICULT TO COMMUNICATE WITH HER, SHE DID ASK STAFF THIS AM "IS IT TIME TO GET UP NOW" SHE IS PLEASANT UNTIL STAFF TRIED TO REMOVE HER BLANKET TO GET HER UP, SHE THEN GRABBED STAFF'S ARM AND PUT HER FINGERNAILS IN THEIR ARMS, BUT THEN SHE RELAXED. PATIENT IS A TOTAL ASSIST AND DID NOT HELP STAFF AT ALL. I) PROVIDE PRESCRIBED MEDS. R) PATIENT IS COMPLIANT WITH MEDS CRUSHED IN AN ORANGE DRINK AND SHE TAKES THEM EASILY. P) CONTINUE POC.
--- NOTE | 2017-01-07 10:15 | PN ---
PATIENT:ROSA GARCIA MEDICAL RECORD: [id number] LOCATION:JENNY Hernandez ADMISSION DATE: 12/18/16 PROGRESS NOTE DATE OF SERVICE: 12/25/2016 SUBJECTIVE: No new verbal complaint. OBJECTIVE: The patient continues to show lability of affect, but overall is improved. She is fairly cooperative on medication. On exam, mood remains irritable. Affect is very shallow and childlike. Speech is rambling. Content of thought exhibits delusional ideation secondary to profound sensorium deficits. Sensorium itself is unchanged. ASSESSMENT: No change in diagnosis. PLAN: 1. Maintain current medication. 2. Continue supportive therapy. TRANSINT:[id number] Voice Confirmation ID: [id number] DOCUMENT ID: [id number] NORRIS NEWBY III, MD at 1015 CC: [id number] DICTATION DATE: 12/25/16 1109 SIGNALS ANALYST: 12/25/16 1117 ADM IN [place] [id number] [place] [address]
--- NOTE | 2017-01-07 10:15 | PN ---
PATIENT:ROSA GARCIA MEDICAL RECORD: [id number] LOCATION:JENNY Hernandez ADMISSION DATE: 12/18/16 PROGRESS NOTE DATE OF SERVICE: 01/05/2017 SUBJECTIVE: No new complaint. OBJECTIVE: The patient over the past week has shown episodes of agitation, at other times more sedation. This morning, on exam, the patient orients well toward the examiner, but is not conversant. The patient's mood is euthymic. Affect is constricted. Speech is terse. Content of thought is negative for overt psychosis. Sensorium is unchanged. ASSESSMENT: No change in diagnosis. PLAN: 1. Awaiting placement at [facility]. 2. Continue all current medications and supportive therapy. TRANSINT:[id number] Voice Confirmation ID: [id number] DOCUMENT ID: [id number] NORRIS NEWBY III, MD at 1015 CC: [id number] DICTATION DATE: 01/05/[address] REPORTER: 01/05/17 1243 ADM IN [place] [address] [place] [address]
--- NOTE | 2017-01-07 10:15 | PN ---
PATIENT:ROSA GARCIA MEDICAL RECORD: [id number] LOCATION:[facility] ADMISSION DATE: 12/18/16 PROGRESS NOTE DATE OF SERVICE: 01/06/2017 SUBJECTIVE: No new complaint. OBJECTIVE: The patient has been more awake and alert today. She has episodes of volubility, but for the most part is doing reasonably well. She is tolerating medications and eating well today. On exam, mood is for the most part euthymic. Affect very childlike. Speech is rambling. Content of thought shows no evidence of overt psychosis. Sensorium is unchanged. ASSESSMENT: No change in diagnosis. PLAN: 1. Maintain current medication. 2. Continue supportive therapy. TRANSINT:[id number] Voice Confirmation ID: [id number] DOCUMENT ID: [id number] NORRIS NEWBY III, MD at 1015 CC: [id number] DICTATION DATE: 01/06/17 1110 COTTON PROGRAM TECHNICIAN: 01/06/17 1356 ADM IN [place] [id number] [place] [id number]
[2017-01-07] MEDS ORDERED: MEGACE40 MG PO (10:50)
[2017-01-07] MEDS ORDERED: DEPAKENE250 MG PO (10:51)
[2017-01-07] MEDS ORDERED: DEPAKOTE SPRIN125 MG PO (10:51)
[2017-01-07] MEDS ORDERED: FLORAJEN3 CAPS460 MG PO (10:52)
[2017-01-07] MEDS ORDERED: PROTONIX FOR OR40 MG PO (10:52)
[2017-01-07] MEDS ORDERED: GEODON20 MG PO (10:52)
[2017-01-07] MEDS ORDERED: GLUCOPHAGE500 MG PO (10:53)
--- NOTE | 2017-01-07 11:44 | NUR ---
Nutrition Follow Up: Pt is eating 52% meal avg on a diabetic cardiac diet. She is drinking Ensure daily per chart. Pt continues with poor po intake. +BM 12/30/16 - no BM x 8 days. Labs reviewed. Meds noted including Megace. Rec liberalizing diet to encourage po intake. Rec consider bowel regimen. Rec continue appetite stimulant. Will continue to provide selective menus and honor food preferences within diet ordered. RD following.
[2017-01-07 19:44] VITALS: BP 135/69
--- NOTE | 2017-01-08 02:12 | NUR ---
B) patient is alert and oriented to name, very confused and a total assist, combative with care at times, I) Administered scheduled medications, monitored for safety, R) Medication compliant, crushed in orange drink, P) Continue plan of care.
[2017-01-08 09:52] VITALS: BP 114/56
--- NOTE | 2017-01-08 11:51 | NUR ---
B) PATIENT IS AWAKE AND ALERT, SHE DID NOT WANT TO GET UP THIS AM, SHE TRIED TO HOLD ONTO THE RAILS AND GRAB AT STAFF. DID ASSIST PATIENT UP TO THE [place] CHAIR AND SHE IS CONFUSED AND [place] SO IT IS DIFFICULT TO COMMUNICATE WITH HER. I) PROVIDE PRESCRIBED MEDS. R) PATIENT TAKES HER MEDS CRUSHED IN HER DRINK AND SHE DRINKS IT WELL. PLACEMENT DECISION IS STILL IN THE WORKS. P) CONTINUE POC.
--- NOTE | 2017-01-08 15:08 | NUR ---
PATIENT HAS BEEN ACCEPTED TO [facility] UNTIL [facility] HAS AN OPEN BED. PATIENT IS PACKED AND READY TO GO.
--- NOTE | 2017-01-08 15:34 | NUR ---
CALLED REPORT TO DERRICK AT [facility].
--- NOTE | 2017-01-08 15:35 | NUR ---
PATIENT IS NOW D/C'D FROM [facility]. STAFF FROM [facility] PICKED HER UP, HARD COPY SENT WITH NEUROPATHOLOGIST AND PATIENT'S W/C.
--- NOTE | 2017-01-10 06:01 | PN ---
PATIENT:ROSA GARCIA MEDICAL RECORD: [id number] LOCATION:[facility] ADMISSION DATE: 12/18/16 PROGRESS NOTE DATE OF SERVICE: 01/08/2017 SUBJECTIVE: No new complaint. OBJECTIVE: The patient's discharge has been delayed due to lack of bed availability. She may be discharged either today or tomorrow. On exam, mood for the most part euthymic. Affect is shallow and childlike. Speech is tangential. Content of thought is negative for overt psychosis. Sensorium unchanged. ASSESSMENT: No change in diagnosis. PLAN: 1. Continue all current medications and supportive therapy. 2. Anticipating discharge today or tomorrow. TRANSINT:[id number] Voice Confirmation ID: [id number] DOCUMENT ID: [id number] NORRIS NEWBY III, MD at 0601 CC: [id number] DICTATION DATE: 01/08/17 1110 COUNTY ASSESSOR: 01/08/17 1148 DIS IN 01/08/17 [place] [id number] [place] [address]
--- NOTE | 2017-01-10 06:01 | DS ---
PATIENT:ROSA GARCIA :[birth year] MEDICAL RECORD: [id number] DISCHARGE SUMMARY ADMISSION DATE: 12/18/16 DISCHARGE DATE: 01/08/17 DATE OF ADMISSION: 12/18/2016. DATE OF DISCHARGE: 01/07/2017. HISTORY OF PRESENT ILLNESS: Third alf admission for this 89-year-old white female. The patient had a previous history of Alzheimer dementia. She was referred from [facility] because of resumption of agitation and combativeness. Routine doses of Geodon and Namenda had been discontinued while at the hospital for behavioral medicine. For further details, please see previously dictated history. COURSE IN THE HOSPITAL: The patient was seen in consultation by Dr. Bain. He noted the presence of hypothyroidism, deep venous thrombosis, past history of CVA, hyperlipidemia, diabetes, and vitamin D deficiency. Over the course of the hospitalization, the patient was placed back on routine doses of Geodon 20 mg h.s. She was also placed on Depakote 750 mg daily. She achieved a blood level in the 30s, but this was considered sufficient for behavioral control. She was maintained on previous medications for insulin including Glucophage and insulin. Over the course of the hospitalization, the patient initially was quite agitated and very difficult to redirect. With the resumption of routine medications as described above, the patient's behavior improved considerably. By the time of discharge, she was stable enough to return to the hospital for behavioral medicine environment, although she will be transferred to [facility]. FINAL DIAGNOSES: AXIS I: Alzheimer dementia with behavioral disturbance. AXIS II: No diagnosis. AXIS III: Hypothyroidism, diabetes, hypercholesterolemia, gastroesophageal reflux disease. AXIS IV: Moderate. AXIS V: 38. PLAN: 1. The patient is discharged on current medications. 2. Diet and activities as tolerated. 3. Follow up through primary care physician assigned at hospital for behavioral medicine. TRANSINT:[id number] Voice Confirmation ID: [id number] DOCUMENT ID: [id number] NORRIS NEWBY III, MD at 0601 CC: [id number] DICTATION DATE: 01/07/17 1107 CUSTOMER SERVICE PROFESSIONAL: 01/08/17 0156 DIS IN 01/08/17 [place] [address]
== END 2017-01-08 15:35 | DRG 57 ==
LOC: D.PSYCH 14:11
PROVIDERS: Family Medicine; ADMIT Psychiatry & Neurology Psychiatry
DX: G30.9 Alzheimer's disease, unspecified (principal); F02.81 Dementia in other diseases classified elsewhere, unspecified severity, with behavioral disturbance; N39.0 Urinary tract infection, site not specified; I82.509 Chronic embolism and thrombosis of unspecified deep veins of unspecified lower extremity; E03.9 Hypothyroidism, unspecified; E11.9 Type 2 diabetes mellitus without complications; E78.1 Pure hyperglyceridemia; K21.9 Gastro-esophageal reflux disease without esophagitis; Z74.09 Other reduced mobility; E78.5 Hyperlipidemia, unspecified; E55.9 Vitamin D deficiency, unspecified; F41.8 Other specified anxiety disorders; Z86.73 Personal history of transient ischemic attack (TIA), and cerebral infarction without residual deficits; B96.20 Unspecified Escherichia coli [E. coli] as the cause of diseases classified elsewhere; Z79.01 Long term (current) use of anticoagulants